=== PATIENT | male | born 1935 | race Two or more races ===

== ENCOUNTER 2017-01-18 18:46 | Inpatient (IN) | payer MEDICARE, OTHER ==
[~2017-01-18] VITALS: Ht 165.1 cm; Wt 61.2 kg
[2017-01-18] MEDS ORDERED: TAMSULOSIN HCL0.4 MG ORAL (19:06)
[2017-01-18] MEDS ORDERED: DEXAMETHASONE4 M1 PO (19:06)
[2017-01-18] MEDS ORDERED: FENTANYL1 EAC1 TOPIC (19:06)
[2017-01-18] MEDS ORDERED: REVLIMID15 MG PO (19:06)
[2017-01-18] MEDS ORDERED: HYDROMORPHO2 MG/1 M5 PO (19:06)
[2017-01-18 19:30] VITALS: BP 122/88
[2017-01-18 19:58] LABS: APPEARANCE,URINE CLEAR; KETONES,URINE 1+ (NEGATIVE); LEUKOCYTE ESTERASE ,URINE NEGATIVE (NEGATIVE); NITRITE,URINE NEGATIVE (NEGATIVE); PH,URINE 6 (4.5-8.0); PROTEIN,URINE 3+ (NEGATIVE); UROBILINOGEN,URINE 1 MG/DL (0.0-1.0)
[2017-01-18 20:08] LABS: ANION GAP 10 mmol/L (5-15); CALCIUM 8.6 MG/DL (8.5-10.1); CARBON DIOXIDE 26 MMOL/L (21-32); CHLORIDE 98 MMOL/L (98-107); CREATININE 1.5 MG/DL (0.55-1.30); MEAN CORPUSCULAR HEMOGLOBIN 28.9 PG (27.0-31.0); MEAN CORPUSCULAR HGB CONC 31.4 G/DL (32.0-36.0); MEAN CORPUSCULAR VOLUME 92 FL (80-99); MEAN PLATELET VOLUME 5.9 FL (6.5-10.1); PLATELET COUNT 169 K/UL (150-450); RED BLOOD COUNT 2.54 M/UL (4.70-6.10); RED CELL DISTRIBUTION WIDTH 16.8 % (11.6-14.8); SODIUM 133 MMOL/L (136-145); WHITE BLOOD COUNT 7.5 K/UL (4.8-10.8)
[2017-01-18 20:22] LABS: ALANINE AMINOTRANSFERASE 21 U/L (12-78); ALBUMIN/GLOBULIN RATIO 0.4 (1.0-2.7); ASPARTATE AMINO TRANSFERASE 46 U/L (15-37); TOTAL PROTEIN 7.5 G/DL (6.4-8.2)
[2017-01-18 20:23] LABS: BACTERIA,URINE FEW /HPF; WBC,URINE 0-2 /HPF (0 - 0)
[2017-01-18 20:30] VITALS: BP 126/84
[2017-01-18 21:05] LABS: BAND NEUTROPHILS % (MANUAL) 1 % (0-8); LYMPHOCYTES % (MANUAL) 10 % (20-45); NEUTROPHILS % (MANUAL) 80 % (45-75); TOTAL CELLS COUNTED 100
[2017-01-18 21:06] LABS: ANISOCYTOSIS 1+; BASOPHILS % (MANUAL) 0 % (0-2); EOSINOPHILS % (MANUAL) 0 % (0-3); PLATELET ESTIMATE DECREASED
[2017-01-18 21:07] LABS: PLATELET MORPHOLOGY NORMAL; POLYCHROMASIA 1+
[2017-01-18 21:45] VITALS: BP 130/82
--- NOTE | 2017-01-18 22:50 | Emergency Room Report ---
History of Present Illness General Chief Complaint: Altered Level of Consciousness Source: Medical Record, EMS Present Illness HPI 81-year-old male presents ED for evaluation. Patient brought in by EMS for evaluation. Per EMS patient has had multiple falls at home today. Patient appears weak and more lethargic than usual. Patient also is of low grade fever. Upon arrival patient showing no signs of distress. Patient is unable to provide any additional history at this time. No other aggravating or relieving factors. No other associated symptoms Allergies: Coded Allergies: No Known Allergies (Unverified , 01/18/17) Patient History Past Medical History: DM, other - multiple myeloma Social History: Denies: smoking, alcohol use, drug use Immunizations: UTD Reviewed Nursing Documentation: PMH: Agreed, PSxH: Agreed Nursing Documentation-PMH Past Medical History: No History, Except For Hx Diabetes: Yes - dm2 Hx Cancer: Yes - multiple myleoma Review of Systems All Other Systems: limited Physical Exam Vital Signs Date Time Temp Pulse Resp B/P (MAP) Pulse Ox O2 Delivery O2 Flow Rate FiO2 01/18/17 18:55 100.8 110 16 126/88 98 Sp02 EP Interpretation: reviewed, normal General Appearance: no apparent distress, alert, GCS 15, non-toxic Head: normocephalic, atraumatic Eyes: bilateral eye normal inspection, bilateral eye PERRL ENT: hearing grossly normal, normal pharynx, no angioedema, normal voice Neck: full range of motion, supple/symm/no masses Respiratory: chest non-tender, lungs clear, normal breath sounds, speaking full sentences Cardiovascular #1: regular rate, rhythm, no edema Cardiovascular #2: 2+ carotid (R), 2+ carotid (L), 2+ radial (R), 2+ radial (L) , 2+ dorsalis pedis (R), 2+ dorsalis pedis (L) Gastrointestinal: normal bowel sounds, non tender, soft, non-distended, no guarding, no rebound Rectal: deferred Genitourinary: normal inspection, no CVA tenderness Musculoskeletal: back normal, gait/station normal, normal range of motion, non- tender Neurologic: other - lethargic Psychiatric: other - lethargic Reflexes: 3+ bicep (R), 3+ bicep (L), 3+ tricep (R), 3+ tricep (L), 3+ knee (R) , 3+ knee (L) Skin: normal color, no rash, warm/dry, well hydrated Lymphatic: no adenopathy Medical Decision Making Diagnostic Impression: Primary Impression: Altered level of consciousness Additional Impressions: Anemia Qualified Codes: D64.9 - Anemia, unspecified CHF (congestive heart failure) Qualified Codes: I50.9 - Heart failure, unspecified Renal insufficiency ER Course Hospital Course 81-year-old male presents with multiple falls, weakness, low-grade fever Differential diagnoses include: [place]/unstable angina, arrythmia, dehydration, CVA/ TIA Clinical course Patient placed on stretcher. on monitoring analyst. After initial history and physical I ordered labs, EKG, chest x-ray, IVFs, CT Brain labs reviewed- no leukocytosis, hemoglobin/hematocrit 7.3/23.4, K 3.0, Cr 1.5, BNP elevated, troponins negative EKG- NSR, no acute ischemic changes interpreted by me Chest x-ray- cardiomegaly. congestion CT brain-unremarkable Abx given. Case discussed with Dr. Gallo and he agreed to accept the patient to his service for further care and support I. I feel this is a highly complex case requiring extensive working including EKG/Rhythm strip, Xray/CT/US, Blood/urine lab work, repeat exams while in ED, and administration of strong opiates/narcotics for pain control, admission to hospital or close patient follow up. Diagnosis - ALOC, anemia, CHF, renal insufficiency admitted to telemetry in serious condition Labs Test 01/18/17 19:30 White Blood Count 7.5 K/UL (4.8-10.8) Red Blood Count 2.54 M/UL (4.70-6.10) Hemoglobin 7.3 G/DL (14.2-18.0) Hematocrit 23.4 % (42.0-52.0) Mean Corpuscular Volume 92 FL (80-99) Mean Corpuscular Hemoglobin 28.9 PG (27.0-31.0) Mean Corpuscular Hemoglobin Concent 31.4 G/DL (32.0-36.0) Red Cell Distribution Width 16.8 % (11.6-14.8) Platelet Count 169 K/UL (150-450) Mean Platelet Volume 5.9 FL (6.5-10.1) Neutrophils (%) (Auto) % (45.0-75.0) Lymphocytes (%) (Auto) % (20.0-45.0) Monocytes (%) (Auto) % (1.0-10.0) Eosinophils (%) (Auto) % (0.0-3.0) Basophils (%) (Auto) % (0.0-2.0) Differential Total Cells Counted 100 Neutrophils % (Manual) 80 % (45-75) Lymphocytes % (Manual) 10 % (20-45) Monocytes % (Manual) 9 % (1-10) Eosinophils % (Manual) 0 % (0-3) Basophils % (Manual) 0 % (0-2) Band Neutrophils 1 % (0-8) Platelet Estimate Decreased Platelet Morphology Normal Polychromasia 1+ Anisocytosis 1+ Urine Color Yellow Urine Appearance Clear Urine pH 6 (4.5-8.0) Urine Specific [place] 1.010 (1.005-1.035) Urine Protein 3+ (NEGATIVE) Urine Glucose (UA) Negative (NEGATIVE) Urine Ketones 1+ (NEGATIVE) Urine Occult Blood 4+ (NEGATIVE) Urine Nitrite Negative (NEGATIVE) Urine Bilirubin Negative (NEGATIVE) Urine Urobilinogen 1 MG/DL (0.0-1.0) Urine Leukocyte Esterase Negative (NEGATIVE) Urine RBC 5-10 /HPF (0 - 0) Urine WBC 0-2 /HPF (0 - 0) Urine Squamous Epithelial Cells None /LPF (NONE/OCC) Urine Bacteria Few /HPF (NONE) Sodium Level 133 MMOL/L (136-145) Potassium Level 3.0 MMOL/L (3.5-5.1) Chloride Level 98 MMOL/L (98-107) Carbon Dioxide Level 26 MMOL/L (21-32) Anion Gap 10 mmol/L (5-15) Blood Urea Nitrogen 24 mg/dL (7-18) Creatinine 1.5 MG/DL (0.55-1.30) Estimat Glomerular Filtration Rate mL/min (>60) Glucose Level 162 MG/DL (74-106) Lactic Acid Level 1.30 mmol/L (0.66-2.22) Calcium Level 8.6 MG/DL (8.5-10.1) Total Bilirubin 1.0 MG/DL (0.2-1.0) Aspartate Amino Transf (AST/SGOT) 46 U/L (15-37) Alanine Aminotransferase (ALT/SGPT) 21 U/L (12-78) Alkaline Phosphatase 132 U/L (46-116) Total Creatine Kinase 17 U/L (26-308) Creatine Kinase MB 1.0 NG/ML (0.0-3.6) Creatine Kinase MB Relative Index 5.8 Troponin I 0.013 ng/mL (0.000-0.056) Pro-B-Type Natriuretic Peptide 1892 pg/mL (0-125) Total Protein 7.5 G/DL (6.4-8.2) Albumin 2.3 G/DL (3.4-5.0) Globulin 5.2 g/dL Albumin/Globulin Ratio 0.4 (1.0-2.7) EKG Diagnostic Results Rate: normal Rhythm: NSR ST Segments: no acute changes ASA given to the pt in ED: No Rhythm Strip Diag. Results EP Interpretation: yes Rhythm: NSR, no PVC's, no ectopy Chest X-Ray Diagnostic Results Chest X-Ray Diagnostic Results : Chest X-Ray Ordered: Yes # of Views/Limited/Complete: 1 View Indication: Shortness of Breath EP Interpretation: Yes Interpretation: no pneumothorax, no acute cardiopulmonary disease, other - cardiomegaly. pulmonary congestion Impression: Other - chf Electronically Signed by: Electronically signed by Pradeep Fraire MD CT/MRI/US Diagnostic Results CT/MRI/US Diagnostic Results : Imaging Test Ordered: CT head Impression no acute process Last Vital Signs Date Time Temp Pulse Resp B/P (MAP) Pulse Ox O2 Delivery O2 Flow Rate FiO2 01/18/17 18:55 100.8 110 16 126/88 98 Status: improved Disposition: ADMITTED INPATIENT Condition: Serious Referrals: [facility],REFERRING (PCP) PRADEEP FRAIRE M.D. Jan 18, 2017 22:50
[2017-01-18 23:00] VITALS: BP 126/77
[2017-01-19] VITALS (7 sets, daily range): BP systolic 128–137; BP diastolic 60–81
[2017-01-19] MEDS ORDERED: Hydromorphone 0.5mg/0.5ml inj IVP STA (00:31)
[2017-01-19 02:11] LABS: MEAN CORPUSCULAR HEMOGLOBIN 29.7 PG (27.0-31.0); MEAN CORPUSCULAR HGB CONC 32.4 G/DL (32.0-36.0); MEAN CORPUSCULAR VOLUME 92 FL (80-99); MEAN PLATELET VOLUME 7.3 FL (6.5-10.1); PLATELET COUNT 150 K/UL (150-450); RED BLOOD COUNT 2.17 M/UL (4.70-6.10); RED CELL DISTRIBUTION WIDTH 17.2 % (11.6-14.8); WHITE BLOOD COUNT 5.4 K/UL (4.8-10.8)
[2017-01-19 02:36] LABS: ALANINE AMINOTRANSFERASE 16 U/L (12-78); ALBUMIN/GLOBULIN RATIO 0.3 (1.0-2.7); ANION GAP 8 mmol/L (5-15); ASPARTATE AMINO TRANSFERASE 35 U/L (15-37); CALCIUM 8.5 MG/DL (8.5-10.1); CARBON DIOXIDE 25 MMOL/L (21-32); CHLORIDE 101 MMOL/L (98-107); CREATININE 1.3 MG/DL (0.55-1.30); POTASSIUM 3.1 MMOL/L (3.5-5.1); SODIUM 134 MMOL/L (136-145); TOTAL PROTEIN 7.2 G/DL (6.4-8.2)
[2017-01-19] MEDS ORDERED: Azithromycin 250mg tab ORAL SCH (09:30)
[2017-01-19] MEDS ORDERED: Azithromycin 250mg tab ORAL ONE (09:30)
--- NOTE | 2017-01-19 10:39 | Diagnostic Imaging Report ---
Indication: Chest pain Technique: One view of the chest Comparison: none Findings: Patient's chin obscures the upper mediastinum. Inspiration is suboptimal, with atelectasis at the lung bases and crowding of the vascular markings. No definite acute infiltrates or effusions. Impression: Somewhat limited exam. No definite acute process
[2017-01-19] MEDS ORDERED: KCl 10% 40mEq/30ml liquid ORAL ONE (11:00)
--- NOTE | 2017-01-19 11:06 | Diagnostic Imaging Report ---
Indication: Mental status Technique: spiral acquisitions obtained through the brain. Angled axial and coronal 5 x 5 mm slices were reconstructed. No IV contrast utilized. Radiation dose was minimized using automated exposure control Total dose length product 1467 mGycm. CTDIvol(s) 70 mGy Comparison: none FINDINGS: No acute hemorrhage or edema. No mass effect or midline shift. There is mild age-related enlargement of the ventricles and extra axial CSF spaces. There is minimal periventricular deep white matter ischemic change. Normal shah-white differentiation. Visualized orbits are unremarkable. Visualized sinuses are unremarkable. Intact calvarium. IMPRESSION: Chronic and age-related changes. Negative for acute intracranial bleed or mass effect This agrees with the preliminary interpretation provided overnight by [facility] teleradiology service. The CT scanner at [facility] is accredited by the [employer] and the scans are performed using protocols designed to limit radiation exposure to as low as reasonably achievable to attain images of sufficient resolution adequate for diagnostic evaluation
--- NOTE | 2017-01-19 11:10 | GI Initial Consult Note ---
Kady Verma N.PRenzo 01/19/17 1110: History of Present Illness General Date patient seen: Jan 19, 2017 Time patient seen: 11:05 Reason for Hospitalization: Altered Level of Consciousness Referring physician: BENJI ZAZUETA Reason for Consultation: ANEMIA Present Illness HPI 81-year-old male presents ED for evaluation. Patient brought in by EMS for evaluation. Per EMS patient has had multiple falls at home today. Patient appears weak and more lethargic than usual. Patient also is of low grade fever. Upon arrival patient showing no signs of distress. Patient is unable to provide any additional history at this time. No other aggravating or relieving factors. No other associated symptoms GI consulted for anemia. HPI as noted above. Pt seen on floor, awake A&Ox4 NAD with no active s/sx of N/V/D. Patient had recent BM this morning, denies any melena or hematochezia. He presents today with history multiple myeloma, severe anemia requiring blood transfusion and hypoalbuminemia. No history of endoscopic / colonoscopies. Home Meds Reported Medications Fentanyl 50MCG Patch (FENTANYL 50MCG PATCH*) 1 Each Patch.td72, 1 PATCH TOPIC, PATCH 01/18/17 Hydromorphone Hcl/Pf (HYDROMORPHONE 2 MG/ML SYRINGE*) 2 Mg/1 Ml Disp.syrin, 2 MG PO, EA 0 Refills 01/18/17 Tamsulosin Hcl (TAMSULOSIN HCL*) 0.4 Mg Cap.er.24h, 0.4 MG ORAL BEDTIME, CAP 01/18/17 Lenalidomide (REVLIMID) 15 Mg Capsule, 15 MG PO, CAP 01/18/17 Dexamethasone (DEXAMETHASONE) 4 Mg Tablet, 4 MG PO DAILY, TAB 01/18/17 Med list reviewed/reconciled: Yes Allergies: Coded Allergies: No Known Allergies (Unverified , 01/18/17) Patient History History Provided By: Patient, Medical Record PMH Narrative Past Medical History: DM, other - multiple myeloma Social History: Denies: smoking, alcohol use, drug use Immunizations: UTD Reviewed Nursing Documentation: PMH: Agreed, PSxH: Agreed Nursing Documentation-PMH Past Medical History: No History, Except For Hx Diabetes: Yes - dm2 Hx Cancer: Yes - multiple myeloma Social History: Denies: smoking, alcohol use, drug use, other Review of Systems All Other Systems: negative except mentioned in HPI Physical Exam Vital Signs Date Time Temp Pulse Resp B/P (MAP) Pulse Ox O2 Delivery O2 Flow Rate FiO2 01/18/17 18:55 100.8 110 16 126/88 98 01/18/17 19:30 Room Air Sp02 EP Interpretation: reviewed, normal Labs Laboratory Tests Test 01/18/17 19:30 01/19/17 01:35 White Blood Count 7.5 K/UL (4.8-10.8) 5.4 K/UL (4.8-10.8) Red Blood Count 2.54 M/UL (4.70-6.10) L 2.17 M/UL (4.70-6.10) L Hemoglobin 7.3 G/DL (14.2-18.0) L 6.5 G/DL (14.2-18.0) *L Hematocrit 23.4 % (42.0-52.0) L 19.9 % (42.0-52.0) L Mean Corpuscular Volume 92 FL (80-99) 92 FL (80-99) Mean Corpuscular Hemoglobin 28.9 PG (27.0-31.0) 29.7 PG (27.0-31.0) Mean Corpuscular Hemoglobin Concent 31.4 G/DL (32.0-36.0) L 32.4 G/DL (32.0-36.0) Red Cell Distribution Width 16.8 % (11.6-14.8) H 17.2 % (11.6-14.8) H Platelet Count 169 K/UL (150-450) 150 K/UL (150-450) Mean Platelet Volume 5.9 FL (6.5-10.1) L 7.3 FL (6.5-10.1) Neutrophils (%) (Auto) % (45.0-75.0) % (45.0-75.0) Lymphocytes (%) (Auto) % (20.0-45.0) % (20.0-45.0) Monocytes (%) (Auto) % (1.0-10.0) % (1.0-10.0) Eosinophils (%) (Auto) % (0.0-3.0) % (0.0-3.0) Basophils (%) (Auto) % (0.0-2.0) % (0.0-2.0) Differential Total Cells Counted 100 Neutrophils % (Manual) 80 % (45-75) H Lymphocytes % (Manual) 10 % (20-45) L Monocytes % (Manual) 9 % (1-10) Eosinophils % (Manual) 0 % (0-3) Basophils % (Manual) 0 % (0-2) Band Neutrophils 1 % (0-8) Platelet Estimate Decreased L Platelet Morphology Normal Polychromasia 1+ Anisocytosis 1+ Urine Color Yellow Urine Appearance Clear Urine pH 6 (4.5-8.0) Urine Specific [place] 1.010 (1.005-1.035) Urine Protein 3+ (NEGATIVE) H Urine Glucose (UA) Negative (NEGATIVE) Urine Ketones 1+ (NEGATIVE) H Urine Occult Blood 4+ (NEGATIVE) H Urine Nitrite Negative (NEGATIVE) Urine Bilirubin Negative (NEGATIVE) Urine Urobilinogen 1 MG/DL (0.0-1.0) H Urine Leukocyte Esterase Negative (NEGATIVE) Urine RBC 5-10 /HPF (0 - 0) H Urine WBC 0-2 /HPF (0 - 0) Urine Squamous Epithelial Cells None /LPF (NONE/OCC) Urine Bacteria Few /HPF (NONE) Sodium Level 133 MMOL/L (136-145) L 134 MMOL/L (136-145) L Potassium Level 3.0 MMOL/L (3.5-5.1) L 3.1 MMOL/L (3.5-5.1) L Chloride Level 98 MMOL/L (98-107) 101 MMOL/L (98-107) Carbon Dioxide Level 26 MMOL/L (21-32) 25 MMOL/L (21-32) Anion Gap 10 mmol/L (5-15) 8 mmol/L (5-15) Blood Urea Nitrogen 24 mg/dL (7-18) H 21 mg/dL (7-18) H Creatinine 1.5 MG/DL (0.55-1.30) H 1.3 MG/DL (0.55-1.30) Estimat Glomerular Filtration Rate mL/min (>60) mL/min (>60) Glucose Level 162 MG/DL (74-106) H 136 MG/DL (74-106) H Lactic Acid Level 1.30 mmol/L (0.66-2.22) Calcium Level 8.6 MG/DL (8.5-10.1) 8.5 MG/DL (8.5-10.1) Total Bilirubin 1.0 MG/DL (0.2-1.0) 0.7 MG/DL (0.2-1.0) Aspartate Amino Transf (AST/SGOT) 46 U/L (15-37) H 35 U/L (15-37) Alanine Aminotransferase (ALT/SGPT) 21 U/L (12-78) 16 U/L (12-78) Alkaline Phosphatase 132 U/L (46-116) H 104 U/L (46-116) Total Creatine Kinase 17 U/L (26-308) L Creatine Kinase MB 1.0 NG/ML (0.0-3.6) Creatine Kinase MB Relative Index 5.8 Troponin I 0.013 ng/mL (0.000-0.056) Pro-B-Type Natriuretic Peptide 1892 pg/mL (0-125) H Total Protein 7.5 G/DL (6.4-8.2) 7.2 G/DL (6.4-8.2) Albumin 2.3 G/DL (3.4-5.0) L 1.8 G/DL (3.4-5.0) L Globulin 5.2 g/dL 5.4 g/dL Albumin/Globulin Ratio 0.4 (1.0-2.7) L 0.3 (1.0-2.7) L General Appearance: well appearing, no apparent distress, alert Head: normocephalic EENT: PERRL/EOMI, normal ENT inspection Neck: supple Respiratory: normal breath sounds, no respiratory distress Cardiovascular: normal rate Gastrointestinal: normal inspection, non tender, soft, normal bowel sounds, non -distended Rectal: deferred Genitourinary: deferred Musculoskeletal: normal inspection, back normal Neurologic: normal inspection, alert, oriented x3, responsive Psychiatric: normal inspection, judgement/insight normal, memory normal Skin: normal inspection, normal color, no rash, warm/dry, palpation normal, well hydrated Lymphatic: normal inspection, no adenopathy Current Medications Current Medications Medications (Trade) Dose Ordered Sig/Ashli Route PRN Reason Start Time Stop Time Status Last Admin Dose Admin Acetaminophen (Tylenol) 650 mg Q4H PRN ORAL Mild Pain/Temp > 100.5 01/19/17 00:00 02/18/17 00:00 01/19/17 02:28 Azithromycin (Zithromax) 250 mg DAILY ORAL 01/20/17 09:00 01/23/17 09:15 Ceftriaxone Sodium 1 gm/ Dextrose 55 ml @ 110 mls/hr Q24H IVPB 01/19/17 11:00 01/26/17 10:59 Potassium Chloride (KCl 10% 40mEq Oral solution) 40 meq ONCE ONCE ORAL 01/19/17 11:00 01/19/17 11:01 GI: Plan Problems: (1) Multiple myeloma (2) Anemia Plan fu onc recs will consider GI procedures pending work up anemia work up OB stool r/o GI bleed monitor H&H, prn transfusions bowel regime ppi fu labs Discussed with Dr. Prasad. Thank you for this patient referral, we will follow. EMILIA PRASAD 01/24/17 0933: History of Present Illness General Reason for Hospitalization: Altered Level of Consciousness Present Illness Home Meds Reported Medications Fentanyl 50MCG Patch (FENTANYL 50MCG PATCH*) 1 Each Patch.td72, 1 PATCH TOPIC, PATCH 01/18/17 Hydromorphone Hcl/Pf (HYDROMORPHONE 2 MG/ML SYRINGE*) 2 Mg/1 Ml Disp.syrin, 2 MG PO, EA 0 Refills 01/18/17 Tamsulosin Hcl (TAMSULOSIN HCL*) 0.4 Mg Cap.er.24h, 0.4 MG ORAL BEDTIME, CAP 01/18/17 Lenalidomide (REVLIMID) 15 Mg Capsule, 15 MG PO, CAP 01/18/17 Dexamethasone (DEXAMETHASONE) 4 Mg Tablet, 4 MG PO DAILY, TAB 01/18/17 Allergies: Coded Allergies: No Known Allergies (Unverified , 01/18/17) GI: Plan Plan The patient was seen and examined at bedside and all new and available data was reviewed in the patients chart. I agree with the above findings, impression and plan. (Patient seen earlier today. Signature stamp does not reflect patient encounter time.). - MD Luci Haque Anh Brandyn N.PRenzo Jan 19, 2017 11:10 EMILIA PRASAD Jan 24, 2017 09:33
[2017-01-19] MEDS: cefTRIAXone 1 GM in D5W 55 ML IVPB SCH (11:28)
--- NOTE | 2017-01-19 12:04 | Consultation ---
Consult Note Consult Note 81-year-old male presents ED for evaluation. Patient brought in by EMS for evaluation. Per EMS patient has had multiple falls at home today. Patient appears weak and more lethargic than usual. Patient also is of low grade fever. Upon arrival patient showing no signs of distress. Patient is unable to provide any additional history at this time. No other aggravating or relieving factors. No other associated symptoms Allergies: No Known Allergies (Unverified , 01/18/17) Past Medical History: DM, other - multiple myeloma Past Medical History: No History, Except For Hx Diabetes: Yes - dm2 Hx Cancer: Yes - multiple myleoma Assessment/Plan Severe Anemia Proteinuria HypoAlbuminemia Low K Low Na MM DMII NS- K supplement- 24 H urine Protein monitor renal parameters- per consultants SHWETHA GAMBOA Jan 19, 2017 12:04
[2017-01-19 12:37] LABS: OTHERS PATHOLOGIST COMMENT
--- NOTE | 2017-01-19 13:01 | Consultation ---
Consult Note Assessment/Plan dict atelectasis fever, doubt pneumonia myeloma anemia, severe repeat CXR hematology eval ID consult CHLOE BROWN Jan 19, 2017 13:00
[2017-01-19] MEDS ORDERED: Potassium Chloride 40 MEQ in Sodium Chloride 500ML 550 ML IVPB ONE (14:00)
--- NOTE | 2017-01-19 15:56 | Cardiology Report ---
APPROVED REPORT EKG Measurement Heart [id number] [id number] Normal sinus rhythm Right bundle branch block Voltage criteria for left ventricular hypertrophy Abnormal ECG
--- NOTE | 2017-01-19 19:59 | Cardiology Progress Note ---
Assessment/Plan Assessment/Plan The patient is seen and examined, full consult note will be dictated soon. Objective Last 24 Hour Vital Signs Date Time Temp Pulse Resp B/P (MAP) Pulse Ox O2 Delivery O2 Flow Rate FiO2 01/19/17 16:00 97.8 83 18 131/80 98 Room Air 01/19/17 16:00 88 01/19/17 12:00 98.0 90 19 137/72 99 Room Air 01/19/17 12:00 93 01/19/17 08:00 97.8 83 18 131/80 98 Room Air 01/19/17 08:00 79 01/19/17 04:00 75 01/19/17 03:27 98.8 01/19/17 02:30 97.5 80 18 133/60 98 01/19/17 01:50 98.8 105 16 133/81 98 Room Air 01/19/17 00:54 98.8 105 16 133/81 98 Room Air 01/18/17 23:00 98.6 109 17 126/77 98 Room Air 01/18/17 21:45 99.6 112 18 130/82 98 Room Air 01/18/17 20:30 99.4 105 16 126/84 98 Room Air Intake and Output 01/19/17 01/20/17 19:00 07:00 Intake Total 1282.5 ml 142.5 ml Output Total 1000 ml Balance 282.5 ml 142.5 ml Intake Oral 500 ml IV Total 532.5 ml 142.5 ml Blood Product 250 ml Output Urine Total 1000 ml # Bowel Movements 1 Laboratory Tests Test 01/19/17 01:35 01/19/17 12:30 White Blood Count 5.4 K/UL (4.8-10.8) Red Blood Count 2.17 M/UL (4.70-6.10) L Hemoglobin 6.5 G/DL (14.2-18.0) *L Hematocrit 19.9 % (42.0-52.0) L Mean Corpuscular Volume 92 FL (80-99) Mean Corpuscular Hemoglobin 29.7 PG (27.0-31.0) Mean Corpuscular Hemoglobin Concent 32.4 G/DL (32.0-36.0) Red Cell Distribution Width 17.2 % (11.6-14.8) H Platelet Count 150 K/UL (150-450) Mean Platelet Volume 7.3 FL (6.5-10.1) Neutrophils (%) (Auto) % (45.0-75.0) Lymphocytes (%) (Auto) % (20.0-45.0) Monocytes (%) (Auto) % (1.0-10.0) Eosinophils (%) (Auto) % (0.0-3.0) Basophils (%) (Auto) % (0.0-2.0) Sodium Level 134 MMOL/L (136-145) L Potassium Level 3.1 MMOL/L (3.5-5.1) L Chloride Level 101 MMOL/L (98-107) Carbon Dioxide Level 25 MMOL/L (21-32) Anion Gap 8 mmol/L (5-15) Blood Urea Nitrogen 21 mg/dL (7-18) H Creatinine 1.3 MG/DL (0.55-1.30) Estimat Glomerular Filtration Rate mL/min (>60) Glucose Level 136 MG/DL (74-106) H Calcium Level 8.5 MG/DL (8.5-10.1) Total Bilirubin 0.7 MG/DL (0.2-1.0) Aspartate Amino Transf (AST/SGOT) 35 U/L (15-37) Alanine Aminotransferase (ALT/SGPT) 16 U/L (12-78) Alkaline Phosphatase 104 U/L (46-116) Total Protein 7.2 G/DL (6.4-8.2) Albumin 1.8 G/DL (3.4-5.0) L Globulin 5.4 g/dL Albumin/Globulin Ratio 0.3 (1.0-2.7) L Stool Occult Blood Pending SILVA VALENZUELA Jan 19, 2017 19:59
--- NOTE | 2017-01-19 20:46 | Consultation ---
DATE OF CONSULTATION: 01/19/2017 INFECTIOUS DISEASE CONSULTATION CONSULTING PHYSICIAN: Toby Vu M.D. This consult is for coverage of Dr. Cee. PRIMARY ATTENDING PHYSICIAN: Parth Gallo M.D. REASON FOR CONSULTATION: Pneumonia. HISTORY OF PRESENT ILLNESS: This is an 81-year-old male admitted yesterday with altered mental status, lethargy, and frequent fall. The patient feels weak. He has multiple myeloma. At the time of admission, he had a temperature of 100.8 degrees. He also was tachycardic with pulse rate of 110. PAST MEDICAL HISTORY: Diabetes and multiple myeloma. The patient has significant weight loss recently. MEDICATIONS: Getting Zofran and Tylenol. Got a dose of Levaquin in ER. ALLERGIES: No known drug allergies. SOCIAL HISTORY: . Lives at home with daughter. No history of alcohol, drug abuse, or smoking. REVIEW OF SYSTEMS: No sore throat. No runny nose. No significant coughing. No nausea. No vomiting. No dysuria. Mostly complaining of generalized weakness. PHYSICAL EXAMINATION: VITAL SIGNS: Temperature 98.8 degrees and pulse 75. He has a pulse of 110 and a temperature of 100.8 degrees at the time of admission. HEAD AND NECK: Pale conjunctivae. No oral lesion. HEART: Regular. LUNGS: Clear. ABDOMEN: Soft and nontender. EXTREMITIES: No edema. He has severe muscle atrophy. LABORATORY AND DIAGNOSTIC DATA: WBC 5.4, hemoglobin 6.5, hematocrit 19.9, and platelets 150. Sodium 134, potassium 3.1, chloride 101, bicarbonate 25, BUN 21, and creatinine 1.3. Creatinine at the time of admission was 1.5. Glucose is 136. Albumin is 1.8. CT scan of the head without contrast was negative. Chest x-ray infiltrates and congestion. The official report is not back yet. IMPRESSION: Sepsis and systemic inflammatory response syndrome with fever and tachycardia. The patient has severe anemia. He has multiple myeloma, diabetes mellitus, hypokalemia, cachexia, and decrease in albumin. He may have also acute renal failure. We will start the patient on ceftriaxone and Zithromax. We will follow up the cultures. At the end of my exam, I thank Dr. Gallo for involving me in the care of this patient. Toby Vu M.D. DR: Josias JOB#: [id number] CC: BRAD
[2017-01-19 21:06] LABS: LYMPHOCYTES % (MANUAL) 8 % (20-45); NEUTROPHILS % (MANUAL) 87 % (45-75); TOTAL CELLS COUNTED 100
[2017-01-19 21:07] LABS: ANISOCYTOSIS 1+; BAND NEUTROPHILS % (MANUAL) 0 % (0-8); BASOPHILS % (MANUAL) 0 % (0-2); EOSINOPHILS % (MANUAL) 0 % (0-3); PLATELET ESTIMATE DECREASED; PLATELET MORPHOLOGY NORMAL; POLYCHROMASIA 1+
--- NOTE | 2017-01-19 21:16 | Consultation ---
DATE OF CONSULTATION: 01/19/2017 PULMONARY CONSULTATION CONSULTING PHYSICIAN: Jeremias Huynh M.D. HISTORY OF PRESENT ILLNESS: This 81-year-old man came to the emergency department because of lethargy. He is a poor historian. He states he has occasional cough and sputum, but no shortness of breath or chest pain. I was asked to see him in consultation regarding an abnormal chest x-ray. PAST MEDICAL HISTORY: The patient cannot provide much information, but does report that he has bone cancer suggesting multiple myeloma. He has history of diabetes. SOCIAL HISTORY: He smoked for a short time in high school, but he does not drink. ALLERGIES: None. MEDICATIONS: Reviewed. He is on multiple pain medications and steroids. CODE STATUS: Full code. REVIEW OF SYSTEMS: He has difficulty ambulating. He is very weak. He has no chest pain or palpitations. He has no nausea, vomiting, or diarrhea. He is noted to have anemia. PHYSICAL EXAMINATION: GENERAL: The patient is alert and responds appropriately, but had a low-grade fever. He is weak. He is somewhat overweight. HEENT: Head is normocephalic. NECK: No jugular venous distention. CHEST: Clear. CARDIAC: Rhythm is regular. ABDOMEN: Soft and nontender. Liver and spleen not enlarged. EXTREMITIES: No clubbing, cyanosis, or edema. DIAGNOSTIC DATA: Chest x-ray shows basilar atelectasis. IMPRESSION: 1. Low-grade fever, unclear etiology, possible sepsis. 2. Multiple myeloma. 3. Bibasilar atelectasis, unlikely pneumonia. 4. Diabetes. PLAN: The patient is severely anemic and will require blood transfusion. We will observe his respiratory status as his saturation is satisfactory on room air at 99% and he has no active pulmonary symptoms. Thank you for asking me to see him in consultation. I will follow as needed. Jeremias Huynh M.D. DR: BEL JOB#: [id number] CC: Parth Gallo M.D.; Fax#: [phone] JEREMIAS HUYNH M.D. ; FAX#: [phone]
[2017-01-20] VITALS: BP 123/58
[2017-01-20 04:00] VITALS: BP 136/66
[2017-01-20 04:33] LABS: MEAN CORPUSCULAR HEMOGLOBIN 31.3 PG (27.0-31.0); MEAN CORPUSCULAR VOLUME 92 FL (80-99); MEAN PLATELET VOLUME 6.1 FL (6.5-10.1); PLATELET COUNT 163 K/UL (150-450); RED BLOOD COUNT 2.29 M/UL (4.70-6.10); RED CELL DISTRIBUTION WIDTH 16.6 % (11.6-14.8); WHITE BLOOD COUNT 5.7 K/UL (4.8-10.8)
[2017-01-20 04:35] LABS: INR 1.1 (0.9-1.1); PROTHROMBIN TIME 11.1 SEC (9.30-11.50)
[2017-01-20 05:12] LABS: CRP QUANT 36.2 mg/dL (0.00-0.90); MAGNESIUM 1.6 MG/DL (1.8-2.4); PHOSPHORUS 2.1 MG/DL (2.5-4.9); URIC ACID 2.7 MG/DL (2.6-7.2)
[2017-01-20 05:37] LABS: ALANINE AMINOTRANSFERASE 19 U/L (12-78); ALBUMIN/GLOBULIN RATIO 0.3 (1.0-2.7); ANION GAP 7 mmol/L (5-15); ASPARTATE AMINO TRANSFERASE 28 U/L (15-37); CALCIUM 8.6 MG/DL (8.5-10.1); CARBON DIOXIDE 22 MMOL/L (21-32); CHLORIDE 106 MMOL/L (98-107); CREATININE 1.3 MG/DL (0.55-1.30); FERRITIN 1264 NG/ML (8-388); POTASSIUM 3.8 MMOL/L (3.5-5.1); SODIUM 135 MMOL/L (136-145); THYROID STIMULATING HORMONE 1.795 uiU/mL (0.358-3.740); TOTAL PROTEIN 7.3 G/DL (6.4-8.2)
--- NOTE | 2017-01-20 05:44 | General Progress Note ---
Assessment/Plan Problem List: (1) DM (diabetes mellitus) ICD Codes: E11.9 - Type 2 diabetes mellitus without complications SNOMED: 77109954 (2) Anemia ICD Codes: D64.9 - Anemia, unspecified SNOMED: 860876211 Qualifiers: Qualified Codes: D64.9 - Anemia, unspecified (3) Altered level of consciousness ICD Codes: R40.4 - Transient alteration of awareness SNOMED: 0166876 (4) Multiple myeloma ICD Codes: C90.00 - Multiple myeloma not having achieved remission SNOMED: 267159450 Assessment/Plan fu stool ob fu CEA monitoe H&H GI procedures on hold abd CT ordered Subjective ROS Limited/Unobtainable: No Allergies: Coded Allergies: No Known Allergies (Unverified , 01/18/17) Objective Last 24 Hour Vital Signs Date Time Temp Pulse Resp B/P (MAP) Pulse Ox O2 Delivery O2 Flow Rate FiO2 01/20/17 04:00 97.5 81 16 136/66 100 Room Air 81 01/20/17 00:00 97.3 90 20 123/58 100 Room Air 90 01/20/17 00:00 94 01/19/17 20:00 98.0 105 19 130/71 100 Room Air 105 01/19/17 20:00 109 01/19/17 16:00 97.8 83 18 131/80 98 Room Air 01/19/17 16:00 88 01/19/17 12:00 98.0 90 19 137/72 99 Room Air 01/19/17 12:00 93 01/19/17 08:00 97.8 83 18 131/80 98 Room Air 01/19/17 08:00 79 Laboratory Tests 01/19/17 12:30: Stool Occult Blood [Pending] 01/19/17 19:45: Reticulocyte Count 0.7, Fibrinogen 903H, Total Bilirubin 0.7, Lactate Dehydrogenase 159 01/20/17 03:30: Total Bilirubin 0.5, White Blood Count 5.7, Red Blood Count 2.29L, Hemoglobin 7.2L, Hematocrit 21.1L, Mean Corpuscular Volume 92, Mean Corpuscular Hemoglobin 31.3H, Mean Corpuscular Hemoglobin Concent 34.0, Red Cell Distribution Width 16.6H, Platelet Count 163, Mean Platelet Volume 6.1L, Neutrophils (%) (Auto) , Lymphocytes (%) (Auto) , Monocytes (%) (Auto) , Eosinophils (%) (Auto) , Basophils (%) (Auto) , Prothrombin Time 11.1, Prothromb Time International Ratio 1.1, Sodium Level 135L, Potassium Level 3.8, Chloride Level 106, Carbon Dioxide Level 22, Anion Gap 7, Blood Urea Nitrogen 21H, Creatinine 1.3, Estimat Glomerular Filtration Rate , Glucose Level 136H, Hemoglobin A1c 6.5H, Uric Acid 2.7, Calcium Level 8.6, Phosphorus Level 2.1L, Magnesium Level 1.6L, Iron Level [Pending], Unsaturated Iron Binding [Pending], Ferritin 1264H, Aspartate Amino Transf (AST/SGOT) 28, Alanine Aminotransferase (ALT/SGPT) 19, Alkaline Phosphatase 106, C-Reactive Protein, Quantitative 36.2H, Pro-B-Type Natriuretic Peptide 3265H, Total Protein 7.3, Albumin 1.8L, Globulin 5.5, Albumin/Globulin Ratio 0.3L, Vitamin B12 Level [Pending], Folate [Pending], Thyroid Stimulating Hormone (TSH) 1.795 01/20/17 05:00: Stool Occult Blood [Pending] Height (Feet): 5 Height (Inches): 6.00 Weight (Pounds): 135 General Appearance: no apparent distress EENT: normal ENT inspection Neck: supple Cardiovascular: normal rate Respiratory/Chest: decreased breath sounds Abdomen: normal bowel sounds, non tender, soft Extremities: non-tender EMILIA PRASAD Jan 20, 2017 05:44
[2017-01-20 05:49] LABS: FOLIC ACID 14.6 NG/ML (3.1-17.5); IRON 27 ug/dL (50-175); TOTAL IRON BINDING CAPACITY 143 ug/dL (250-450)
[2017-01-20 08:00] VITALS: BP 143/82
--- NOTE | 2017-01-20 08:19 | Infectious Diseases Prog Note ---
Assessment/Plan Assessment/Plan A. Sepsis, SIRS Severe anemia Multiple myeloma DM P: Continue Ceftriaxone & Zithromax Discontinue Bauer after collection of 24hrs urine Subjective ROS Limited/Unobtainable: No Constitutional: Reports: no symptoms Respiratory: Reports: no symptoms Cardiovascular: Reports: no symptoms Gastrointestinal/Abdominal: Reports: no symptoms Genitourinary: Reports: other - discomfort with Bauer catheter Allergies: Coded Allergies: No Known Allergies (Unverified , 01/18/17) Objective Vital Signs Last 24 Hour Vital Signs Date Time Temp Pulse Resp B/P (MAP) Pulse Ox O2 Delivery O2 Flow Rate FiO2 01/20/17 08:00 97.5 91 18 143/82 97 Room Air 01/20/17 04:00 97.5 81 16 136/66 100 Room Air 81 01/20/17 04:00 81 01/20/17 00:00 97.3 90 20 123/58 100 Room Air 90 01/20/17 00:00 94 01/19/17 20:00 98.0 105 19 130/71 100 Room Air 105 01/19/17 20:00 109 01/19/17 16:00 97.8 83 18 131/80 98 Room Air 01/19/17 16:00 88 01/19/17 12:00 98.0 90 19 137/72 99 Room Air 01/19/17 12:00 93 Height (Feet): 5 Height (Inches): 6.00 Weight (Pounds): 135 General Appearance: no acute distress HEENT: mucous membranes moist Respiratory/Chest: lungs clear Cardiovascular: normal rate Abdomen: soft, non tender Genitourinary: other - Bauer catheter Neurologic/Psychiatric: alert, oriented x 3, responsive Microbiology Date/Time Source Procedure Growth Status 01/18/17 19:45 Blood Blood Culture - Preliminary NO GROWTH AFTER 24 HOURS Resulted 01/18/17 19:30 Blood Blood Culture - Preliminary NO GROWTH AFTER 24 HOURS Resulted Laboratory Tests Test 01/19/17 12:30 01/19/17 19:45 01/20/17 03:30 01/20/17 05:00 Stool Occult Blood Pending Pending Reticulocyte Count 0.7 % (0.0-2.0) Fibrinogen 903 mg/dL (200-400) H Total Bilirubin 0.7 MG/DL (0.2-1.0) 0.5 MG/DL (0.2-1.0) Lactate Dehydrogenase 159 U/L (81-234) White Blood Count 5.7 K/UL (4.8-10.8) Red Blood Count 2.29 M/UL (4.70-6.10) L Hemoglobin 7.2 G/DL (14.2-18.0) L Hematocrit 21.1 % (42.0-52.0) L Mean Corpuscular Volume 92 FL (80-99) Mean Corpuscular Hemoglobin 31.3 PG (27.0-31.0) H Mean Corpuscular Hemoglobin Concent 34.0 G/DL (32.0-36.0) Red Cell Distribution Width 16.6 % (11.6-14.8) H Platelet Count 163 K/UL (150-450) Mean Platelet Volume 6.1 FL (6.5-10.1) L Neutrophils (%) (Auto) % (45.0-75.0) Lymphocytes (%) (Auto) % (20.0-45.0) Monocytes (%) (Auto) % (1.0-10.0) Eosinophils (%) (Auto) % (0.0-3.0) Basophils (%) (Auto) % (0.0-2.0) Prothrombin Time 11.1 SEC (9.30-11.50) Prothromb Time International Ratio 1.1 (0.9-1.1) Sodium Level 135 MMOL/L (136-145) L Potassium Level 3.8 MMOL/L (3.5-5.1) Chloride Level 106 MMOL/L (98-107) Carbon Dioxide Level 22 MMOL/L (21-32) Anion Gap 7 mmol/L (5-15) Blood Urea Nitrogen 21 mg/dL (7-18) H Creatinine 1.3 MG/DL (0.55-1.30) Estimat Glomerular Filtration Rate mL/min (>60) Glucose Level 136 MG/DL (74-106) H Hemoglobin A1c 6.5 % (4.3-6.0) H Uric Acid 2.7 MG/DL (2.6-7.2) Calcium Level 8.6 MG/DL (8.5-10.1) Phosphorus Level 2.1 MG/DL (2.5-4.9) L Magnesium Level 1.6 MG/DL (1.8-2.4) L Iron Level 27 ug/dL (50-175) L Total Iron Binding Capacity 143 ug/dL (250-450) L Percent Iron Saturation 19 % (15-50) Unsaturated Iron Binding 116 ug/dL (112-346) Ferritin 1264 NG/ML (8-388) H Aspartate Amino Transf (AST/SGOT) 28 U/L (15-37) Alanine Aminotransferase (ALT/SGPT) 19 U/L (12-78) Alkaline Phosphatase 106 U/L (46-116) C-Reactive Protein, Quantitative 36.2 mg/dL (0.00-0.90) H Pro-B-Type Natriuretic Peptide 3265 pg/mL (0-125) H Total Protein 7.3 G/DL (6.4-8.2) Albumin 1.8 G/DL (3.4-5.0) L Globulin 5.5 g/dL Albumin/Globulin Ratio 0.3 (1.0-2.7) L Vitamin B12 Level 758 PG/ML (193-986) Folate 14.6 NG/ML (3.1-17.5) Thyroid Stimulating Hormone (TSH) 1.795 uiU/mL (0.358-3.740) Current Medications Medications (Trade) Dose Ordered Sig/Ashli Route PRN Reason Start Time Stop Time Status Last Admin Dose Admin Acetaminophen (Tylenol) 650 mg Q4H PRN ORAL Mild Pain/Temp > 100.5 01/19/17 00:00 02/18/17 00:00 01/19/17 23:47 Azithromycin (Zithromax) 250 mg DAILY ORAL 01/20/17 09:00 01/23/17 09:15 Ceftriaxone Sodium 1 gm/ Dextrose 55 ml @ 110 mls/hr Q24H IVPB 01/19/17 11:00 01/26/17 10:59 01/19/17 11:28 Pantoprazole (Protonix) 40 mg DAILY ORAL 01/20/17 09:00 02/19/17 08:59 Sodium Chloride 1,000 ml @ 50 mls/hr Q20H IV 01/19/17 13:00 02/18/17 12:59 01/19/17 13:50 CHINEDU OSORIO Jan 20, 2017 08:19
[2017-01-20] MEDS: Azithromycin 250mg tab ORAL SCH (08:33)
--- NOTE | 2017-01-20 09:25 | Nephrology Progress Note ---
Assessment/Plan Problem List: (1) Renal insufficiency (2) Anemia (3) Multiple myeloma (4) DM (diabetes mellitus) (5) Altered level of consciousness Assessment Severe Anemia Proteinuria HypoAlbuminemia Low K Low Na MM DMII Plan NS- K supplement- 24 H urine Protein monitor renal parameters- per consultants Subjective ROS Limited/Unobtainable: No Constitutional: Reports: malaise Objective Objective Last 24 Hour Vital Signs Date Time Temp Pulse Resp B/P (MAP) Pulse Ox O2 Delivery O2 Flow Rate FiO2 01/20/17 08:00 97.5 91 18 143/82 97 Room Air 01/20/17 04:00 97.5 81 16 136/66 100 Room Air 81 01/20/17 04:00 81 01/20/17 00:00 97.3 90 20 123/58 100 Room Air 90 01/20/17 00:00 94 01/19/17 20:00 98.0 105 19 130/71 100 Room Air 105 01/19/17 20:00 109 01/19/17 16:00 97.8 83 18 131/80 98 Room Air 01/19/17 16:00 88 01/19/17 12:00 98.0 90 19 137/72 99 Room Air 01/19/17 12:00 93 Intake and Output 01/20/17 01/21/17 19:00 07:00 Intake Total 100 ml Balance 100 ml IV Total 100 ml # Bowel Movements 1 Laboratory Tests 01/19/17 12:30: Stool Occult Blood [Pending] 01/19/17 19:45: Reticulocyte Count 0.7, Fibrinogen 903H, Total Bilirubin 0.7, Lactate Dehydrogenase 159 01/20/17 03:30: Total Bilirubin 0.5, White Blood Count 5.7, Red Blood Count 2.29L, Hemoglobin 7.2L, Hematocrit 21.1L, Mean Corpuscular Volume 92, Mean Corpuscular Hemoglobin 31.3H, Mean Corpuscular Hemoglobin Concent 34.0, Red Cell Distribution Width 16.6H, Platelet Count 163, Mean Platelet Volume 6.1L, Neutrophils (%) (Auto) , Lymphocytes (%) (Auto) , Monocytes (%) (Auto) , Eosinophils (%) (Auto) , Basophils (%) (Auto) , Prothrombin Time 11.1, Prothromb Time International Ratio 1.1, Sodium Level 135L, Potassium Level 3.8, Chloride Level 106, Carbon Dioxide Level 22, Anion Gap 7, Blood Urea Nitrogen 21H, Creatinine 1.3, Estimat Glomerular Filtration Rate , Glucose Level 136H, Hemoglobin A1c 6.5H, Uric Acid 2.7, Calcium Level 8.6, Phosphorus Level 2.1L, Magnesium Level 1.6L, Iron Level 27L, Total Iron Binding Capacity 143L, Percent Iron Saturation 19, Unsaturated Iron Binding 116, Ferritin 1264H, Aspartate Amino Transf (AST/SGOT) 28, Alanine Aminotransferase (ALT/SGPT) 19, Alkaline Phosphatase 106, C-Reactive Protein, Quantitative 36.2H, Pro-B-Type Natriuretic Peptide 3265H, Total Protein 7.3, Albumin 1.8L, Globulin 5.5, Albumin/Globulin Ratio 0.3L, Vitamin B12 Level 758, Folate 14.6, Thyroid Stimulating Hormone (TSH) 1.795 01/20/17 05:00: Stool Occult Blood [Pending] Height (Feet): 5 Height (Inches): 6.00 Weight (Pounds): 135 General Appearance: no apparent distress Cardiovascular: normal rate Respiratory/Chest: decreased breath sounds Abdomen: soft SHWETHA GAMBOA Jan 20, 2017 09:25
[2017-01-20] MEDS ORDERED: Potassium Phosphate 20 MM in NS 275 ML IV ONE (09:30)
--- NOTE | 2017-01-20 10:06 | Diagnostic Imaging Report ---
Indication: SOB Technique: XRAY CHEST 1 V. Comparison: 01/18/17 Findings: The cardiomediastinal silhouette is unchanged. No new infiltrates are identified. Impression: No significant change from prior examination.
--- NOTE | 2017-01-20 10:53 | Pulmonology Progress Note ---
Assessment/Plan Assessment/Plan 1. Low-grade fever, resolved 2. Multiple myeloma. 3. Bibasilar atelectasis, no pneumonia. 4. Diabetes. no active pulmonary problems will see prn thanks Subjective Respiratory: Denies: dry cough, shortness of breath Allergies: Coded Allergies: No Known Allergies (Unverified , 01/18/17) Objective Last 24 Hour Vital Signs Date Time Temp Pulse Resp B/P (MAP) Pulse Ox O2 Delivery O2 Flow Rate FiO2 01/20/17 08:00 97.5 91 18 143/82 97 Room Air 01/20/17 08:00 103 01/20/17 04:00 97.5 81 16 136/66 100 Room Air 81 01/20/17 04:00 81 01/20/17 00:00 97.3 90 20 123/58 100 Room Air 90 01/20/17 00:00 94 01/19/17 20:00 98.0 105 19 130/71 100 Room Air 105 01/19/17 20:00 109 01/19/17 16:00 97.8 83 18 131/80 98 Room Air 01/19/17 16:00 88 01/19/17 12:00 98.0 90 19 137/72 99 Room Air 01/19/17 12:00 93 Intake and Output 01/20/17 01/21/17 19:00 07:00 Intake Total 100 ml Balance 100 ml IV Total 100 ml # Bowel Movements 1 General Appearance: no acute distress Respiratory/Chest: lungs clear Cardiovascular: normal rate Microbiology Date/Time Source Procedure Growth Status 01/18/17 19:45 Blood Blood Culture - Preliminary NO GROWTH AFTER 24 HOURS Resulted 01/18/17 19:30 Blood Blood Culture - Preliminary NO GROWTH AFTER 24 HOURS Resulted Laboratory Tests 01/19/17 12:30: Stool Occult Blood Positive 01/19/17 19:45: Reticulocyte Count 0.7, Fibrinogen 903H, Total Bilirubin 0.7, Lactate Dehydrogenase 159 01/20/17 03:30: Total Bilirubin 0.5, White Blood Count 5.7, Red Blood Count 2.29L, Hemoglobin 7.2L, Hematocrit 21.1L, Mean Corpuscular Volume 92, Mean Corpuscular Hemoglobin 31.3H, Mean Corpuscular Hemoglobin Concent 34.0, Red Cell Distribution Width 16.6H, Platelet Count 163, Mean Platelet Volume 6.1L, Neutrophils (%) (Auto) , Lymphocytes (%) (Auto) , Monocytes (%) (Auto) , Eosinophils (%) (Auto) , Basophils (%) (Auto) , Prothrombin Time 11.1, Prothromb Time International Ratio 1.1, Sodium Level 135L, Potassium Level 3.8, Chloride Level 106, Carbon Dioxide Level 22, Anion Gap 7, Blood Urea Nitrogen 21H, Creatinine 1.3, Estimat Glomerular Filtration Rate , Glucose Level 136H, Hemoglobin A1c 6.5H, Uric Acid 2.7, Calcium Level 8.6, Phosphorus Level 2.1L, Magnesium Level 1.6L, Iron Level 27L, Total Iron Binding Capacity 143L, Percent Iron Saturation 19, Unsaturated Iron Binding 116, Ferritin 1264H, Aspartate Amino Transf (AST/SGOT) 28, Alanine Aminotransferase (ALT/SGPT) 19, Alkaline Phosphatase 106, C-Reactive Protein, Quantitative 36.2H, Pro-B-Type Natriuretic Peptide 3265H, Total Protein 7.3, Albumin 1.8L, Globulin 5.5, Albumin/Globulin Ratio 0.3L, Vitamin B12 Level 758, Folate 14.6, Thyroid Stimulating Hormone (TSH) 1.795 01/20/17 05:00: Stool Occult Blood Positive Current Medications Medications (Trade) Dose Ordered Sig/Ashli Route PRN Reason Start Time Stop Time Status Last Admin Dose Admin Acetaminophen (Tylenol) 650 mg Q4H PRN ORAL Mild Pain/Temp > 100.5 01/19/17 00:00 02/18/17 00:00 01/19/17 23:47 Azithromycin (Zithromax) 250 mg DAILY ORAL 01/20/17 09:00 01/23/17 09:15 01/20/17 08:33 Ceftriaxone Sodium 1 gm/ Dextrose 55 ml @ 110 mls/hr Q24H IVPB 01/19/17 11:00 01/26/17 10:59 01/19/17 11:28 Pantoprazole (Protonix) 40 mg DAILY ORAL 01/20/17 09:00 02/19/17 08:59 01/20/17 08:33 Potassium Phosphate 20 mm/ Sodium Chloride 281.6667 ml @ 46.944 m... ONCE ONCE IV 01/20/17 09:30 01/20/17 15:29 Sodium Chloride 1,000 ml @ 50 mls/hr Q20H IV 01/19/17 13:00 02/18/17 12:59 01/20/17 08:33 CHLOE BROWN Jan 20, 2017 10:53
[2017-01-20] MEDS: cefTRIAXone 1 GM in D5W 55 ML IVPB SCH (11:00)
[2017-01-20 12:00] VITALS: BP 134/77
--- NOTE | 2017-01-20 13:08 | General Progress Note ---
Assessment/Plan Problem List: (1) CHF (congestive heart failure) ICD Codes: I50.9 - Heart failure, unspecified SNOMED: 86431510 Qualifiers: Qualified Codes: I50.9 - Heart failure, unspecified (2) Anemia ICD Codes: D64.9 - Anemia, unspecified SNOMED: 772273260 Qualifiers: Qualified Codes: D64.9 - Anemia, unspecified (3) Multiple myeloma ICD Codes: C90.00 - Multiple myeloma not having achieved remission SNOMED: 605136394 (4) DM (diabetes mellitus) ICD Codes: E11.9 - Type 2 diabetes mellitus without complications SNOMED: 87359244 (5) Altered level of consciousness ICD Codes: R40.4 - Transient alteration of awareness SNOMED: 0901846 (6) Renal insufficiency ICD Codes: N28.9 - Disorder of kidney and ureter, unspecified SNOMED: 647821132, 687736806 Status: progressing Assessment/Plan afebrile dm severe anemia due to mm transfusion per heme/onc chf no sob reviewed chart and labs Subjective ROS Limited/Unobtainable: Yes Allergies: Coded Allergies: No Known Allergies (Unverified , 01/18/17) Objective Last 24 Hour Vital Signs Date Time Temp Pulse Resp B/P (MAP) Pulse Ox O2 Delivery O2 Flow Rate FiO2 01/20/17 12:00 97.8 89 18 134/77 97 Room Air 01/20/17 08:00 97.5 91 18 143/82 97 Room Air 01/20/17 08:00 103 01/20/17 04:00 97.5 81 16 136/66 100 Room Air 81 01/20/17 04:00 81 01/20/17 00:00 97.3 90 20 123/58 100 Room Air 90 01/20/17 00:00 94 01/19/17 20:00 98.0 105 19 130/71 100 Room Air 105 01/19/17 20:00 109 01/19/17 16:00 97.8 83 18 131/80 98 Room Air 01/19/17 16:00 88 Intake and Output 01/20/17 01/21/17 19:00 07:00 Intake Total 155 ml Balance 155 ml IV Total 155 ml # Bowel Movements 1 Laboratory Tests 01/19/17 19:45: Reticulocyte Count 0.7, Fibrinogen 903H, Total Bilirubin 0.7, Lactate Dehydrogenase 159 01/20/17 03:30: Total Bilirubin 0.5, White Blood Count 5.7, Red Blood Count 2.29L, Hemoglobin 7.2L, Hematocrit 21.1L, Mean Corpuscular Volume 92, Mean Corpuscular Hemoglobin 31.3H, Mean Corpuscular Hemoglobin Concent 34.0, Red Cell Distribution Width 16.6H, Platelet Count 163, Mean Platelet Volume 6.1L, Neutrophils (%) (Auto) , Lymphocytes (%) (Auto) , Monocytes (%) (Auto) , Eosinophils (%) (Auto) , Basophils (%) (Auto) , Prothrombin Time 11.1, Prothromb Time International Ratio 1.1, Sodium Level 135L, Potassium Level 3.8, Chloride Level 106, Carbon Dioxide Level 22, Anion Gap 7, Blood Urea Nitrogen 21H, Creatinine 1.3, Estimat Glomerular Filtration Rate , Glucose Level 136H, Hemoglobin A1c 6.5H, Uric Acid 2.7, Calcium Level 8.6, Phosphorus Level 2.1L, Magnesium Level 1.6L, Iron Level 27L, Total Iron Binding Capacity 143L, Percent Iron Saturation 19, Unsaturated Iron Binding 116, Ferritin 1264H, Aspartate Amino Transf (AST/SGOT) 28, Alanine Aminotransferase (ALT/SGPT) 19, Alkaline Phosphatase 106, C-Reactive Protein, Quantitative 36.2H, Pro-B-Type Natriuretic Peptide 3265H, Total Protein 7.3, Albumin 1.8L, Globulin 5.5, Albumin/Globulin Ratio 0.3L, Vitamin B12 Level 758, Folate 14.6, Thyroid Stimulating Hormone (TSH) 1.795 01/20/17 05:00: Stool Occult Blood Positive 01/20/17 12:00: Urine Collection Time [Pending], Urine Total Volume [Pending], Urine Total Protein mg/dL [Pending], Urine Total Protein 24 Hour [Pending] Height (Feet): 5 Height (Inches): 6.00 Weight (Pounds): 135 Respiratory/Chest: lungs clear Abdomen: soft Parth Gallo MD Jan 20, 2017 13:08
[2017-01-20 16:00] VITALS: BP 127/70
[2017-01-20 20:00] VITALS: BP 118/69
--- NOTE | 2017-01-20 23:59 | Cardiology Progress Note ---
Assessment/Plan Assessment/Plan 1. Altered level of consciousness likely due to sepsis/febrile syndrome, appears to be doing better, echo reveals normal LV systolic function. 2. Sinus tachycardia, resolved. 3. DM 4. Moderate MR. Subjective Subjective Sinus rhythm at 87. Denies chest pain or SOB. Objective Last 24 Hour Vital Signs Date Time Temp Pulse Resp B/P (MAP) Pulse Ox O2 Delivery O2 Flow Rate FiO2 01/20/17 20:00 98.4 85 18 118/69 97 Room Air 01/20/17 20:00 87 01/20/17 16:00 97.7 88 18 127/70 97 Room Air 01/20/17 16:00 88 01/20/17 12:00 97.8 89 18 134/77 97 Room Air 01/20/17 12:00 87 01/20/17 08:00 97.5 91 18 143/82 97 Room Air 01/20/17 08:00 103 01/20/17 04:00 97.5 81 16 136/66 100 Room Air 81 01/20/17 04:00 81 01/20/17 00:00 97.3 90 20 123/58 100 Room Air 90 01/20/17 00:00 94 Intake and Output 01/20/17 01/21/17 19:00 07:00 Intake Total 1536.6667 ml 200 ml Output Total 1300 ml Balance 236.6667 ml 200 ml Intake Oral 800 ml IV Total 486.6667 ml 200 ml Blood Product 250 ml Output Urine Total 1300 ml # Bowel Movements 2 2D Echo: LVEF 55%, Mild LVH, LAE, Mod AR/MR, Grade I LVDD Laboratory Tests Test 01/20/17 03:30 01/20/17 05:00 01/20/17 12:00 White Blood Count 5.7 K/UL (4.8-10.8) Red Blood Count 2.29 M/UL (4.70-6.10) L Hemoglobin 7.2 G/DL (14.2-18.0) L Hematocrit 21.1 % (42.0-52.0) L Mean Corpuscular Volume 92 FL (80-99) Mean Corpuscular Hemoglobin 31.3 PG (27.0-31.0) H Mean Corpuscular Hemoglobin Concent 34.0 G/DL (32.0-36.0) Red Cell Distribution Width 16.6 % (11.6-14.8) H Platelet Count 163 K/UL (150-450) Mean Platelet Volume 6.1 FL (6.5-10.1) L Neutrophils (%) (Auto) % (45.0-75.0) Lymphocytes (%) (Auto) % (20.0-45.0) Monocytes (%) (Auto) % (1.0-10.0) Eosinophils (%) (Auto) % (0.0-3.0) Basophils (%) (Auto) % (0.0-2.0) Prothrombin Time 11.1 SEC (9.30-11.50) Prothromb Time International Ratio 1.1 (0.9-1.1) Sodium Level 135 MMOL/L (136-145) L Potassium Level 3.8 MMOL/L (3.5-5.1) Chloride Level 106 MMOL/L (98-107) Carbon Dioxide Level 22 MMOL/L (21-32) Anion Gap 7 mmol/L (5-15) Blood Urea Nitrogen 21 mg/dL (7-18) H Creatinine 1.3 MG/DL (0.55-1.30) Estimat Glomerular Filtration Rate mL/min (>60) Glucose Level 136 MG/DL (74-106) H Hemoglobin A1c 6.5 % (4.3-6.0) H Uric Acid 2.7 MG/DL (2.6-7.2) Calcium Level 8.6 MG/DL (8.5-10.1) Phosphorus Level 2.1 MG/DL (2.5-4.9) L Magnesium Level 1.6 MG/DL (1.8-2.4) L Iron Level 27 ug/dL (50-175) L Total Iron Binding Capacity 143 ug/dL (250-450) L Percent Iron Saturation 19 % (15-50) Unsaturated Iron Binding 116 ug/dL (112-346) Ferritin 1264 NG/ML (8-388) H Total Bilirubin 0.5 MG/DL (0.2-1.0) Aspartate Amino Transf (AST/SGOT) 28 U/L (15-37) Alanine Aminotransferase (ALT/SGPT) 19 U/L (12-78) Alkaline Phosphatase 106 U/L (46-116) C-Reactive Protein, Quantitative 36.2 mg/dL (0.00-0.90) H Pro-B-Type Natriuretic Peptide 3265 pg/mL (0-125) H Total Protein 7.3 G/DL (6.4-8.2) Albumin 1.8 G/DL (3.4-5.0) L Globulin 5.5 g/dL Albumin/Globulin Ratio 0.3 (1.0-2.7) L Vitamin B12 Level 758 PG/ML (193-986) Folate 14.6 NG/ML (3.1-17.5) Thyroid Stimulating Hormone (TSH) 1.795 uiU/mL (0.358-3.740) Stool Occult Blood Positive (NEGATIVE) Urine Collection Time 24 HRS Urine Total Volume 1300 ML Urine Total Protein mg/dL 125 mg/dL Urine Total Protein 24 Hour 1625.0 mg/24hr (< 150) H Microbiology Date/Time Source Procedure Growth Status 01/18/17 19:45 Blood Blood Culture - Preliminary NO GROWTH AFTER 24 HOURS Resulted 01/18/17 19:30 Blood Blood Culture - Preliminary NO GROWTH AFTER 24 HOURS Resulted Objective General Appearance: no apparent distress, alert, GCS 15, non-toxic HEENT: normocephalic, atraumatic, bilateral eye PERRL, EOMI Neck: Negative JVD, carotid upstroke 2+ with no bruit. Respiratory: normal breath sounds, speaking full sentences Cardiovascular: regular rate, rhythm, normal S1S2, no murmurs, gallops or rubs. Gastrointestinal: normal bowel sounds, non tender, soft, non-distended, no guarding, no rebound Genitourinary: normal inspection, no CVA tenderness Musculoskeletal: No edema, clubbing or cyanosis. SILVA VALENZUELA Jan 20, 2017 23:59
[2017-01-21] VITALS: BP 127/66
[2017-01-21 03:57] VITALS: BP 118/67
[2017-01-21 05:25] LABS: BASOPHILS % (AUTO) 0.4 % (0.0-2.0); EOSINOPHILS % (AUTO) 1.9 % (0.0-3.0); LYMPHOCYTES % (AUTO) 13.4 % (20.0-45.0); MEAN CORPUSCULAR HEMOGLOBIN 31.8 PG (27.0-31.0); MEAN CORPUSCULAR HGB CONC 34.9 G/DL (32.0-36.0); MEAN CORPUSCULAR VOLUME 91 FL (80-99); MEAN PLATELET VOLUME 6.1 FL (6.5-10.1); MONOCYTES % (AUTO) 9.9 % (1.0-10.0); NEUTROPHILS % (AUTO) 74.4 % (45.0-75.0); PLATELET COUNT 178 K/UL (150-450); RED BLOOD COUNT 2.74 M/UL (4.70-6.10); RED CELL DISTRIBUTION WIDTH 15.6 % (11.6-14.8); WHITE BLOOD COUNT 5.1 K/UL (4.8-10.8)
[2017-01-21 05:49] LABS: ANION GAP 9 mmol/L (5-15); CALCIUM 8.5 MG/DL (8.5-10.1); CARBON DIOXIDE 21 MMOL/L (21-32); CHLORIDE 106 MMOL/L (98-107); CREATININE 1.2 MG/DL (0.55-1.30); POTASSIUM 3.5 MMOL/L (3.5-5.1); SODIUM 136 MMOL/L (136-145)
--- NOTE | 2017-01-21 07:10 | General Progress Note ---
Assessment/Plan Problem List: (1) DM (diabetes mellitus) ICD Codes: E11.9 - Type 2 diabetes mellitus without complications SNOMED: 03503901 (2) Anemia ICD Codes: D64.9 - Anemia, unspecified SNOMED: 065617143 Qualifiers: Qualified Codes: D64.9 - Anemia, unspecified (3) Altered level of consciousness ICD Codes: R40.4 - Transient alteration of awareness SNOMED: 2913357 (4) Multiple myeloma ICD Codes: C90.00 - Multiple myeloma not having achieved remission SNOMED: 248567055 Assessment/Plan fu stool ob>>> + x2>> plan EGd and colonoscopy on Tuesday fu CEA monitoe H&H GI procedures on hold abd CT ordered>>> pending Subjective ROS Limited/Unobtainable: Yes Allergies: Coded Allergies: No Known Allergies (Unverified , 01/18/17) Subjective no event over night Objective Last 24 Hour Vital Signs Date Time Temp Pulse Resp B/P (MAP) Pulse Ox O2 Delivery O2 Flow Rate FiO2 01/21/17 04:34 84 01/21/17 03:57 97.5 82 20 118/67 100 Room Air 82 01/21/17 00:00 98.2 82 17 127/66 97 Room Air 01/21/17 00:00 84 01/20/17 20:00 98.4 85 18 118/69 97 Room Air 01/20/17 20:00 87 01/20/17 16:00 97.7 88 18 127/70 97 Room Air 01/20/17 16:00 88 01/20/17 12:00 97.8 89 18 134/77 97 Room Air 01/20/17 12:00 87 01/20/17 08:00 97.5 91 18 143/82 97 Room Air 01/20/17 08:00 103 Laboratory Tests 01/20/17 12:00: Urine Collection Time 24, Urine Total Volume 1300, Urine Total Protein mg/dL 125 , Urine Total Protein 24 Hour 1625.0H 01/21/17 05:05: White Blood Count 5.1, Red Blood Count 2.74L, Hemoglobin 8.7L, Hematocrit 25.0L , Mean Corpuscular Volume 91, Mean Corpuscular Hemoglobin 31.8H, Mean Corpuscular Hemoglobin Concent 34.9, Red Cell Distribution Width 15.6H, Platelet Count 178, Mean Platelet Volume 6.1L, Neutrophils (%) (Auto) 74.4, Lymphocytes (%) (Auto) 13.4L, Monocytes (%) (Auto) 9.9, Eosinophils (%) (Auto) 1.9, Basophils (%) (Auto) 0.4, Sodium Level 136, Potassium Level 3.5, Chloride Level 106, Carbon Dioxide Level 21, Anion Gap 9, Blood Urea Nitrogen 16, Creatinine 1.2, Estimat Glomerular Filtration Rate , Glucose Level 97, Calcium Level 8.5 Height (Feet): 5 Height (Inches): 6.00 Weight (Pounds): 135 General Appearance: alert EENT: normal ENT inspection Neck: supple Cardiovascular: normal rate Respiratory/Chest: lungs clear Abdomen: normal bowel sounds, non tender, soft Extremities: non-tender EMILIA PRASAD Jan 21, 2017 07:10
[2017-01-21 08:00] VITALS: BP 126/72
--- NOTE | 2017-01-21 09:21 | Nephrology Progress Note ---
Assessment/Plan Problem List: (1) Renal insufficiency (2) Anemia (3) Multiple myeloma (4) DM (diabetes mellitus) (5) Altered level of consciousness Assessment Severe Anemia, improved Proteinuria HypoAlbuminemia Low K Low Na MM DMII Plan NS- medium CHO diet K supplement- 24 H urine Protein monitor renal parameters- per consultants Subjective ROS Limited/Unobtainable: No Constitutional: Reports: malaise Objective Objective Last 24 Hour Vital Signs Date Time Temp Pulse Resp B/P (MAP) Pulse Ox O2 Delivery O2 Flow Rate FiO2 01/21/17 04:34 84 01/21/17 03:57 97.5 82 20 118/67 100 Room Air 82 01/21/17 00:00 98.2 82 17 127/66 97 Room Air 01/21/17 00:00 84 01/20/17 20:00 98.4 85 18 118/69 97 Room Air 01/20/17 20:00 87 01/20/17 16:00 97.7 88 18 127/70 97 Room Air 01/20/17 16:00 88 01/20/17 12:00 97.8 89 18 134/77 97 Room Air 01/20/17 12:00 87 Laboratory Tests 01/20/17 12:00: Urine Collection Time 24, Urine Total Volume 1300, Urine Total Protein mg/dL 125 , Urine Total Protein 24 Hour 1625.0H 01/21/17 05:05: White Blood Count 5.1, Red Blood Count 2.74L, Hemoglobin 8.7L, Hematocrit 25.0L , Mean Corpuscular Volume 91, Mean Corpuscular Hemoglobin 31.8H, Mean Corpuscular Hemoglobin Concent 34.9, Red Cell Distribution Width 15.6H, Platelet Count 178, Mean Platelet Volume 6.1L, Neutrophils (%) (Auto) 74.4, Lymphocytes (%) (Auto) 13.4L, Monocytes (%) (Auto) 9.9, Eosinophils (%) (Auto) 1.9, Basophils (%) (Auto) 0.4, Sodium Level 136, Potassium Level 3.5, Chloride Level 106, Carbon Dioxide Level 21, Anion Gap 9, Blood Urea Nitrogen 16, Creatinine 1.2, Estimat Glomerular Filtration Rate , Glucose Level 97, Calcium Level 8.5 Height (Feet): 5 Height (Inches): 6.00 Weight (Pounds): 135 General Appearance: no apparent distress Objective PE not changed SHWETHA GAMBOA Jan 21, 2017 09:21
[2017-01-21] MEDS ORDERED: NS 500ML ONE (10:10)
[2017-01-21] MEDS ORDERED: Tubing IV Secondary IV ONE (10:10)
[2017-01-21] MEDS ORDERED: Tubing IV Blood Pump IV ONE (10:10)
[2017-01-21] MEDS: cefTRIAXone 1 GM in D5W 55 ML IVPB SCH (10:30)
[2017-01-21] MEDS: Azithromycin 250mg tab ORAL SCH (10:30)
[2017-01-21 12:00] VITALS: BP 131/69
--- NOTE | 2017-01-21 12:10 | Diagnostic Imaging Report ---
Clinical Indication: Abdominal distention and anemia, history of multiple myeloma Technique: Patient given oral contrast. IV administration nonionic contrast. Venous phase spiral acquisition obtained through the abdomen and pelvis. Multiplanar reconstructions were generated. Total dose length product 602 mGycm. CTDIvol(s) 13 mGy. Dose reduction achieved using automated exposure control Comparison: None Findings: There is an indirect left inguinal hernia which contains a loop of the sigmoid colon. This does not appear to be obstructive or strangulated. There is a direct right inguinal hernia which contains a small portion of the bladder. There is colonic diverticulosis. No evidence of acute diverticulitis. There is a large polypoid filling defect within the distal transverse colon which measures 4.5 x 3 cm. Appearance is not characteristic of stool. The appendix is normal. There is no small bowel distention. Contrast is seen throughout the entirety of the small bowel and colon indicating lack of obstructive pathology. No small bowel wall thickening. No free or loculated intraperitoneal air or fluid is evident. The liver is minimally hypoattenuating. There is a 1.5 cm cyst in segment 2B. The gallbladder demonstrates gallstones. Bile ducts are slightly ectatic. The pancreas is atrophic. The spleen, adrenals are unremarkable. There are bilateral renal cysts, largest in the right kidney measuring 5.1 cm diameter. No renal or ureteral calculi, hydronephrosis, or hydroureter. There is abnormal axis deviation of the right kidney. No retroperitoneal or mesenteric mass or adenopathy. The prostate is not particularly enlarged, measuring 3.6 x 3.6 cm, although there is slight stranding of the periprostatic fat. The lung bases demonstrate some posterior cystic change on the right, mild honeycombing and dependent atelectasis. The bones demonstrate degenerative spondylosis changes. There are compression fracture deformities of T9, T10, T12, L1, and L3. The lumbar spine demonstrates multiple osteolytic lesions as well as osteoblastic areas. A large osteolytic lesion is seen within the right iliac bone medially. This measures approximately 4.6 cm in diameter. This destroys the medial wall adjacent to the sacroiliac joint. Other osteolytic lesions are seen within the pelvis as well. There are multiple healed right rib fractures which may be pathologic fractures. There may be some healed left rib fractures as well. There is an osteosclerotic/osteolytic lesion of the visualized portion of the left scapula. Impression: Large filling defect within the distal transverse colon. While possibly representing stool, this is unusually homogeneous in appearance for stool and is therefore concerning for neoplasm. Consider endoscopy for further evaluation Indirect left inguinal hernia containing a loop of the sigmoid colon. This does not appear to be obstructive or strangulated Direct right inguinal hernia containing a small portion of the bladder Colonic diverticulosis Cholelithiasis Mild fatty liver Diffuse osseous abnormalities, as described, with mixed osteolytic and osteosclerotic, mostly lytic, areas. This is consistent with stated clinical history of multiple myeloma Multiple presumed pathologic compression fracture deformities of the lower thoracic and lumbar spine, age indeterminate Multiple healed right and possibly left rib fractures Pulmonary basilar cystic change, honeycombing, and dependent atelectasis Findings discussed by phone with Dr. Heller at the time of interpretation The CT scanner at [facility] is accredited by the [employer] and the scans are performed using protocols designed to limit radiation exposure to as low as reasonably achievable to attain images of sufficient resolution adequate for diagnostic evaluation.
--- NOTE | 2017-01-21 12:29 | Infectious Diseases Prog Note ---
Assessment/Plan Assessment/Plan A. Sepsis, SIRS Severe anemia Multiple myeloma DM Cholelithiasis Diverticulosis Fatty liver ? Transverse colon filling defect P: Continue Ceftriaxone & Zithromax Subjective ROS Limited/Unobtainable: No HEENT: Reports: no symptoms Respiratory: Reports: no symptoms Cardiovascular: Reports: no symptoms Gastrointestinal/Abdominal: Reports: diarrhea, other - after taking contrast for CT scan Genitourinary: Reports: no symptoms Neurologic: Reports: no symptoms Allergies: Coded Allergies: No Known Allergies (Unverified , 01/18/17) Objective Vital Signs Last 24 Hour Vital Signs Date Time Temp Pulse Resp B/P (MAP) Pulse Ox O2 Delivery O2 Flow Rate FiO2 01/21/17 08:00 97.7 82 18 126/72 97 Room Air 01/21/17 07:35 82 01/21/17 04:34 84 01/21/17 03:57 97.5 82 20 118/67 100 Room Air 82 01/21/17 00:00 98.2 82 17 127/66 97 Room Air 01/21/17 00:00 84 01/20/17 20:00 98.4 85 18 118/69 97 Room Air 01/20/17 20:00 87 01/20/17 16:00 97.7 88 18 127/70 97 Room Air 01/20/17 16:00 88 Height (Feet): 5 Height (Inches): 6.00 Weight (Pounds): 135 General Appearance: no acute distress HEENT: mucous membranes moist Respiratory/Chest: lungs clear, other - Kyphosis Cardiovascular: normal rate Abdomen: soft, non tender Extremities: no edema Neurologic/Psychiatric: alert, oriented x 3, responsive Microbiology Date/Time Source Procedure Growth Status 01/18/17 19:45 Blood Blood Culture - Preliminary NO GROWTH AFTER 48 HOURS Resulted 01/18/17 19:30 Blood Blood Culture - Preliminary NO GROWTH AFTER 48 HOURS Resulted Laboratory Tests Test 01/21/17 05:05 White Blood Count 5.1 K/UL (4.8-10.8) Red Blood Count 2.74 M/UL (4.70-6.10) L Hemoglobin 8.7 G/DL (14.2-18.0) L Hematocrit 25.0 % (42.0-52.0) L Mean Corpuscular Volume 91 FL (80-99) Mean Corpuscular Hemoglobin 31.8 PG (27.0-31.0) H Mean Corpuscular Hemoglobin Concent 34.9 G/DL (32.0-36.0) Red Cell Distribution Width 15.6 % (11.6-14.8) H Platelet Count 178 K/UL (150-450) Mean Platelet Volume 6.1 FL (6.5-10.1) L Neutrophils (%) (Auto) 74.4 % (45.0-75.0) Lymphocytes (%) (Auto) 13.4 % (20.0-45.0) L Monocytes (%) (Auto) 9.9 % (1.0-10.0) Eosinophils (%) (Auto) 1.9 % (0.0-3.0) Basophils (%) (Auto) 0.4 % (0.0-2.0) Sodium Level 136 MMOL/L (136-145) Potassium Level 3.5 MMOL/L (3.5-5.1) Chloride Level 106 MMOL/L (98-107) Carbon Dioxide Level 21 MMOL/L (21-32) Anion Gap 9 mmol/L (5-15) Blood Urea Nitrogen 16 mg/dL (7-18) Creatinine 1.2 MG/DL (0.55-1.30) Estimat Glomerular Filtration Rate mL/min (>60) Glucose Level 97 MG/DL (74-106) Calcium Level 8.5 MG/DL (8.5-10.1) Current Medications Medications (Trade) Dose Ordered Sig/Ashli Route PRN Reason Start Time Stop Time Status Last Admin Dose Admin Acetaminophen (Tylenol) 650 mg Q4H PRN ORAL Mild Pain/Temp > 100.5 01/19/17 00:00 02/18/17 00:00 01/20/17 18:43 Azithromycin (Zithromax) 250 mg DAILY ORAL 01/20/17 09:00 01/23/17 09:15 01/21/17 10:30 Ceftriaxone Sodium 1 gm/ Dextrose 55 ml @ 110 mls/hr Q24H IVPB 01/19/17 11:00 01/26/17 10:59 01/21/17 10:30 Pantoprazole (Protonix) 40 mg DAILY ORAL 01/20/17 09:00 02/19/17 08:59 01/21/17 10:30 Sodium Chloride 1,000 ml @ 50 mls/hr Q20H IV 01/19/17 13:00 02/18/17 12:59 01/21/17 04:48 CHINEDU OSORIO Jan 21, 2017 12:29
--- NOTE | 2017-01-21 15:00 | Consultation ---
DATE OF CONSULTATION: 01/19/2017 HEMATOLOGY/ONCOLOGY CONSULTATION CONSULTING PHYSICIAN: Jose Luis Deluna M.D. REQUESTING PHYSICIAN: Parth Gallo M.D. REASON FOR CONSULTATION: Evaluation of acute anemia with hypochromic normocytic anemia. IDENTIFICATION DATA: Dear Dr. Gallo: The patient is a pleasant 81-year-old male with past medical history which is significant for CHF, renal insufficiency, multiple myeloma, anemia, altered mental status, at this time he presents to [facility] with potentially a GI bleed. Per EMS, he has had multiple falls, appears more lethargic than usual, noted to have a hemoglobin of 7.2, and now 6.5, transfused with blood. Hematology Service was consulted for further evaluation and treatment. PAST MEDICAL HISTORY: Multiple myeloma, hypertension, and hyperlipidemia. PAST SURGICAL HISTORY: None known. ALLERGIES: No known drug allergies. SOCIAL HISTORY: No alcohol, tobacco, or illicit drug use. REVIEW OF SYSTEMS: CONSTITUTIONAL: No fever, chills, or night sweats. SKIN: No rashes, bumps, or itching. HEENT: No headache, hearing or vision changes. BREASTS: No lumps, pain, or discharge. PULMONARY: No cough, sputum, or shortness of breath. GASTROINTESTINAL: No nausea, vomiting, or diarrhea. GENITOURINARY: No dysuria, frequency, or urgency. MUSCULOSKELETAL: No joint swelling, muscle pain, or trauma. PHYSICAL EXAMINATION: GENERAL: No acute distress. VITAL SIGNS: Reviewed. PULMONARY: Decreased breath sounds. CARDIOVASCULAR: Regular rate. No S3 or S4. ABDOMEN: Soft, nontender, and nondistended. EXTREMITIES: A 1+ edema. LABORATORY DATA: WBC 5.4, hemoglobin 6.5, hematocrit 20, and platelet count 150,000. BUN of 24 and creatinine 1.3. AST is and ALT . Troponin is 0.013. Occult blood is pending. ASSESSMENT AND RECOMMENDATIONS: 1. Multiple myeloma. The patient will need to see Outpatient Hematology for treatment. Currently on Revlimid, which can potentially cause myelosuppression, currently on 15 mg p.o. daily. 2. 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 Continue to closely monitor. 3. Gastrointestinal bleed. Anemia workup is pending. 4. Weakness, likely from multiple myeloma. Continue transfusion if hemoglobin level is below 7. 5. , continue to closely monitor. 6. Pain management, is on fentanyl. 7. Acute kidney injury, currently improved, likely related to myeloma. Continue to closely monitor. Jose Luis Deluna M.D. DR: MOOK JOB#: [id number] CC:
--- NOTE | 2017-01-21 15:15 | History and Physical Report ---
DATE OF ADMISSION: 01/18/2017 HISTORY OF PRESENT ILLNESS: . The patient has a history of multiple myeloma. Apparently has been falling a lot recently and . He has multiple ecchymosis, has organic brain syndrome. Oriented x2. However, not complaining of any significant pain. Denies shortness of breath. Denies chest pain. Denies nausea, vomiting, or diarrhea. No fever or chills. Denies rectal bleeding. PAST MEDICAL HISTORY: Multiple myeloma, CHF, chronic renal insufficiency, anemia, organic brain syndrome, BPH. PAST SURGICAL HISTORY: TURP. MEDICATIONS: Fentanyl, dexamethasone, hydromorphone, Revlimid, and Flomax. ALLERGIES: No known allergies. SOCIAL HISTORY: Denies smoking, alcohol, or illicit drugs. REVIEW OF SYSTEMS: HEENT: Denies headaches. Respiratory: Denies shortness of breath. Denies cough. Cardiovascular: Denies chest pain. Gastrointestinal: Denies nausea, vomiting, or diarrhea. Extremities: Denies pain. Central Nervous System: No change in vision or speech pattern. PHYSICAL EXAMINATION: VITAL SIGNS: Temperature is 97.8 degrees, pulse is 79, and blood pressure 131/81. HEENT: PERRLA. NECK: Supple. No lymphadenopathy. CHEST: Clear to auscultation. GI: Soft, nontender, and nondistended. No organomegaly. EXTREMITIES: No edema. Moves all four extremities. NEUROLOGIC: Sensory intact to light touch. Reflexes are equal on both sides. Oriented x2. LABORATORY AND DIAGNOSTIC DATA: WBC of 7.5, hemoglobin 7.3, and platelets of 169. Sodium 130, potassium 3, BUN of 34, and creatinine 1.5. Glucose of 162. ASSESSMENT AND PLAN: 1. Severe anemia most likely due to multiple myeloma. 2. Hypokalemia. 3. Hyponatremia. 4. Status post multiple falls. 5. I have asked Dr. Quigley, Dr. Cee, Dr. Alphonse Gibbs, and Dr. Kristopher Tompkins to see the patient for the above-mentioned diagnoses and treatment. Also, as well as treatment of renal failure as well as congestive heart failure. 6. The patient also has pneumonia on the chest x-ray and I have asked management of those respiratory problems. Ali Casie Gallo DR: VALENTINA JOB#: [id number] CC:
[2017-01-21 16:00] VITALS: BP 133/73
[2017-01-21 20:00] VITALS: BP 113/56
--- NOTE | 2017-01-21 20:33 | General Progress Note ---
Assessment/Plan Problem List: (1) CHF (congestive heart failure) ICD Codes: I50.9 - Heart failure, unspecified SNOMED: 12815984 Qualifiers: Qualified Codes: I50.9 - Heart failure, unspecified (2) Anemia ICD Codes: D64.9 - Anemia, unspecified SNOMED: 915886199 Qualifiers: Qualified Codes: D64.9 - Anemia, unspecified (3) Multiple myeloma ICD Codes: C90.00 - Multiple myeloma not having achieved remission SNOMED: 541583634 (4) DM (diabetes mellitus) ICD Codes: E11.9 - Type 2 diabetes mellitus without complications SNOMED: 66646551 (5) Altered level of consciousness ICD Codes: R40.4 - Transient alteration of awareness SNOMED: 3923222 (6) Renal insufficiency ICD Codes: N28.9 - Disorder of kidney and ureter, unspecified SNOMED: 700267990, 045688493 Status: progressing Assessment/Plan no gi bleeding s/p fall weak dm severe anemia due to mm transfusion per heme/onc chf no sob reviewed chart and labs no change Subjective ROS Limited/Unobtainable: Yes Allergies: Coded Allergies: No Known Allergies (Unverified , 01/18/17) Objective Last 24 Hour Vital Signs Date Time Temp Pulse Resp B/P (MAP) Pulse Ox O2 Delivery O2 Flow Rate FiO2 01/21/17 16:00 98.8 96 20 133/73 100 Room Air 01/21/17 16:00 102 01/21/17 12:00 97 01/21/17 12:00 97.5 87 18 131/69 99 Room Air 01/21/17 08:00 97.7 82 18 126/72 97 Room Air 01/21/17 07:35 82 01/21/17 04:34 84 01/21/17 03:57 97.5 82 20 118/67 100 Room Air 82 01/21/17 00:00 98.2 82 17 127/66 97 Room Air 01/21/17 00:00 84 Intake and Output 01/21/17 01/22/17 19:00 07:00 Intake Total 2180 ml Output Total 711 ml Balance 1469 ml Intake Oral 1200 ml IV Total 500 ml Other 480 ml Output Urine Total 710 ml Stool Total 1 ml # Voids 2 # Bowel Movements 6 1 Laboratory Tests 01/21/17 05:05: White Blood Count 5.1, Red Blood Count 2.74L, Hemoglobin 8.7L, Hematocrit 25.0L , Mean Corpuscular Volume 91, Mean Corpuscular Hemoglobin 31.8H, Mean Corpuscular Hemoglobin Concent 34.9, Red Cell Distribution Width 15.6H, Platelet Count 178, Mean Platelet Volume 6.1L, Neutrophils (%) (Auto) 74.4, Lymphocytes (%) (Auto) 13.4L, Monocytes (%) (Auto) 9.9, Eosinophils (%) (Auto) 1.9, Basophils (%) (Auto) 0.4, Sodium Level 136, Potassium Level 3.5, Chloride Level 106, Carbon Dioxide Level 21, Anion Gap 9, Blood Urea Nitrogen 16, Creatinine 1.2, Estimat Glomerular Filtration Rate , Glucose Level 97, Calcium Level 8.5 Height (Feet): 5 Height (Inches): 6.00 Weight (Pounds): 135 Parth Gallo MD Jan 21, 2017 20:33
[2017-01-22] VITALS: BP 99/56
[2017-01-22 04:00] VITALS: BP 124/68
[2017-01-22 04:56] LABS: BASOPHILS % (AUTO) 0.8 % (0.0-2.0); EOSINOPHILS % (AUTO) 1.5 % (0.0-3.0); LYMPHOCYTES % (AUTO) 14.6 % (20.0-45.0); MEAN CORPUSCULAR HEMOGLOBIN 30.2 PG (27.0-31.0); MEAN CORPUSCULAR HGB CONC 32.9 G/DL (32.0-36.0); MEAN CORPUSCULAR VOLUME 92 FL (80-99); MEAN PLATELET VOLUME 5.5 FL (6.5-10.1); MONOCYTES % (AUTO) 9.7 % (1.0-10.0); NEUTROPHILS % (AUTO) 73.4 % (45.0-75.0); PLATELET COUNT 164 K/UL (150-450); RED BLOOD COUNT 2.87 M/UL (4.70-6.10); RED CELL DISTRIBUTION WIDTH 15.8 % (11.6-14.8); WHITE BLOOD COUNT 4.6 K/UL (4.8-10.8)
[2017-01-22 08:00] VITALS: BP 120/64
--- NOTE | 2017-01-22 08:03 | General Progress Note ---
Assessment/Plan Problem List: (1) DM (diabetes mellitus) ICD Codes: E11.9 - Type 2 diabetes mellitus without complications SNOMED: 83934874 (2) Anemia ICD Codes: D64.9 - Anemia, unspecified SNOMED: 329864811 Qualifiers: Qualified Codes: D64.9 - Anemia, unspecified (3) Altered level of consciousness ICD Codes: R40.4 - Transient alteration of awareness SNOMED: 8767922 (4) Multiple myeloma ICD Codes: C90.00 - Multiple myeloma not having achieved remission SNOMED: 271841021 (5) OB + stool ICD Codes: R19.5 - Other fecal abnormalities SNOMED: 85707150, 040242202 (6) ? colon mass (7) Gallstone ICD Codes: K80.20 - Calculus of gallbladder without cholecystitis without obstruction SNOMED: 208118815 Assessment/Plan fu stool ob>>> + x2>> plan EGD and colonoscopy on Tuesday fu CEA monitoe H&H GI procedures on hold CT reviewed Subjective ROS Limited/Unobtainable: No Allergies: Coded Allergies: No Known Allergies (Unverified , 01/18/17) Subjective no event over night Objective Last 24 Hour Vital Signs Date Time Temp Pulse Resp B/P (MAP) Pulse Ox O2 Delivery O2 Flow Rate FiO2 01/22/17 04:00 97.5 66 16 124/68 99 Room Air 01/22/17 04:00 78 01/22/17 00:00 97.9 76 18 99/56 100 Room Air 01/22/17 00:00 89 01/21/17 20:00 98.2 98 21 113/56 96 Room Air 01/21/17 20:00 94 01/21/17 16:00 98.8 96 20 133/73 100 Room Air 01/21/17 16:00 102 01/21/17 12:00 97 01/21/17 12:00 97.5 87 18 131/69 99 Room Air Laboratory Tests 01/22/17 04:30: White Blood Count 4.6L, Red Blood Count 2.87L, Hemoglobin 8.7L, Hematocrit 26.3L , Mean Corpuscular Volume 92, Mean Corpuscular Hemoglobin 30.2, Mean Corpuscular Hemoglobin Concent 32.9, Red Cell Distribution Width 15.8H, Platelet Count 164, Mean Platelet Volume 5.5L, Neutrophils (%) (Auto) 73.4, Lymphocytes (%) (Auto) 14.6L, Monocytes (%) (Auto) 9.7, Eosinophils (%) (Auto) 1.5, Basophils (%) (Auto) 0.8 Procedure: CT Abdomen Pelvis w/Contrast Clinical Indication: Abdominal distention and anemia, history of multiple myeloma Technique: Patient given oral contrast. IV administration nonionic contrast. Venous phase spiral acquisition obtained through the abdomen and pelvis. Multiplanar reconstructions were generated. Total dose length product 602 mGycm. CTDIvol(s) 13 mGy. Dose reduction achieved using automated exposure control Comparison: None Findings: There is an indirect left inguinal hernia which contains a loop of the sigmoid colon. This does not appear to be obstructive or strangulated. There is a direct right inguinal hernia which contains a small portion of the bladder. There is colonic diverticulosis. No evidence of acute diverticulitis. There is a large polypoid filling defect within the distal transverse colon which measures 4.5 x 3 cm. Appearance is not characteristic of stool. The appendix is normal. There is no small bowel distention. Contrast is seen throughout the entirety of the small bowel and colon indicating lack of obstructive pathology. No small bowel wall thickening. No free or loculated intraperitoneal air or fluid is evident. The liver is minimally hypoattenuating. There is a 1.5 cm cyst in segment 2B. The gallbladder demonstrates gallstones. Bile ducts are slightly ectatic. The pancreas is atrophic. The spleen, adrenals are unremarkable. There are bilateral renal cysts, largest in the right kidney measuring 5.1 cm diameter. No renal or ureteral calculi, hydronephrosis, or hydroureter. There is abnormal axis deviation of the right kidney. No retroperitoneal or mesenteric mass or adenopathy. The prostate is not particularly enlarged, measuring 3.6 x 3.6 cm, although there is slight stranding of the periprostatic fat. The lung bases demonstrate some posterior cystic change on the right, mild honeycombing and dependent atelectasis. The bones demonstrate degenerative spondylosis changes. There are compression fracture deformities of T9, T10, T12 , L1, and L3. The lumbar spine demonstrates multiple osteolytic lesions as well as osteoblastic areas. A large osteolytic lesion is seen within the right iliac bone medially. This measures approximately 4.6 cm in diameter. This destroys the medial wall adjacent to the sacroiliac joint. Other osteolytic lesions are seen within the pelvis as well. There are multiple healed right rib fractures which may be pathologic fractures. There may be some healed left rib fractures as well. There is an osteosclerotic/osteolytic lesion of the visualized portion of the left scapula. Impression: Large filling defect within the distal transverse colon. While possibly representing stool, this is unusually homogeneous in appearance for stool and is therefore concerning for neoplasm. Consider endoscopy for further evaluation Indirect left inguinal hernia containing a loop of the sigmoid colon. This does not appear to be obstructive or strangulated Direct right inguinal hernia containing a small portion of the bladder Colonic diverticulosis Cholelithiasis Mild fatty liver Diffuse osseous abnormalities, as described, with mixed osteolytic and osteosclerotic, mostly lytic, areas. This is consistent with stated clinical history of multiple myeloma Multiple presumed pathologic compression fracture deformities of the lower thoracic and lumbar spine, age indeterminate Multiple healed right and possibly left rib fractures Pulmonary basilar cystic change, honeycombing, and dependent atelectasis Findings discussed by phone with Dr. Heller at the time of interpretation The CT scanner at [facility] is accredited by the [place] [employer] and the scans are performed using protocols designed to limit radiation exposure to as low as reasonably achievable to attain images of sufficient resolution adequate for diagnostic evaluation. Dictated By: JUSTA LLAMAS M.D. Electronically Signed By: JUSTA LLAMAS M.D. Signed Date/Time 01/21/17 1210 CC: NON PHYSICIAN; JOESPH HELLER Height (Feet): 5 Height (Inches): 6.00 Weight (Pounds): 135 General Appearance: no apparent distress EENT: normal ENT inspection Neck: supple Cardiovascular: normal rate Respiratory/Chest: decreased breath sounds Abdomen: normal bowel sounds, non tender, soft Extremities: non-tender EMILIA HELLER Jan 22, 2017 08:03
[2017-01-22] MEDS: Azithromycin 250mg tab ORAL SCH (08:45)
--- NOTE | 2017-01-22 10:04 | Nephrology Progress Note ---
Assessment/Plan Problem List: (1) Renal insufficiency (2) Anemia (3) Multiple myeloma (4) DM (diabetes mellitus) (5) Altered level of consciousness Assessment Severe Anemia, improved Proteinuria- HypoAlbuminemia- Low K- Low Na- MM- DMII- Plan NS- medium CHO diet K supplement- 24 H urine Protein monitor renal parameters- per consultants Subjective ROS Limited/Unobtainable: No Constitutional: Reports: malaise Objective Objective Last 24 Hour Vital Signs Date Time Temp Pulse Resp B/P (MAP) Pulse Ox O2 Delivery O2 Flow Rate FiO2 01/22/17 04:00 97.5 66 16 124/68 99 Room Air 01/22/17 04:00 78 01/22/17 00:00 97.9 76 18 99/56 100 Room Air 01/22/17 00:00 89 01/21/17 20:00 98.2 98 21 113/56 96 Room Air 01/21/17 20:00 94 01/21/17 16:00 98.8 96 20 133/73 100 Room Air 01/21/17 16:00 102 01/21/17 12:00 97 01/21/17 12:00 97.5 87 18 131/69 99 Room Air Laboratory Tests 01/22/17 04:30: White Blood Count 4.6L, Red Blood Count 2.87L, Hemoglobin 8.7L, Hematocrit 26.3L , Mean Corpuscular Volume 92, Mean Corpuscular Hemoglobin 30.2, Mean Corpuscular Hemoglobin Concent 32.9, Red Cell Distribution Width 15.8H, Platelet Count 164, Mean Platelet Volume 5.5L, Neutrophils (%) (Auto) 73.4, Lymphocytes (%) (Auto) 14.6L, Monocytes (%) (Auto) 9.7, Eosinophils (%) (Auto) 1.5, Basophils (%) (Auto) 0.8 Height (Feet): 5 Height (Inches): 6.00 Weight (Pounds): 135 General Appearance: no apparent distress Objective PE not changed SHWETHA GAMBOA Jan 22, 2017 10:04
[2017-01-22 12:00] VITALS: BP 120/55
[2017-01-22] MEDS: cefTRIAXone 1 GM in D5W 55 ML IVPB SCH (13:32)
--- NOTE | 2017-01-22 14:21 | General Progress Note ---
Assessment/Plan Assessment/Plan ASSESSMENT AND RECOMMENDATIONS: 1. Multiple myeloma. --> Was on Revlimid, which can potentially cause myelosuppression --> outpatient followup 2. 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 Continue to closely monitor. 3. Gastrointestinal bleed. egd/ colo scheduled. 4. Weakness, likely from multiple myeloma. Continue transfusion if hemoglobin level is below 7. 5. Possible colonic mass seen on A/P CT. GI service following. continue to closely monitor. 6. Pain management, is on fentanyl. 7. Acute kidney injury, currently improved, Subjective Allergies: Coded Allergies: No Known Allergies (Unverified , 01/18/17) All Systems: reviewed and negative except above Subjective NAD Objective Last 24 Hour Vital Signs Date Time Temp Pulse Resp B/P (MAP) Pulse Ox O2 Delivery O2 Flow Rate FiO2 01/22/17 12:00 98.1 81 18 120/55 98 Room Air 01/22/17 11:49 82 01/22/17 08:00 77 01/22/17 08:00 97.7 80 18 120/64 98 Room Air 01/22/17 04:00 97.5 66 16 124/68 99 Room Air 01/22/17 04:00 78 01/22/17 00:00 97.9 76 18 99/56 100 Room Air 01/22/17 00:00 89 01/21/17 20:00 98.2 98 21 113/56 96 Room Air 01/21/17 20:00 94 01/21/17 16:00 98.8 96 20 133/73 100 Room Air 01/21/17 16:00 102 Intake and Output 01/22/17 01/23/17 19:00 07:00 # Bowel Movements 1 Laboratory Tests 01/22/17 04:30: White Blood Count 4.6L, Red Blood Count 2.87L, Hemoglobin 8.7L, Hematocrit 26.3L , Mean Corpuscular Volume 92, Mean Corpuscular Hemoglobin 30.2, Mean Corpuscular Hemoglobin Concent 32.9, Red Cell Distribution Width 15.8H, Platelet Count 164, Mean Platelet Volume 5.5L, Neutrophils (%) (Auto) 73.4, Lymphocytes (%) (Auto) 14.6L, Monocytes (%) (Auto) 9.7, Eosinophils (%) (Auto) 1.5, Basophils (%) (Auto) 0.8 Height (Feet): 5 Height (Inches): 6.00 Weight (Pounds): 135 General Appearance: no apparent distress EENT: normal ENT inspection Neck: normal alignment Abdomen: normal bowel sounds 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
[2017-01-22 16:00] VITALS: BP 122/96
[2017-01-22 20:00] VITALS: BP 113/66
--- NOTE | 2017-01-22 22:54 | General Progress Note ---
Assessment/Plan Problem List: (1) CHF (congestive heart failure) ICD Codes: I50.9 - Heart failure, unspecified SNOMED: 94736576 Qualifiers: Qualified Codes: I50.9 - Heart failure, unspecified (2) Anemia ICD Codes: D64.9 - Anemia, unspecified SNOMED: 806591239 Qualifiers: Qualified Codes: D64.9 - Anemia, unspecified (3) Multiple myeloma ICD Codes: C90.00 - Multiple myeloma not having achieved remission SNOMED: 798347291 (4) DM (diabetes mellitus) ICD Codes: E11.9 - Type 2 diabetes mellitus without complications SNOMED: 88848105 (5) Altered level of consciousness ICD Codes: R40.4 - Transient alteration of awareness SNOMED: 9670638 (6) Renal insufficiency ICD Codes: N28.9 - Disorder of kidney and ureter, unspecified SNOMED: 287119561, 096687957 Status: progressing Assessment/Plan bg improving no bleeding reviwed meds no acute events dm severe anemia due to mm transfusion per heme/onc chf no sob reviewed chart and labs no change Subjective ROS Limited/Unobtainable: Yes Allergies: Coded Allergies: No Known Allergies (Unverified , 01/18/17) Objective Last 24 Hour Vital Signs Date Time Temp Pulse Resp B/P (MAP) Pulse Ox O2 Delivery O2 Flow Rate FiO2 01/22/17 20:00 98.1 91 18 113/66 98 Room Air 01/22/17 19:43 93 01/22/17 16:00 86 01/22/17 16:00 98.3 88 16 122/96 98 Room Air 01/22/17 12:00 98.1 81 18 120/55 98 Room Air 01/22/17 11:49 82 01/22/17 08:00 77 01/22/17 08:00 97.7 80 18 120/64 98 Room Air 01/22/17 04:00 97.5 66 16 124/68 99 Room Air 01/22/17 04:00 78 01/22/17 00:00 97.9 76 18 99/56 100 Room Air 01/22/17 00:00 89 Intake and Output 01/22/17 01/23/17 19:00 07:00 Intake Total 1330 ml Output Total 225 ml Balance 1105 ml Intake Oral 1080 ml IV Total 250 ml Output Urine Total 225 ml # Voids 1 # Bowel Movements 3 Laboratory Tests 01/22/17 04:30: White Blood Count 4.6L, Red Blood Count 2.87L, Hemoglobin 8.7L, Hematocrit 26.3L , Mean Corpuscular Volume 92, Mean Corpuscular Hemoglobin 30.2, Mean Corpuscular Hemoglobin Concent 32.9, Red Cell Distribution Width 15.8H, Platelet Count 164, Mean Platelet Volume 5.5L, Neutrophils (%) (Auto) 73.4, Lymphocytes (%) (Auto) 14.6L, Monocytes (%) (Auto) 9.7, Eosinophils (%) (Auto) 1.5, Basophils (%) (Auto) 0.8 Height (Feet): 5 Height (Inches): 6.00 Weight (Pounds): 135 Parth Gallo MD Jan 22, 2017 22:54
[2017-01-23] VITALS: BP 130/72
[2017-01-23 04:00] VITALS: BP 128/66
[2017-01-23 05:16] LABS: BASOPHILS % (AUTO) 0.5 % (0.0-2.0); EOSINOPHILS % (AUTO) 1.7 % (0.0-3.0); LYMPHOCYTES % (AUTO) 16.6 % (20.0-45.0); MEAN CORPUSCULAR HEMOGLOBIN 30.3 PG (27.0-31.0); MEAN CORPUSCULAR HGB CONC 33.1 G/DL (32.0-36.0); MEAN CORPUSCULAR VOLUME 92 FL (80-99); MEAN PLATELET VOLUME 5.9 FL (6.5-10.1); MONOCYTES % (AUTO) 9.8 % (1.0-10.0); NEUTROPHILS % (AUTO) 71.3 % (45.0-75.0); PLATELET COUNT 178 K/UL (150-450); RED CELL DISTRIBUTION WIDTH 16.5 % (11.6-14.8); WHITE BLOOD COUNT 4.2 K/UL (4.8-10.8)
--- NOTE | 2017-01-23 07:36 | General Progress Note ---
Assessment/Plan Problem List: (1) DM (diabetes mellitus) ICD Codes: E11.9 - Type 2 diabetes mellitus without complications SNOMED: 17940996 (2) Anemia ICD Codes: D64.9 - Anemia, unspecified SNOMED: 662834486 Qualifiers: Qualified Codes: D64.9 - Anemia, unspecified (3) Altered level of consciousness ICD Codes: R40.4 - Transient alteration of awareness SNOMED: 9723199 (4) Multiple myeloma ICD Codes: C90.00 - Multiple myeloma not having achieved remission SNOMED: 107954938 (5) OB + stool ICD Codes: R19.5 - Other fecal abnormalities SNOMED: 21375460, 529472497 (6) ? colon mass (7) Gallstone ICD Codes: K80.20 - Calculus of gallbladder without cholecystitis without obstruction SNOMED: 231606179 Assessment/Plan fu stool ob>>> + x2>> plan EGD and colonoscopy on Tuesday d/w patient daughter fu CEA monitor H&H CT reviewed Subjective ROS Limited/Unobtainable: Yes Allergies: Coded Allergies: No Known Allergies (Unverified , 01/18/17) Subjective no event over night Objective Last 24 Hour Vital Signs Date Time Temp Pulse Resp B/P (MAP) Pulse Ox O2 Delivery O2 Flow Rate FiO2 01/23/17 04:00 97.2 81 17 128/66 96 Room Air 01/23/17 03:50 72 01/23/17 00:00 97.7 85 16 130/72 96 Room Air 01/22/17 23:53 83 01/22/17 20:00 98.1 91 18 113/66 98 Room Air 01/22/17 19:43 93 01/22/17 16:00 86 01/22/17 16:00 98.3 88 16 122/96 98 Room Air 01/22/17 12:00 98.1 81 18 120/55 98 Room Air 01/22/17 11:49 82 01/22/17 08:00 77 01/22/17 08:00 97.7 80 18 120/64 98 Room Air Laboratory Tests 01/23/17 04:15: White Blood Count 4.2L, Red Blood Count 2.70L, Hemoglobin 8.2L, Hematocrit 24.7L , Mean Corpuscular Volume 92, Mean Corpuscular Hemoglobin 30.3, Mean Corpuscular Hemoglobin Concent 33.1, Red Cell Distribution Width 16.5H, Platelet Count 178, Mean Platelet Volume 5.9L, Neutrophils (%) (Auto) 71.3, Lymphocytes (%) (Auto) 16.6L, Monocytes (%) (Auto) 9.8, Eosinophils (%) (Auto) 1.7, Basophils (%) (Auto) 0.5 Height (Feet): 5 Height (Inches): 6.00 Weight (Pounds): 135 General Appearance: alert EENT: normal ENT inspection Neck: supple Cardiovascular: normal rate Respiratory/Chest: decreased breath sounds Abdomen: normal bowel sounds, non tender, soft Extremities: non-tender EMILIA PRASAD Jan 23, 2017 07:36
[2017-01-23] MEDS ORDERED: Bisacodyl EC 5mg tab ORAL ONE (07:45)
[2017-01-23 08:00] VITALS: BP 118/53
--- NOTE | 2017-01-23 08:24 | Infectious Diseases Prog Note ---
Assessment/Plan Assessment/Plan A. Sepsis, SIRS Severe anemia Multiple myeloma DM Cholelithiasis Diverticulosis Fatty liver ? Transverse colon filling defect P: Continue Ceftriaxone X1 day , discontinue Zithromax will have EGD & colonoscopy tomorrow Subjective ROS Limited/Unobtainable: No Constitutional: Reports: no symptoms Respiratory: Reports: no symptoms Cardiovascular: Reports: no symptoms Gastrointestinal/Abdominal: Reports: no symptoms Genitourinary: Reports: no symptoms Allergies: Coded Allergies: No Known Allergies (Unverified , 01/18/17) Objective Vital Signs Last 24 Hour Vital Signs Date Time Temp Pulse Resp B/P (MAP) Pulse Ox O2 Delivery O2 Flow Rate FiO2 01/23/17 04:00 97.2 81 17 128/66 96 Room Air 01/23/17 03:50 72 01/23/17 00:00 97.7 85 16 130/72 96 Room Air 01/22/17 23:53 83 01/22/17 20:00 98.1 91 18 113/66 98 Room Air 01/22/17 19:43 93 01/22/17 16:00 86 01/22/17 16:00 98.3 88 16 122/96 98 Room Air 01/22/17 12:00 98.1 81 18 120/55 98 Room Air 01/22/17 11:49 82 Height (Feet): 5 Height (Inches): 6.00 Weight (Pounds): 135 General Appearance: no acute distress HEENT: mucous membranes moist Respiratory/Chest: lungs clear Cardiovascular: normal rate Abdomen: soft, non tender Extremities: no edema Neurologic/Psychiatric: alert, oriented x 3, responsive Laboratory Tests Test 01/23/17 04:15 White Blood Count 4.2 K/UL (4.8-10.8) L Red Blood Count 2.70 M/UL (4.70-6.10) L Hemoglobin 8.2 G/DL (14.2-18.0) L Hematocrit 24.7 % (42.0-52.0) L Mean Corpuscular Volume 92 FL (80-99) Mean Corpuscular Hemoglobin 30.3 PG (27.0-31.0) Mean Corpuscular Hemoglobin Concent 33.1 G/DL (32.0-36.0) Red Cell Distribution Width 16.5 % (11.6-14.8) H Platelet Count 178 K/UL (150-450) Mean Platelet Volume 5.9 FL (6.5-10.1) L Neutrophils (%) (Auto) 71.3 % (45.0-75.0) Lymphocytes (%) (Auto) 16.6 % (20.0-45.0) L Monocytes (%) (Auto) 9.8 % (1.0-10.0) Eosinophils (%) (Auto) 1.7 % (0.0-3.0) Basophils (%) (Auto) 0.5 % (0.0-2.0) Current Medications Medications (Trade) Dose Ordered Sig/Ashli Route PRN Reason Start Time Stop Time Status Last Admin Dose Admin Acetaminophen (Tylenol) 650 mg Q4H PRN ORAL Mild Pain/Temp > 100.5 01/19/17 00:00 02/18/17 00:00 01/20/17 18:43 Azithromycin (Zithromax) 250 mg DAILY ORAL 01/20/17 09:00 01/23/17 09:15 01/22/17 08:45 Ceftriaxone Sodium 1 gm/ Dextrose 55 ml @ 110 mls/hr Q24H IVPB 01/19/17 11:00 01/26/17 10:59 01/22/17 13:32 Pantoprazole (Protonix) 40 mg DAILY ORAL 01/20/17 09:00 02/19/17 08:59 01/22/17 08:45 Polyethylene Glycol/ Electrolytes (Nulytely) 4,000 ml ONCE ONCE ORAL 01/23/17 14:00 01/23/17 14:01 Sodium Chloride 1,000 ml @ 50 mls/hr Q20H IV 01/19/17 13:00 02/18/17 12:59 01/22/17 21:56 CHINEDU OSORIO Jan 23, 2017 08:24
--- NOTE | 2017-01-23 10:37 | Nephrology Progress Note ---
Assessment/Plan Problem List: (1) Renal insufficiency (2) Anemia (3) Multiple myeloma (4) DM (diabetes mellitus) (5) Altered level of consciousness Assessment Severe Anemia, improved Proteinuria- HypoAlbuminemia- Low K- Low Na- MM- DMII- Plan stable- to Med surg- NS- medium CHO diet K supplement- 24 H urine Protein monitor renal parameters- per consultants Subjective ROS Limited/Unobtainable: No Objective Objective Last 24 Hour Vital Signs Date Time Temp Pulse Resp B/P (MAP) Pulse Ox O2 Delivery O2 Flow Rate FiO2 01/23/17 08:00 97.9 63 20 118/53 100 Room Air 01/23/17 08:00 81 01/23/17 04:00 97.2 81 17 128/66 96 Room Air 01/23/17 03:50 72 01/23/17 00:00 97.7 85 16 130/72 96 Room Air 01/22/17 23:53 83 01/22/17 20:00 98.1 91 18 113/66 98 Room Air 01/22/17 19:43 93 01/22/17 16:00 86 01/22/17 16:00 98.3 88 16 122/96 98 Room Air 01/22/17 12:00 98.1 81 18 120/55 98 Room Air 01/22/17 11:49 82 Intake and Output 01/23/17 01/24/17 19:00 07:00 Intake Total 340 ml Balance 340 ml Intake Oral 240 ml IV Total 100 ml # Voids 1 Laboratory Tests 01/23/17 04:15: White Blood Count 4.2L, Red Blood Count 2.70L, Hemoglobin 8.2L, Hematocrit 24.7L , Mean Corpuscular Volume 92, Mean Corpuscular Hemoglobin 30.3, Mean Corpuscular Hemoglobin Concent 33.1, Red Cell Distribution Width 16.5H, Platelet Count 178, Mean Platelet Volume 5.9L, Neutrophils (%) (Auto) 71.3, Lymphocytes (%) (Auto) 16.6L, Monocytes (%) (Auto) 9.8, Eosinophils (%) (Auto) 1.7, Basophils (%) (Auto) 0.5 Height (Feet): 5 Height (Inches): 6.00 Weight (Pounds): 135 General Appearance: no apparent distress Cardiovascular: normal rate Abdomen: soft Objective PE not changed FOULADIAN,SHWETHA Jan 23, 2017 10:37
[2017-01-23] MEDS: cefTRIAXone 1 GM in D5W 55 ML IVPB SCH (11:48)
[2017-01-23 12:00] VITALS: BP 128/74
[2017-01-23] MEDS ORDERED: Nulytely 4L ORAL ONE ×2 (14:00)
[2017-01-23 16:00] VITALS: BP 141/74
--- NOTE | 2017-01-23 20:42 | General Progress Note ---
Assessment/Plan Assessment/Plan ASSESSMENT AND RECOMMENDATIONS: 1. Multiple myeloma. --> Was on Revlimid, which can potentially cause myelosuppression --> outpatient followup 2. 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 Continue to closely monitor. --> work up has been reviewed 3. Gastrointestinal bleed. egd/ colo scheduled. 4. Weakness, likely from multiple myeloma. Continue transfusion if hemoglobin level is below 7. 5. Possible colonic mass seen on A/P CT. GI service following. continue to closely monitor. 6. Acute kidney injury, currently improved, Subjective Allergies: Coded Allergies: No Known Allergies (Unverified , 01/18/17) All Systems: reviewed and negative except above Subjective egd/colo scheduled for tomorrow, resting comfortably Objective Last 24 Hour Vital Signs Date Time Temp Pulse Resp B/P (MAP) Pulse Ox O2 Delivery O2 Flow Rate FiO2 01/23/17 16:00 98.6 83 19 141/74 98 Room Air 01/23/17 12:00 79 01/23/17 12:00 98.2 80 20 128/74 98 Room Air 01/23/17 08:00 97.9 63 20 118/53 100 Room Air 01/23/17 08:00 81 01/23/17 04:00 97.2 81 17 128/66 96 Room Air 01/23/17 03:50 72 01/23/17 00:00 97.7 85 16 130/72 96 Room Air 01/22/17 23:53 83 Intake and Output 01/23/17 01/24/17 19:00 07:00 Intake Total 3040 ml Output Total 850 ml Balance 2190 ml Intake Oral 2540 ml IV Total 500 ml Output Urine Total 850 ml # Voids 4 # Bowel Movements 5 Laboratory Tests 01/23/17 04:15: White Blood Count 4.2L, Red Blood Count 2.70L, Hemoglobin 8.2L, Hematocrit 24.7L , Mean Corpuscular Volume 92, Mean Corpuscular Hemoglobin 30.3, Mean Corpuscular Hemoglobin Concent 33.1, Red Cell Distribution Width 16.5H, Platelet Count 178, Mean Platelet Volume 5.9L, Neutrophils (%) (Auto) 71.3, Lymphocytes (%) (Auto) 16.6L, Monocytes (%) (Auto) 9.8, Eosinophils (%) (Auto) 1.7, Basophils (%) (Auto) 0.5 Height (Feet): 5 Height (Inches): 6.00 Weight (Pounds): 135 General Appearance: no apparent distress EENT: normal ENT inspection Neck: non-tender Respiratory/Chest: chest wall non-tender Edema: trace edema 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
--- NOTE | 2017-01-23 21:19 | General Progress Note ---
Assessment/Plan Problem List: (1) CHF (congestive heart failure) ICD Codes: I50.9 - Heart failure, unspecified SNOMED: 79588726 Qualifiers: Qualified Codes: I50.9 - Heart failure, unspecified (2) Anemia ICD Codes: D64.9 - Anemia, unspecified SNOMED: 512460615 Qualifiers: Qualified Codes: D64.9 - Anemia, unspecified (3) Multiple myeloma ICD Codes: C90.00 - Multiple myeloma not having achieved remission SNOMED: 515372874 (4) DM (diabetes mellitus) ICD Codes: E11.9 - Type 2 diabetes mellitus without complications SNOMED: 24305332 (5) Altered level of consciousness ICD Codes: R40.4 - Transient alteration of awareness SNOMED: 7521588 (6) Renal insufficiency ICD Codes: N28.9 - Disorder of kidney and ureter, unspecified SNOMED: 005349949, 069812500 Status: progressing Assessment/Plan MM poor prognosis dm severe anemia due to mm transfusion per heme/onc chf asymptomatic no sob reviewed chart and labs Subjective ROS Limited/Unobtainable: Yes Allergies: Coded Allergies: No Known Allergies (Unverified , 01/18/17) Objective Last 24 Hour Vital Signs Date Time Temp Pulse Resp B/P (MAP) Pulse Ox O2 Delivery O2 Flow Rate FiO2 01/23/17 16:00 98.6 83 19 141/74 98 Room Air 01/23/17 12:00 79 01/23/17 12:00 98.2 80 20 128/74 98 Room Air 01/23/17 08:00 97.9 63 20 118/53 100 Room Air 01/23/17 08:00 81 01/23/17 04:00 97.2 81 17 128/66 96 Room Air 01/23/17 03:50 72 01/23/17 00:00 97.7 85 16 130/72 96 Room Air 01/22/17 23:53 83 Intake and Output 01/23/17 01/24/17 19:00 07:00 Intake Total 3040 ml Output Total 850 ml Balance 2190 ml Intake Oral 2540 ml IV Total 500 ml Output Urine Total 850 ml # Voids 4 # Bowel Movements 5 Laboratory Tests 01/23/17 04:15: White Blood Count 4.2L, Red Blood Count 2.70L, Hemoglobin 8.2L, Hematocrit 24.7L , Mean Corpuscular Volume 92, Mean Corpuscular Hemoglobin 30.3, Mean Corpuscular Hemoglobin Concent 33.1, Red Cell Distribution Width 16.5H, Platelet Count 178, Mean Platelet Volume 5.9L, Neutrophils (%) (Auto) 71.3, Lymphocytes (%) (Auto) 16.6L, Monocytes (%) (Auto) 9.8, Eosinophils (%) (Auto) 1.7, Basophils (%) (Auto) 0.5 Height (Feet): 5 Height (Inches): 6.00 Weight (Pounds): 135 Parth Gallo MD Jan 23, 2017 21:19
--- NOTE | 2017-01-23 22:13 | Cardiology Progress Note ---
Assessment/Plan Assessment/Plan 1. Altered level of consciousness, resolved, continue the current management, echo reveals normal LV systolic function. 2. Sinus tachycardia, resolved. 3. DM 4. Moderate MR. Subjective Subjective Transferred to the medical-surgical unit. Denies chest pain or SOB. Objective Last 24 Hour Vital Signs Date Time Temp Pulse Resp B/P (MAP) Pulse Ox O2 Delivery O2 Flow Rate FiO2 01/23/17 16:00 98.6 83 19 141/74 98 Room Air 01/23/17 12:00 79 01/23/17 12:00 98.2 80 20 128/74 98 Room Air 01/23/17 08:00 97.9 63 20 118/53 100 Room Air 01/23/17 08:00 81 01/23/17 04:00 97.2 81 17 128/66 96 Room Air 01/23/17 03:50 72 01/23/17 00:00 97.7 85 16 130/72 96 Room Air 01/22/17 23:53 83 Intake and Output 01/23/17 01/24/17 19:00 07:00 Intake Total 3040 ml Output Total 850 ml Balance 2190 ml Intake Oral 2540 ml IV Total 500 ml Output Urine Total 850 ml # Voids 4 # Bowel Movements 5 2D Echo: LVEF 55%, Mild LVH, LAE, Mod AR/MR, Grade I LVDD Laboratory Tests Test 01/23/17 04:15 White Blood Count 4.2 K/UL (4.8-10.8) L Red Blood Count 2.70 M/UL (4.70-6.10) L Hemoglobin 8.2 G/DL (14.2-18.0) L Hematocrit 24.7 % (42.0-52.0) L Mean Corpuscular Volume 92 FL (80-99) Mean Corpuscular Hemoglobin 30.3 PG (27.0-31.0) Mean Corpuscular Hemoglobin Concent 33.1 G/DL (32.0-36.0) Red Cell Distribution Width 16.5 % (11.6-14.8) H Platelet Count 178 K/UL (150-450) Mean Platelet Volume 5.9 FL (6.5-10.1) L Neutrophils (%) (Auto) 71.3 % (45.0-75.0) Lymphocytes (%) (Auto) 16.6 % (20.0-45.0) L Monocytes (%) (Auto) 9.8 % (1.0-10.0) Eosinophils (%) (Auto) 1.7 % (0.0-3.0) Basophils (%) (Auto) 0.5 % (0.0-2.0) Objective General Appearance: no apparent distress, alert, GCS 15, non-toxic HEENT: normocephalic, atraumatic, bilateral eye PERRL, EOMI Neck: Negative JVD, carotid upstroke 2+ with no bruit. Respiratory: normal breath sounds, speaking full sentences Cardiovascular: regular rate, rhythm, normal S1S2, no murmurs, gallops or rubs. Gastrointestinal: normal bowel sounds, non tender, soft, non-distended, no guarding, no rebound Genitourinary: normal inspection, no CVA tenderness Musculoskeletal: No edema, clubbing or cyanosis. SILVA VALENZUELA Jan 23, 2017 22:13
[2017-01-24 04:07] VITALS: BP 146/70
[2017-01-24 07:04] LABS: MEAN CORPUSCULAR HEMOGLOBIN 30.2 PG (27.0-31.0); MEAN CORPUSCULAR HGB CONC 32.8 G/DL (32.0-36.0); MEAN CORPUSCULAR VOLUME 92 FL (80-99); MEAN PLATELET VOLUME 5.3 FL (6.5-10.1); PLATELET COUNT 154 K/UL (150-450); RED CELL DISTRIBUTION WIDTH 15.7 % (11.6-14.8)
[2017-01-24 07:20] LABS: ANION GAP 10 mmol/L (5-15); CALCIUM 8.5 MG/DL (8.5-10.1); CARBON DIOXIDE 23 MMOL/L (21-32); CHLORIDE 106 MMOL/L (98-107); CREATININE 1.3 MG/DL (0.55-1.30); SODIUM 139 MMOL/L (136-145)
[2017-01-24 07:29] LABS: POTASSIUM 2.6 MMOL/L (3.5-5.1)
[2017-01-24 08:00] VITALS: BP 131/70
[2017-01-24 08:21] LABS: ANISOCYTOSIS 1+; BAND NEUTROPHILS % (MANUAL) 0 % (0-8); BASOPHILS % (MANUAL) 1 % (0-2); EOSINOPHILS % (MANUAL) 1 % (0-3); LYMPHOCYTES % (MANUAL) 18 % (20-45); NEUTROPHILS % (MANUAL) 72 % (45-75); PLATELET ESTIMATE ADEQUATE; PLATELET MORPHOLOGY NORMAL; TOTAL CELLS COUNTED 100
--- NOTE | 2017-01-24 09:37 | Anethesia Preoperative Eval ---
Anesthesia Pre-op PMH/ROS General Date of Evaluation: Jan 24, 2017 Time of Evaluation: 09:28 Anesthesiologist: chico ASA Score: ASA 4 Mallampati Score Class I : Soft palate, uvula, fauces, pillars visible Class II: Soft palate, uvula, fauces visible Class III: Soft palate, base of uvula visible Class IV: Only hard plate visible Surgeon: vicky Diagnosis: colon mass Surgical Procedure: egd/colonoscopy Social History: smoking - nonsmoker Family History: no anesthesia problems Allergies: Coded Allergies: No Known Allergies (Unverified , 01/18/17) Medications: see eMAR Past Medical History Cardiovascular: Reports: other - cardiomegaly, chf Gastrointestinal/Genitourinary: Reports: CRI, other - gallstones, colon mass Neurologic/Psychiatric: Reports: other - ams Endocrine: Reports: DM Hematology/Immune: Reports: anemia, other - multiple myeloma Anesthesia Pre-op Phys. Exam Physician Exam Last Vital Signs Date Time Temp Pulse Resp B/P (MAP) Pulse Ox O2 Delivery O2 Flow Rate FiO2 01/24/17 08:00 98.5 80 19 131/70 98 Room Air Constitutional: NAD Neurologic: other Cardiovascular: RRR Respiratory: CTA Gastrointestinal: S/NT/ND Airway Exam Mallampati Score: Class II MO: limited Neck: decreased rom ROM: limited Anesthesia Pre-op A/P Labs Hematology Test 01/24/17 06:15 White Blood Count 3.0 K/UL (4.8-10.8) L Red Blood Count 2.70 M/UL (4.70-6.10) L Hemoglobin 8.1 G/DL (14.2-18.0) L Hematocrit 24.8 % (42.0-52.0) L Mean Corpuscular Volume 92 FL (80-99) Mean Corpuscular Hemoglobin 30.2 PG (27.0-31.0) Mean Corpuscular Hemoglobin Concent 32.8 G/DL (32.0-36.0) Red Cell Distribution Width 15.7 % (11.6-14.8) H Platelet Count 154 K/UL (150-450) Mean Platelet Volume 5.3 FL (6.5-10.1) L Neutrophils (%) (Auto) % (45.0-75.0) Lymphocytes (%) (Auto) % (20.0-45.0) Monocytes (%) (Auto) % (1.0-10.0) Eosinophils (%) (Auto) % (0.0-3.0) Basophils (%) (Auto) % (0.0-2.0) Differential Total Cells Counted 100 Neutrophils % (Manual) 72 % (45-75) Lymphocytes % (Manual) 18 % (20-45) L Monocytes % (Manual) 8 % (1-10) Eosinophils % (Manual) 1 % (0-3) Basophils % (Manual) 1 % (0-2) Band Neutrophils 0 % (0-8) Platelet Estimate Adequate Platelet Morphology Normal Anisocytosis 1+ Chemistry Test 01/24/17 06:15 Sodium Level 139 MMOL/L (136-145) Potassium Level 2.6 MMOL/L (3.5-5.1) *L Chloride Level 106 MMOL/L (98-107) Carbon Dioxide Level 23 MMOL/L (21-32) Anion Gap 10 mmol/L (5-15) Blood Urea Nitrogen 10 mg/dL (7-18) Creatinine 1.3 MG/DL (0.55-1.30) Estimat Glomerular Filtration Rate mL/min (>60) Glucose Level 82 MG/DL (74-106) Calcium Level 8.5 MG/DL (8.5-10.1) Risk Assessment & Plan Assessment: asa4. k+ 2.6 Plan: potassium replacement ordered per iv by dr perry. service delayed per floor. repeat labs after infusion Status Change Before Surgery: No Pre-Antibiotics Drug: MARY Hargrove Jan 24, 2017 09:37
--- NOTE | 2017-01-24 10:15 | Diagnostic Imaging Report ---
APPROVED REPORT CPT Code: 79446 Present Symptoms Comments: R/O DVT BILATERAL: Imaging reveals a patent deep venous system bilaterally. There is no evidence of thrombus within the femoral, popliteal or tibial segments. The greater saphenous veins are also within normal limits. Doppler indicates normal spontaneous flow within these segments.
--- NOTE | 2017-01-24 10:27 | Pre-Procedure Note/Attestation ---
Pre-Procedure Note/Attestation Complete Prior to Procedure Planned Procedure: not applicable Procedure Narrative: esophagogastroduodenoscopy and colonoscopy Indications for Procedure Pre-Operative Diagnosis: anemia, GIB Attestation I attest that I discussed the nature of the procedure; its benefits; risks and complications; and alternatives (and the risks and benefits of such alternatives ), prior to the procedure, with the patient (or the patient's legal fulfillment representative). I attest that, if there was a reasonable possibility of needing a blood transfusion, the patient (or the patient's legal fulfillment representative) was given the [facility] standardized written summary, pursuant to the [place] Blood Safety Act ([place] Health and Safety Code # 1645, as amended). I attest that I re-evaluated the patient just prior to the surgery and that there has been no change in the patient's H&P, except as documented below: EMILIA PRASAD Jan 24, 2017 10:27
--- NOTE | 2017-01-24 10:54 | Infectious Diseases Prog Note ---
Assessment/Plan Assessment/Plan A. Sepsis, SIRS Severe anemia Multiple myeloma DM Cholelithiasis Diverticulosis Fatty liver ? Transverse colon filling defect P: discontinue Ceftriaxone will f/u EGD & colonoscopy Subjective ROS Limited/Unobtainable: No Constitutional: Reports: no symptoms Respiratory: Reports: no symptoms Cardiovascular: Reports: no symptoms Gastrointestinal/Abdominal: Reports: no symptoms Genitourinary: Reports: no symptoms Allergies: Coded Allergies: No Known Allergies (Unverified , 01/18/17) Objective Vital Signs Last 24 Hour Vital Signs Date Time Temp Pulse Resp B/P (MAP) Pulse Ox O2 Delivery O2 Flow Rate FiO2 01/24/17 08:00 98.5 80 19 131/70 98 Room Air 01/24/17 04:07 98.3 87 20 146/70 98 Room Air 01/23/17 16:00 98.6 83 19 141/74 98 Room Air 01/23/17 12:00 79 01/23/17 12:00 98.2 80 20 128/74 98 Room Air Height (Feet): 5 Height (Inches): 6.00 Weight (Pounds): 135 General Appearance: no acute distress HEENT: mucous membranes moist Respiratory/Chest: lungs clear Cardiovascular: normal rate Abdomen: soft, non tender Extremities: no edema Neurologic/Psychiatric: alert, oriented x 3, responsive Laboratory Tests Test 01/24/17 06:15 White Blood Count 3.0 K/UL (4.8-10.8) L Red Blood Count 2.70 M/UL (4.70-6.10) L Hemoglobin 8.1 G/DL (14.2-18.0) L Hematocrit 24.8 % (42.0-52.0) L Mean Corpuscular Volume 92 FL (80-99) Mean Corpuscular Hemoglobin 30.2 PG (27.0-31.0) Mean Corpuscular Hemoglobin Concent 32.8 G/DL (32.0-36.0) Red Cell Distribution Width 15.7 % (11.6-14.8) H Platelet Count 154 K/UL (150-450) Mean Platelet Volume 5.3 FL (6.5-10.1) L Neutrophils (%) (Auto) % (45.0-75.0) Lymphocytes (%) (Auto) % (20.0-45.0) Monocytes (%) (Auto) % (1.0-10.0) Eosinophils (%) (Auto) % (0.0-3.0) Basophils (%) (Auto) % (0.0-2.0) Differential Total Cells Counted 100 Neutrophils % (Manual) 72 % (45-75) Lymphocytes % (Manual) 18 % (20-45) L Monocytes % (Manual) 8 % (1-10) Eosinophils % (Manual) 1 % (0-3) Basophils % (Manual) 1 % (0-2) Band Neutrophils 0 % (0-8) Platelet Estimate Adequate Platelet Morphology Normal Anisocytosis 1+ Sodium Level 139 MMOL/L (136-145) Potassium Level 2.6 MMOL/L (3.5-5.1) *L Chloride Level 106 MMOL/L (98-107) Carbon Dioxide Level 23 MMOL/L (21-32) Anion Gap 10 mmol/L (5-15) Blood Urea Nitrogen 10 mg/dL (7-18) Creatinine 1.3 MG/DL (0.55-1.30) Estimat Glomerular Filtration Rate mL/min (>60) Glucose Level 82 MG/DL (74-106) Calcium Level 8.5 MG/DL (8.5-10.1) Current Medications Medications (Trade) Dose Ordered Sig/Ashli Route PRN Reason Start Time Stop Time Status Last Admin Dose Admin Acetaminophen (Tylenol) 650 mg Q4H PRN ORAL Mild Pain/Temp > 100.5 01/23/17 16:00 02/18/17 00:00 Ceftriaxone Sodium 1 gm/ Dextrose 55 ml @ 110 mls/hr Q24H IVPB 01/24/17 11:00 01/26/17 10:59 Pantoprazole (Protonix) 40 mg DAILY ORAL 01/24/17 09:00 02/19/17 08:59 01/24/17 10:12 Potassium Chloride 20 meq/ Sodium Chloride 285 ml @ 142.5 mls/ hr Q1H IVPB 01/24/17 11:30 01/24/17 12:29 Potassium Chloride (K-Dur) 40 meq THREE TIMES A DAY ORAL 01/24/17 10:30 02/23/17 10:29 Sodium Chloride 1,000 ml @ 50 mls/hr Q20H IV 01/23/17 13:15 02/18/17 12:59 01/24/17 10:13 CHINEDU OSORIO Jan 24, 2017 10:54
--- NOTE | 2017-01-24 10:58 | Nephrology Progress Note ---
Assessment/Plan Problem List: (1) Renal insufficiency (2) Anemia (3) Multiple myeloma (4) DM (diabetes mellitus) (5) Altered level of consciousness Assessment Severe Anemia, improved Proteinuria- HypoAlbuminemia- Low K- Low Na- MM- DMII- Plan stable- to Med surg- NS- medium CHO diet K supplement- 24 H urine Protein 1.6 grams monitor renal parameters- per consultants DC plaqnning Subjective ROS Limited/Unobtainable: No Constitutional: Reports: malaise Objective Objective Last 24 Hour Vital Signs Date Time Temp Pulse Resp B/P (MAP) Pulse Ox O2 Delivery O2 Flow Rate FiO2 01/24/17 08:00 98.5 80 19 131/70 98 Room Air 01/24/17 04:07 98.3 87 20 146/70 98 Room Air 01/23/17 16:00 98.6 83 19 141/74 98 Room Air 01/23/17 12:00 79 01/23/17 12:00 98.2 80 20 128/74 98 Room Air Intake and Output 01/24/17 01/25/17 19:00 07:00 # Voids 2 # Bowel Movements 1 Laboratory Tests 01/24/17 06:15: White Blood Count 3.0L, Red Blood Count 2.70L, Hemoglobin 8.1L, Hematocrit 24.8L , Mean Corpuscular Volume 92, Mean Corpuscular Hemoglobin 30.2, Mean Corpuscular Hemoglobin Concent 32.8, Red Cell Distribution Width 15.7H, Platelet Count 154, Mean Platelet Volume 5.3L, Neutrophils (%) (Auto) , Lymphocytes (%) (Auto) , Monocytes (%) (Auto) , Eosinophils (%) (Auto) , Basophils (%) (Auto) , Differential Total Cells Counted 100, Neutrophils % ( Manual) 72, Lymphocytes % (Manual) 18L, Monocytes % (Manual) 8, Eosinophils % ( Manual) 1, Basophils % (Manual) 1, Band Neutrophils 0, Platelet Estimate Adequate, Platelet Morphology Normal, Anisocytosis 1+, Sodium Level 139, Potassium Level 2.6*L, Chloride Level 106, Carbon Dioxide Level 23, Anion Gap 10 , Blood Urea Nitrogen 10, Creatinine 1.3, Estimat Glomerular Filtration Rate , Glucose Level 82, Calcium Level 8.5 Height (Feet): 5 Height (Inches): 6.00 Weight (Pounds): 135 Cardiovascular: normal rate Respiratory/Chest: decreased breath sounds Abdomen: soft Objective PE not changed SHWETHA GAMBOA Jan 24, 2017 10:57
[2017-01-24] MEDS ORDERED: cefTRIAXone 1 GM in D5W 55 ML IVPB SCH (11:00)
[2017-01-24] MEDS ORDERED: Potassium Chloride 20 MEQ in NS 275 ML IVPB SCH (11:30)
[2017-01-24 12:00] VITALS: BP 128/75
--- NOTE | 2017-01-24 12:05 | GI Progress Note ---
Assessment/Plan Problems: (1) OB + stool ICD Codes: R19.5 - Other fecal abnormalities SNOMED: 02291744, 372256649 (2) ? colon mass (3) Altered level of consciousness ICD Codes: R40.4 - Transient alteration of awareness SNOMED: 2556786 (4) DM (diabetes mellitus) ICD Codes: E11.9 - Type 2 diabetes mellitus without complications SNOMED: 98504102 (5) Multiple myeloma ICD Codes: C90.00 - Multiple myeloma not having achieved remission SNOMED: 992140014 (6) Anemia ICD Codes: D64.9 - Anemia, unspecified SNOMED: 711790078 Qualifiers: Qualified Codes: D64.9 - Anemia, unspecified (7) Encephalopathy ICD Codes: G93.40 - Encephalopathy, unspecified SNOMED: 54127726 Status: unchanged Status Narrative Discussed with Dr. Heller. Assessment/Plan stool ob>>> + x2>> CT reviewed EGD/colonoscopy cancelled today due to hypokalemia, will reschedule for tomorrow. d/w patient daughter monitor H&H, prn transfusions ppi fu CEA, labs Subjective Subjective limited Objective Last 24 Hour Vital Signs Date Time Temp Pulse Resp B/P (MAP) Pulse Ox O2 Delivery O2 Flow Rate FiO2 01/24/17 08:00 98.5 80 19 131/70 98 Room Air 01/24/17 04:07 98.3 87 20 146/70 98 Room Air 01/23/17 16:00 98.6 83 19 141/74 98 Room Air Intake and Output 01/24/17 01/25/17 19:00 07:00 # Voids 2 # Bowel Movements 1 Laboratory Tests Test 01/24/17 06:15 White Blood Count 3.0 K/UL (4.8-10.8) L Red Blood Count 2.70 M/UL (4.70-6.10) L Hemoglobin 8.1 G/DL (14.2-18.0) L Hematocrit 24.8 % (42.0-52.0) L Mean Corpuscular Volume 92 FL (80-99) Mean Corpuscular Hemoglobin 30.2 PG (27.0-31.0) Mean Corpuscular Hemoglobin Concent 32.8 G/DL (32.0-36.0) Red Cell Distribution Width 15.7 % (11.6-14.8) H Platelet Count 154 K/UL (150-450) Mean Platelet Volume 5.3 FL (6.5-10.1) L Neutrophils (%) (Auto) % (45.0-75.0) Lymphocytes (%) (Auto) % (20.0-45.0) Monocytes (%) (Auto) % (1.0-10.0) Eosinophils (%) (Auto) % (0.0-3.0) Basophils (%) (Auto) % (0.0-2.0) Differential Total Cells Counted 100 Neutrophils % (Manual) 72 % (45-75) Lymphocytes % (Manual) 18 % (20-45) L Monocytes % (Manual) 8 % (1-10) Eosinophils % (Manual) 1 % (0-3) Basophils % (Manual) 1 % (0-2) Band Neutrophils 0 % (0-8) Platelet Estimate Adequate Platelet Morphology Normal Anisocytosis 1+ Sodium Level 139 MMOL/L (136-145) Potassium Level 2.6 MMOL/L (3.5-5.1) *L Chloride Level 106 MMOL/L (98-107) Carbon Dioxide Level 23 MMOL/L (21-32) Anion Gap 10 mmol/L (5-15) Blood Urea Nitrogen 10 mg/dL (7-18) Creatinine 1.3 MG/DL (0.55-1.30) Estimat Glomerular Filtration Rate mL/min (>60) Glucose Level 82 MG/DL (74-106) Calcium Level 8.5 MG/DL (8.5-10.1) Height (Feet): 5 Height (Inches): 6.00 Weight (Pounds): 135 General Appearance: no apparent distress, alert, thin Cardiovascular: normal rate Respiratory/Chest: normal breath sounds, no respiratory distress Abdominal Exam: normal bowel sounds, non tender, soft Extremities: non-tender Kady Verma N.PRenzo Jan 24, 2017 12:05
[2017-01-24 16:00] VITALS: BP 132/72
--- NOTE | 2017-01-24 18:30 | General Progress Note ---
Assessment/Plan Assessment/Plan ASSESSMENT AND RECOMMENDATIONS: 1. Multiple myeloma. --> Was previously on Revlimid, which can potentially cause myelosuppression --> outpatient followup 2. 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 Continue to closely monitor. --> work up has been reviewed 3. Gastrointestinal bleed. egd/ colo scheduled for tmrw 4. Weakness, likely from multiple myeloma. Continue transfusion if hemoglobin level is below 7. 5. Possible colonic mass seen on A/P CT. GI service following. continue to closely monitor. 6. Hypokalemia Subjective Allergies: Coded Allergies: No Known Allergies (Unverified , 01/18/17) All Systems: reviewed and negative except above Subjective egd/colo scheduled for tomorrow, resting comfortably Objective Last 24 Hour Vital Signs Date Time Temp Pulse Resp B/P (MAP) Pulse Ox O2 Delivery O2 Flow Rate FiO2 01/24/17 16:00 99.0 88 19 132/72 99 Room Air 01/24/17 12:00 97.4 84 18 128/75 100 Room Air 01/24/17 08:00 98.5 80 19 131/70 98 Room Air 01/24/17 04:07 98.3 87 20 146/70 98 Room Air Intake and Output 01/24/17 01/25/17 19:00 07:00 # Voids 2 # Bowel Movements 1 Laboratory Tests 01/24/17 06:15: White Blood Count 3.0L, Red Blood Count 2.70L, Hemoglobin 8.1L, Hematocrit 24.8L , Mean Corpuscular Volume 92, Mean Corpuscular Hemoglobin 30.2, Mean Corpuscular Hemoglobin Concent 32.8, Red Cell Distribution Width 15.7H, Platelet Count 154, Mean Platelet Volume 5.3L, Neutrophils (%) (Auto) , Lymphocytes (%) (Auto) , Monocytes (%) (Auto) , Eosinophils (%) (Auto) , Basophils (%) (Auto) , Differential Total Cells Counted 100, Neutrophils % ( Manual) 72, Lymphocytes % (Manual) 18L, Monocytes % (Manual) 8, Eosinophils % ( Manual) 1, Basophils % (Manual) 1, Band Neutrophils 0, Platelet Estimate Adequate, Platelet Morphology Normal, Anisocytosis 1+, Sodium Level 139, Potassium Level 2.6*L, Chloride Level 106, Carbon Dioxide Level 23, Anion Gap 10 , Blood Urea Nitrogen 10, Creatinine 1.3, Estimat Glomerular Filtration Rate , Glucose Level 82, Calcium Level 8.5 Height (Feet): 5 Height (Inches): 6.00 Weight (Pounds): 135 General Appearance: no apparent distress EENT: normal ENT inspection Neck: normal alignment Cardiovascular: regular rhythm Respiratory/Chest: chest wall non-tender Extremities: non-tender Jose Luis Deluna Jan 24, 2017 18:30
[2017-01-24 20:00] VITALS: BP 133/63
--- NOTE | 2017-01-24 21:51 | General Progress Note ---
Assessment/Plan Problem List: (1) CHF (congestive heart failure) ICD Codes: I50.9 - Heart failure, unspecified SNOMED: 30326940 Qualifiers: Qualified Codes: I50.9 - Heart failure, unspecified (2) Anemia ICD Codes: D64.9 - Anemia, unspecified SNOMED: 768254726 Qualifiers: Qualified Codes: D64.9 - Anemia, unspecified (3) Multiple myeloma ICD Codes: C90.00 - Multiple myeloma not having achieved remission SNOMED: 313902098 (4) DM (diabetes mellitus) ICD Codes: E11.9 - Type 2 diabetes mellitus without complications SNOMED: 63748542 (5) Altered level of consciousness ICD Codes: R40.4 - Transient alteration of awareness SNOMED: 8513294 (6) Renal insufficiency ICD Codes: N28.9 - Disorder of kidney and ureter, unspecified SNOMED: 074835371, 291692785 Status: progressing Assessment/Plan MM poor prognosis needs to go to snf colonscopy cancelled due to low k k is replaced needs pt/ot deconditioned severe anemia due to mm transfusion per heme/onc chf asymptomatic Subjective ROS Limited/Unobtainable: Yes Allergies: Coded Allergies: No Known Allergies (Unverified , 01/18/17) Objective Last 24 Hour Vital Signs Date Time Temp Pulse Resp B/P (MAP) Pulse Ox O2 Delivery O2 Flow Rate FiO2 01/24/17 20:00 99.3 84 20 133/63 Room Air 01/24/17 16:00 99.0 88 19 132/72 99 Room Air 01/24/17 12:00 97.4 84 18 128/75 100 Room Air 01/24/17 08:00 98.5 80 19 131/70 98 Room Air 01/24/17 04:07 98.3 87 20 146/70 98 Room Air Intake and Output 01/24/17 01/25/17 19:00 07:00 Intake Total 770 ml 100 ml Balance 770 ml 100 ml Intake Oral 120 ml IV Total 650 ml 100 ml # Voids 3 # Bowel Movements 1 Laboratory Tests 01/24/17 06:15: White Blood Count 3.0L, Red Blood Count 2.70L, Hemoglobin 8.1L, Hematocrit 24.8L , Mean Corpuscular Volume 92, Mean Corpuscular Hemoglobin 30.2, Mean Corpuscular Hemoglobin Concent 32.8, Red Cell Distribution Width 15.7H, Platelet Count 154, Mean Platelet Volume 5.3L, Neutrophils (%) (Auto) , Lymphocytes (%) (Auto) , Monocytes (%) (Auto) , Eosinophils (%) (Auto) , Basophils (%) (Auto) , Differential Total Cells Counted 100, Neutrophils % ( Manual) 72, Lymphocytes % (Manual) 18L, Monocytes % (Manual) 8, Eosinophils % ( Manual) 1, Basophils % (Manual) 1, Band Neutrophils 0, Platelet Estimate Adequate, Platelet Morphology Normal, Anisocytosis 1+, Sodium Level 139, Potassium Level 2.6*L, Chloride Level 106, Carbon Dioxide Level 23, Anion Gap 10 , Blood Urea Nitrogen 10, Creatinine 1.3, Estimat Glomerular Filtration Rate , Glucose Level 82, Calcium Level 8.5 Height (Feet): 5 Height (Inches): 6.00 Weight (Pounds): 135 Cardiovascular: normal rate Respiratory/Chest: lungs clear Abdomen: soft Parth Gallo MD Jan 24, 2017 21:51
[2017-01-25] VITALS (12 sets, daily range): BP systolic 95–130; BP diastolic 41–73
[2017-01-25 06:40] LABS: MEAN CORPUSCULAR HGB CONC 32.7 G/DL (32.0-36.0); MEAN CORPUSCULAR VOLUME 92 FL (80-99); MEAN PLATELET VOLUME 5.6 FL (6.5-10.1); PLATELET COUNT 178 K/UL (150-450); RED CELL DISTRIBUTION WIDTH 15.7 % (11.6-14.8); WHITE BLOOD COUNT 2.8 K/UL (4.8-10.8)
[2017-01-25 07:01] LABS: ALANINE AMINOTRANSFERASE 14 U/L (12-78); ALBUMIN/GLOBULIN RATIO 0.3 (1.0-2.7); ANION GAP 8 mmol/L (5-15); ASPARTATE AMINO TRANSFERASE 41 U/L (15-37); CALCIUM 8.6 MG/DL (8.5-10.1); CARBON DIOXIDE 23 MMOL/L (21-32); CHLORIDE 108 MMOL/L (98-107); CREATININE 1.3 MG/DL (0.55-1.30); MAGNESIUM 1.8 MG/DL (1.8-2.4); PHOSPHORUS 2.2 MG/DL (2.5-4.9); POTASSIUM 3.9 MMOL/L (3.5-5.1); SODIUM 139 MMOL/L (136-145); TOTAL PROTEIN 7.9 G/DL (6.4-8.2)
[2017-01-25] MEDS ORDERED: fentaNYL 100 mcg/2 mL IV ONE (07:30)
[2017-01-25] MEDS ORDERED: Midazolam 2mg/2ml Inj ONE (07:30)
[2017-01-25] MEDS ORDERED: LR 1000ml ONE (07:30)
[2017-01-25] MEDS ORDERED: Propofol 200mg/20ml IV ONE (07:30)
[2017-01-25] MEDS ORDERED: NS 500ML IV ONE (08:00)
[2017-01-25] MEDS ORDERED: LR 1000ml 1,000 ML IVLG SCH (08:08)
--- NOTE | 2017-01-25 08:11 | Anethesia Preoperative Eval ---
Anesthesia Pre-op PMH/ROS General Date of Evaluation: Jan 25, 2017 Time of Evaluation: 07:55 ASA Score: ASA 2 Mallampati Score Class I : Soft palate, uvula, fauces, pillars visible Class II: Soft palate, uvula, fauces visible Class III: Soft palate, base of uvula visible Class IV: Only hard plate visible Mallampati Classification: Class II Surgeon: Arron Diagnosis: GI Bleed Surgical Procedure: EGD Anesthesia History: none Allergies: Coded Allergies: No Known Allergies (Unverified , 01/18/17) Medications: see eMAR Anesthesia Pre-op Phys. Exam Physician Exam Last Vital Signs Date Time Temp Pulse Resp B/P (MAP) Pulse Ox O2 Delivery O2 Flow Rate FiO2 01/25/17 08:05 98.0 80 19 95/55 99 01/25/17 04:00 Room Air Constitutional: NAD Neurologic: CN 2-12 intact Cardiovascular: RRR Respiratory: CTA Gastrointestinal: S/NT/ND Airway Exam Mallampati Score: Class II MO: full ROM: full Anesthesia Pre-op A/P Labs Hematology Test 01/25/17 06:00 White Blood Count 2.8 K/UL (4.8-10.8) L Red Blood Count 2.80 M/UL (4.70-6.10) L Hemoglobin 8.4 G/DL (14.2-18.0) L Hematocrit 25.6 % (42.0-52.0) L Mean Corpuscular Volume 92 FL (80-99) Mean Corpuscular Hemoglobin 30.0 PG (27.0-31.0) Mean Corpuscular Hemoglobin Concent 32.7 G/DL (32.0-36.0) Red Cell Distribution Width 15.7 % (11.6-14.8) H Platelet Count 178 K/UL (150-450) Mean Platelet Volume 5.6 FL (6.5-10.1) L Neutrophils (%) (Auto) % (45.0-75.0) Lymphocytes (%) (Auto) % (20.0-45.0) Monocytes (%) (Auto) % (1.0-10.0) Eosinophils (%) (Auto) % (0.0-3.0) Basophils (%) (Auto) % (0.0-2.0) Neutrophils % (Manual) Pending Lymphocytes % (Manual) Pending Platelet Estimate Pending Platelet Morphology Pending Chemistry Test 01/25/17 06:00 Sodium Level 139 MMOL/L (136-145) Potassium Level 3.9 MMOL/L (3.5-5.1) Chloride Level 108 MMOL/L (98-107) H Carbon Dioxide Level 23 MMOL/L (21-32) Anion Gap 8 mmol/L (5-15) Blood Urea Nitrogen 9 mg/dL (7-18) Creatinine 1.3 MG/DL (0.55-1.30) Estimat Glomerular Filtration Rate mL/min (>60) Glucose Level 79 MG/DL (74-106) Calcium Level 8.6 MG/DL (8.5-10.1) Phosphorus Level 2.2 MG/DL (2.5-4.9) L Magnesium Level 1.8 MG/DL (1.8-2.4) Total Bilirubin 0.4 MG/DL (0.2-1.0) Aspartate Amino Transf (AST/SGOT) 41 U/L (15-37) H Alanine Aminotransferase (ALT/SGPT) 14 U/L (12-78) Alkaline Phosphatase 82 U/L (46-116) Total Protein 7.9 G/DL (6.4-8.2) Albumin 1.9 G/DL (3.4-5.0) L Globulin 6.0 g/dL Albumin/Globulin Ratio 0.3 (1.0-2.7) L Risk Assessment & Plan Plan: MAC Status Change Before Surgery: No Pre-Antibiotics Given Within 1 Hr of Incision: Levi Dobson M.D. Jan 25, 2017 08:11
--- NOTE | 2017-01-25 08:13 | Immediate Post-Op Evaluation ---
Immediate Post-Op Evalulation Immediate Post-Op Evalulation Procedure: EGD Date of Evaluation: Jan 25, 2017 Time of Evaluation: 09:30 IV Fluids: 200 Blood Products: 0 Estimated Blood Loss: 0 Urinary Output: 0 Blood Pressure Systolic: 154 Blood Pressure Diastolic: 64 Pulse Rate: 73 Respiratory Rate: 16 O2 Sat by Pulse Oximetry: 99 Temperature (Fahrenheit): 98 Pain Score (1-10): 0 Nausea: No Vomiting: No Patient Status: awake, patent Hydration Status: adequate Given Within 1 Hr of Incision: Levi Dobson M.D. Jan 25, 2017 08:13
--- NOTE | 2017-01-25 08:14 | 48 Hour Post Anesthesia Eval ---
Post Anesthesia Evaluation Procedure: EGD Date of Evaluation: Jan 27, 2017 Time of Evaluation: 10:00 Blood Pressure Systolic: 156 0: 87 Pulse Rate: 85 Respiratory Rate: 18 Temperature (Fahrenheit): 97 O2 Sat by Pulse Oximetry: 99 Airway: patent Nausea: No Vomiting: No Hydration Status: adequate Mental Status/LOC: patient returned to baseline Follow-up care needed: patient intructions given Levi Arthur M.D. Jan 25, 2017 08:14
[2017-01-25] MEDS ORDERED: fentaNYL 100 mcg/2 mL IV PRN (08:15)
[2017-01-25] MEDS ORDERED: Metoclopramide 10mg/2ml Inj IVP PRN (08:15)
[2017-01-25] MEDS ORDERED: Midazolam 2mg/2ml Inj IVP PRN (08:15)
[2017-01-25] MEDS ORDERED: Ketorolac 30mg Inj IV PRN (08:15)
--- NOTE | 2017-01-25 08:26 | Pre-Procedure Note/Attestation ---
Pre-Procedure Note/Attestation Complete Prior to Procedure Planned Procedure: not applicable Procedure Narrative: esophagogastroduodenoscopy colonoscopy Indications for Procedure Pre-Operative Diagnosis: anemia, GIB Attestation I attest that I discussed the nature of the procedure; its benefits; risks and complications; and alternatives (and the risks and benefits of such alternatives ), prior to the procedure, with the patient (or the patient's legal reimbursement representative). I attest that, if there was a reasonable possibility of needing a blood transfusion, the patient (or the patient's legal reimbursement representative) was given the [facility] standardized written summary, pursuant to the [place] Blood Safety Act ([place] Health and Safety Code # 1645, as amended). I attest that I re-evaluated the patient just prior to the surgery and that there has been no change in the patient's H&P, except as documented below: EMILIA PRASAD Jan 25, 2017 08:26
[2017-01-25 08:27] LABS: BAND NEUTROPHILS % (MANUAL) 0 % (0-8); BASOPHILS % (MANUAL) 1 % (0-2); EOSINOPHILS % (MANUAL) 2 % (0-3); HYPOCHROMASIA 2+; LYMPHOCYTES % (MANUAL) 15 % (20-45); NEUTROPHILS % (MANUAL) 69 % (45-75); PLATELET ESTIMATE ADEQUATE; TOTAL CELLS COUNTED 100
[2017-01-25 08:28] LABS: ANISOCYTOSIS 1+; PLATELET MORPHOLOGY NORMAL
--- NOTE | 2017-01-25 09:18 | Endoscopy Procedure Note ---
Endoscopy Procedure Note Indication for Procedure: anemia Procedures Performed: EGD, colonoscopy Operative Findings/Diagnosis: large colon polyp Specimen: yes Pt Tolerated Procedure Well: Yes Estimated Blood Loss: none Anesthesiologist: see chart Anesthesia: MAC Implant(s) used?: No 50 yrs or older w/o bx or poly: Not Applicable 10yrs. F/U not recommended: Not Applicable EMILIA PRASAD Jan 25, 2017 09:18
[2017-01-25] MEDS ORDERED: Potassium Phosphate 30 MM in NS 275 ML IV ONE (11:30)
--- NOTE | 2017-01-25 12:06 | Infectious Diseases Prog Note ---
Assessment/Plan Assessment/Plan A. Sepsis, SIRS resolved Severe anemia Multiple myeloma DM Cholelithiasis Diverticulosis Fatty liver colon mass, polyp P: Observe off antibiotic Plan per GI specialist Subjective ROS Limited/Unobtainable: Yes Constitutional: Reports: no symptoms Respiratory: Reports: no symptoms Cardiovascular: Reports: no symptoms Gastrointestinal/Abdominal: Reports: diarrhea Genitourinary: Reports: no symptoms Allergies: Coded Allergies: No Known Allergies (Unverified , 01/18/17) Objective Vital Signs Last 24 Hour Vital Signs Date Time Temp Pulse Resp B/P (MAP) Pulse Ox O2 Delivery O2 Flow Rate FiO2 01/25/17 11: 97.9 80 20 130/68 99 01/25/17 09:40 98.0 65 17 103/41 97 Room Air 01/25/17 09:30 66 18 104/46 97 Room Air 01/25/17 09:20 64 16 98/45 97 Room Air 01/25/17 09:15 66 19 100/42 98 Room Air 01/25/17 09:10 63 17 108/49 100 Nasal Cannula 3.0 01/25/17 09:05 98.4 64 18 109/49 100 Nasal Cannula 3.0 01/25/17 08:14 85 18 99 01/25/17 08:13 73 16 99 01/25/17 08:05 98.0 80 19 95/55 99 01/25/17 04:00 98.8 78 20 121/58 100 Room Air 01/25/17 04:00 100 Room Air 01/25/17 00:00 98.2 84 20 128/73 98 Room Air 01/25/17 00:00 98 Room Air 01/24/17 20:00 99 Room Air 01/24/17 20:00 99.3 84 20 133/63 Room Air 01/24/17 16:00 99.0 88 19 132/72 99 Room Air Height (Feet): 5 Height (Inches): 5.00 Weight (Pounds): 135 General Appearance: no acute distress HEENT: mucous membranes moist Respiratory/Chest: lungs clear Cardiovascular: normal rate Abdomen: soft, non tender Extremities: no edema Neurologic/Psychiatric: alert, oriented x 3, responsive Laboratory Tests Test 01/25/17 06:00 White Blood Count 2.8 K/UL (4.8-10.8) L Red Blood Count 2.80 M/UL (4.70-6.10) L Hemoglobin 8.4 G/DL (14.2-18.0) L Hematocrit 25.6 % (42.0-52.0) L Mean Corpuscular Volume 92 FL (80-99) Mean Corpuscular Hemoglobin 30.0 PG (27.0-31.0) Mean Corpuscular Hemoglobin Concent 32.7 G/DL (32.0-36.0) Red Cell Distribution Width 15.7 % (11.6-14.8) H Platelet Count 178 K/UL (150-450) Mean Platelet Volume 5.6 FL (6.5-10.1) L Neutrophils (%) (Auto) % (45.0-75.0) Lymphocytes (%) (Auto) % (20.0-45.0) Monocytes (%) (Auto) % (1.0-10.0) Eosinophils (%) (Auto) % (0.0-3.0) Basophils (%) (Auto) % (0.0-2.0) Differential Total Cells Counted 100 Neutrophils % (Manual) 69 % (45-75) Lymphocytes % (Manual) 15 % (20-45) L Monocytes % (Manual) 13 % (1-10) H Eosinophils % (Manual) 2 % (0-3) Basophils % (Manual) 1 % (0-2) Band Neutrophils 0 % (0-8) Platelet Estimate Adequate Platelet Morphology Normal Hypochromasia 2+ Anisocytosis 1+ Sodium Level 139 MMOL/L (136-145) Potassium Level 3.9 MMOL/L (3.5-5.1) Chloride Level 108 MMOL/L (98-107) H Carbon Dioxide Level 23 MMOL/L (21-32) Anion Gap 8 mmol/L (5-15) Blood Urea Nitrogen 9 mg/dL (7-18) Creatinine 1.3 MG/DL (0.55-1.30) Estimat Glomerular Filtration Rate mL/min (>60) Glucose Level 79 MG/DL (74-106) Calcium Level 8.6 MG/DL (8.5-10.1) Phosphorus Level 2.2 MG/DL (2.5-4.9) L Magnesium Level 1.8 MG/DL (1.8-2.4) Total Bilirubin 0.4 MG/DL (0.2-1.0) Aspartate Amino Transf (AST/SGOT) 41 U/L (15-37) H Alanine Aminotransferase (ALT/SGPT) 14 U/L (12-78) Alkaline Phosphatase 82 U/L (46-116) Total Protein 7.9 G/DL (6.4-8.2) Albumin 1.9 G/DL (3.4-5.0) L Globulin 6.0 g/dL Albumin/Globulin Ratio 0.3 (1.0-2.7) L Current Medications Medications (Trade) Dose Ordered Sig/Ashli Route PRN Reason Start Time Stop Time Status Last Admin Dose Admin Acetaminophen (Tylenol) 650 mg Q4H PRN ORAL Mild Pain/Temp > 100.5 01/23/17 16:00 02/18/17 00:00 Fentanyl Citrate (Sublimaze 100 mcg/2 mL) 25 mcg Q10M PRN IV Moderate Pain (Pain Scale 4-6) 01/25/17 08:15 01/25/17 13:00 Ketorolac Tromethamine (Toradol 30mg) 30 mg Q1H PRN IV Severe Breakthru Pain (>7) 01/25/17 08:15 01/25/17 13:00 Metoclopramide HCl (Reglan) 10 mg Q1H PRN IVP Nausea & Vomiting 01/25/17 08:15 01/25/17 13:00 Midazolam HCl (Versed 2mg/2ml vial) 1 mg Q15M PRN IVP For Anxiety 01/25/17 08:15 01/25/17 13:00 Ondansetron HCl (Zofran) 4 mg Q1H PRN IVP Nausea & Vomiting 01/25/17 08:15 01/25/17 13:00 Pantoprazole (Protonix) 40 mg DAILY ORAL 01/24/17 09:00 02/19/17 08:59 01/24/17 10:12 Potassium Phosphate 30 mm/ Sodium Chloride 285 ml @ 47.5 mls/hr ONCE ONCE IV 01/25/17 11:30 01/25/17 17:29 01/25/17 11:17 Potassium Chloride (K-Dur) 40 meq THREE TIMES A DAY ORAL 01/24/17 10:30 02/23/17 10:29 01/24/17 18:47 CHINEDU OSORIO Jan 25, 2017 12:06
--- NOTE | 2017-01-25 12:27 | Consultation ---
History of Present Illness General Chief Complaint: Altered Level of Consciousness Referring physician: BENJI ZAZUETA Reason for Consultation: ANEMIA Present Illness HPI 81 year old male with multiple medical comorbidities as noted below presented with multiple falls / lethargy. During admission had CT scan which demonstrated large distal transverse colon mass. Recently had colonoscopy which demonstrated large polyp in distal transverse colon which could not be resected endoscopically. Surgery called to evaluate. When seen at bedside patient states he is well. no complaints at this time. does not have known history of this mass. does feel constipated at times. unsure about blood in stool. Allergies: Coded Allergies: No Known Allergies (Unverified , 01/18/17) Medication History Scheduled Dexamethasone (Dexamethasone), 4 MG PO DAILY, (Reported) Tamsulosin Hcl (Tamsulosin Hcl*), 0.4 MG ORAL BEDTIME, (Reported) Miscellaneous Medications Fentanyl 50MCG Patch (Fentanyl 50MCG Patch*), 1 PATCH TOPIC, (Reported) Hydromorphone Hcl/Pf (Hydromorphone 2 Mg/Ml Syringe*), 2 MG PO, (Reported) Lenalidomide (Revlimid), 15 MG PO, (Reported) Patient History History Provided By: Patient, Medical Record Healthcare decision maker N Resuscitation status Full Code Advanced Directive on File Past Medical/Surgical History Past Medical/Surgical History: (1) Anemia (2) Multiple myeloma (3) DM (diabetes mellitus) (4) Altered level of consciousness (5) Renal insufficiency (6) CHF (congestive heart failure) (7) Gallstone (8) OB + stool (9) ? colon mass (10) Encephalopathy Review of Systems Constitutional: Denies: no symptoms, see HPI, chills, sweats, fever, malaise, weakness, other Eye: Denies: no symptoms, see HPI, eye pain, blurred vision, tearing, double vision, nose pain, nose congestion, acuity changes, discharge, other ENT: Denies: no symptoms, see HPI, ear pain, ear discharge, nose pain, nose congestion, throat pain, throat swelling, mouth pain, hearing loss, nasal discharge, other Respiratory: Denies: no symptoms, see HPI, cough, orthopnea, shortness of breath, stridor, wheezing, ASHLEY, sputum, other Cardiovascular: Denies: no symptoms, see HPI, chest pain, edema, palpitations, syncope, PND, other Gastrointestinal: Denies: no symptoms, see HPI, abdominal pain, constipation, diarrhea, nausea, vomiting, melena, hematemesis, other Genitourinary: Denies: no symptoms, see HPI, discharge, dysuria, frequency, hematuria, pain, retention, incontinence, urgency, vag bleed/dc, other Musculoskeletal: Denies: no symptoms, see HPI, back pain, gout, joint pain, joint swelling, muscle pain, muscle stiffness, other Skin: Denies: no symptoms, see HPI, rash, change in color, change in hair/nails , dryness, lesions, other Psychiatric: Denies: no symptoms, see HPI, prior hx, anxiety, depressed feelings, emotional problems, SI, HI, hallucinations, other Neurological: Denies: no symptoms, see HPI, headache, numbness, paresthesia, seizure, tingling, tremors, focal weakness, syncope, dizziness, other Endocrine: Denies: no symptoms, see HPI, excessive sweating, flushing, intolerance to temperature, increased thirst, increased urine, unexplained weight loss, other Hematologic/Lymphatic: Denies: no symptoms, see HPI, anemia, blood clots, easy bleeding, easy bruising, swollen glands, diathesis, other All Other Systems: negative except mentioned in HPI Physical Exam General Appearance: no apparent distress, alert Lines, tubes and drains: peripheral HEENT: mucous membranes moist, PERRL Neck: normal inspection Respiratory/Chest: normal breath sounds, no respiratory distress, no accessory muscle use Cardiovascular/Chest: normal peripheral pulses, normal rate Abdomen: normal bowel sounds, non tender, soft, no organomegaly, no mass Extremities: normal inspection Skin Exam: normal pigmentation, warm/dry Neurologic: alert, oriented x 3, responsive Last 24 Hour Vital Signs Date Time Temp Pulse Resp B/P (MAP) Pulse Ox O2 Delivery O2 Flow Rate FiO2 01/25/17 11:17 97.9 80 20 130/68 99 01/25/17 09:40 98.0 65 17 103/41 97 Room Air 01/25/17 09:30 66 18 104/46 97 Room Air 01/25/17 09:20 64 16 98/45 97 Room Air 01/25/17 09:15 66 19 100/42 98 Room Air 01/25/17 09:10 63 17 108/49 100 Nasal Cannula 3.0 01/25/17 09:05 98.4 64 18 109/49 100 Nasal Cannula 3.0 01/25/17 08:14 85 18 99 01/25/17 08:13 73 16 99 01/25/17 08:05 98.0 80 19 95/55 99 01/25/17 04:00 98.8 78 20 121/58 100 Room Air 01/25/17 04:00 100 Room Air 01/25/17 00:00 98.2 84 20 128/73 98 Room Air 01/25/17 00:00 98 Room Air 01/24/17 20:00 99 Room Air 01/24/17 20:00 99.3 84 20 133/63 Room Air 01/24/17 16:00 99.0 88 19 132/72 99 Room Air Intake and Output 01/25/17 01/26/17 19:00 07:00 Intake Total 150 ml Output Total 0 ml Balance 150 ml IV Total 150 ml Estimated Blood Loss 0 ml Laboratory Tests Test 01/25/17 06:00 White Blood Count 2.8 K/UL (4.8-10.8) L Red Blood Count 2.80 M/UL (4.70-6.10) L Hemoglobin 8.4 G/DL (14.2-18.0) L Hematocrit 25.6 % (42.0-52.0) L Mean Corpuscular Volume 92 FL (80-99) Mean Corpuscular Hemoglobin 30.0 PG (27.0-31.0) Mean Corpuscular Hemoglobin Concent 32.7 G/DL (32.0-36.0) Red Cell Distribution Width 15.7 % (11.6-14.8) H Platelet Count 178 K/UL (150-450) Mean Platelet Volume 5.6 FL (6.5-10.1) L Neutrophils (%) (Auto) % (45.0-75.0) Lymphocytes (%) (Auto) % (20.0-45.0) Monocytes (%) (Auto) % (1.0-10.0) Eosinophils (%) (Auto) % (0.0-3.0) Basophils (%) (Auto) % (0.0-2.0) Differential Total Cells Counted 100 Neutrophils % (Manual) 69 % (45-75) Lymphocytes % (Manual) 15 % (20-45) L Monocytes % (Manual) 13 % (1-10) H Eosinophils % (Manual) 2 % (0-3) Basophils % (Manual) 1 % (0-2) Band Neutrophils 0 % (0-8) Platelet Estimate Adequate Platelet Morphology Normal Hypochromasia 2+ Anisocytosis 1+ Sodium Level 139 MMOL/L (136-145) Potassium Level 3.9 MMOL/L (3.5-5.1) Chloride Level 108 MMOL/L (98-107) H Carbon Dioxide Level 23 MMOL/L (21-32) Anion Gap 8 mmol/L (5-15) Blood Urea Nitrogen 9 mg/dL (7-18) Creatinine 1.3 MG/DL (0.55-1.30) Estimat Glomerular Filtration Rate mL/min (>60) Glucose Level 79 MG/DL (74-106) Calcium Level 8.6 MG/DL (8.5-10.1) Phosphorus Level 2.2 MG/DL (2.5-4.9) L Magnesium Level 1.8 MG/DL (1.8-2.4) Total Bilirubin 0.4 MG/DL (0.2-1.0) Aspartate Amino Transf (AST/SGOT) 41 U/L (15-37) H Alanine Aminotransferase (ALT/SGPT) 14 U/L (12-78) Alkaline Phosphatase 82 U/L (46-116) Total Protein 7.9 G/DL (6.4-8.2) Albumin 1.9 G/DL (3.4-5.0) L Globulin 6.0 g/dL Albumin/Globulin Ratio 0.3 (1.0-2.7) L Height (Feet): 5 Height (Inches): 5.00 Weight (Pounds): 135 Medications Current Medications Medications (Trade) Dose Ordered Sig/Ashli Route PRN Reason Start Time Stop Time Status Last Admin Dose Admin Acetaminophen (Tylenol) 650 mg Q4H PRN ORAL Mild Pain/Temp > 100.5 01/23/17 16:00 02/18/17 00:00 Fentanyl Citrate (Sublimaze 100 mcg/2 mL) 25 mcg Q10M PRN IV Moderate Pain (Pain Scale 4-6) 01/25/17 08:15 01/25/17 13:00 Ketorolac Tromethamine (Toradol 30mg) 30 mg Q1H PRN IV Severe Breakthru Pain (>7) 01/25/17 08:15 01/25/17 13:00 Metoclopramide HCl (Reglan) 10 mg Q1H PRN IVP Nausea & Vomiting 01/25/17 08:15 01/25/17 13:00 Midazolam HCl (Versed 2mg/2ml vial) 1 mg Q15M PRN IVP For Anxiety 01/25/17 08:15 01/25/17 13:00 Ondansetron HCl (Zofran) 4 mg Q1H PRN IVP Nausea & Vomiting 01/25/17 08:15 01/25/17 13:00 Pantoprazole (Protonix) 40 mg DAILY ORAL 01/24/17 09:00 02/19/17 08:59 01/24/17 10:12 Potassium Phosphate 30 mm/ Sodium Chloride 285 ml @ 47.5 mls/hr ONCE ONCE IV 01/25/17 11:30 01/25/17 17:29 01/25/17 11:17 Potassium Chloride (K-Dur) 40 meq THREE TIMES A DAY ORAL 01/24/17 10:30 02/23/17 10:29 01/24/17 18:47 Assessment/Plan Problem List: (1) Polyp of transverse colon Assessment & Plan: 81 M with large possible near obstructing distal transverse colon polyp. afebrile, HD stable, multiple medical comorbidities, MM. discussed case and findings with patient. recommended surgical excision of large tumor for pathology. given size could potentially become obstructive requiring emergent high risk surgery in this patient with multiple medical comorbidities. patient expressed understanding and requested time to discuss with family and daughter. okay for full liquids for now will follow up with patient and family later this afternoon or tomorrow. thank you for this consultation. ICD Codes: D12.3 - Benign neoplasm of transverse colon SNOMED: [id number] Qualifiers: Qualified Codes: D12.3 - Benign neoplasm of transverse colon Status: stable Nicholas Danielle Jan 25, 2017 12:27
--- NOTE | 2017-01-25 13:28 | Nephrology Progress Note ---
Assessment/Plan Problem List: (1) Renal insufficiency (2) Anemia (3) Multiple myeloma (4) DM (diabetes mellitus) (5) Altered level of consciousness Assessment Severe Anemia, improved Proteinuria- HypoAlbuminemia- Low K- Low Na- MM- DMII- Plan stable- NS- medium CHO diet K supplement- 24 H urine Protein 1.6 grams monitor renal parameters- per consultants DC plaqnning Subjective ROS Limited/Unobtainable: No Constitutional: Reports: malaise Objective Objective Last 24 Hour Vital Signs Date Time Temp Pulse Resp B/P (MAP) Pulse Ox O2 Delivery O2 Flow Rate FiO2 01/25/17 11:17 97.9 80 20 130/68 99 01/25/17 09:40 98.0 65 17 103/41 97 Room Air 01/25/17 09:30 66 18 104/46 97 Room Air 01/25/17 09:20 64 16 98/45 97 Room Air 01/25/17 09:15 66 19 100/42 98 Room Air 01/25/17 09:10 63 17 108/49 100 Nasal Cannula 3.0 01/25/17 09:05 98.4 64 18 109/49 100 Nasal Cannula 3.0 01/25/17 08:14 85 18 99 01/25/17 08:13 73 16 99 01/25/17 08:05 98.0 80 19 95/55 99 01/25/17 04:00 98.8 78 20 121/58 100 Room Air 01/25/17 04:00 100 Room Air 01/25/17 00:00 98.2 84 20 128/73 98 Room Air 01/25/17 00:00 98 Room Air 01/24/17 20:00 99 Room Air 01/24/17 20:00 99.3 84 20 133/63 Room Air 01/24/17 16:00 99.0 88 19 132/72 99 Room Air Intake and Output 01/25/17 01/26/17 19:00 07:00 Intake Total 150 ml Output Total 0 ml Balance 150 ml IV Total 150 ml Estimated Blood Loss 0 ml Laboratory Tests 01/25/17 06:00: White Blood Count 2.8L, Red Blood Count 2.80L, Hemoglobin 8.4L, Hematocrit 25.6L , Mean Corpuscular Volume 92, Mean Corpuscular Hemoglobin 30.0, Mean Corpuscular Hemoglobin Concent 32.7, Red Cell Distribution Width 15.7H, Platelet Count 178, Mean Platelet Volume 5.6L, Neutrophils (%) (Auto) , Lymphocytes (%) (Auto) , Monocytes (%) (Auto) , Eosinophils (%) (Auto) , Basophils (%) (Auto) , Differential Total Cells Counted 100, Neutrophils % ( Manual) 69, Lymphocytes % (Manual) 15L, Monocytes % (Manual) 13H, Eosinophils % (Manual) 2, Basophils % (Manual) 1, Band Neutrophils 0, Platelet Estimate Adequate, Platelet Morphology Normal, Hypochromasia 2+, Anisocytosis 1+, Sodium Level 139, Potassium Level 3.9, Chloride Level 108H, Carbon Dioxide Level 23, Anion Gap 8, Blood Urea Nitrogen 9, Creatinine 1.3, Estimat Glomerular Filtration Rate , Glucose Level 79, Calcium Level 8.6, Phosphorus Level 2.2L, Magnesium Level 1.8, Total Bilirubin 0.4, Aspartate Amino Transf (AST/SGOT) 41H , Alanine Aminotransferase (ALT/SGPT) 14, Alkaline Phosphatase 82, Total Protein 7.9, Albumin 1.9L, Globulin 6.0, Albumin/Globulin Ratio 0.3L Height (Feet): 5 Height (Inches): 5.00 Weight (Pounds): 135 General Appearance: no apparent distress Objective PE not changed SHWETHA GAMBOA Jan 25, 2017 13:28
--- NOTE | 2017-01-25 13:45 | Procedure Note ---
DATE OF PROCEDURE: 01/25/2017 SURGEON: Bradly Heller M.D. ANESTHESIOLOGIST: See the anesthesiologist's note. PROCEDURE: Upper endoscopy biopsy and colonoscopy biopsy with snare polypectomy. INSTRUMENT: Olympus adult flexible upper endoscope and colonoscope. INDICATION: Anemia, stool OB positive. A large filling defect seen in the CT scan of the colon. REASON FOR PROCEDURE: The procedure, risks, benefits, and possible consequences, including hemorrhage, aspiration, perforation and infection, and alternative treatments, were explained to the patient/legal guardian by Dr. Bradly Heller and the patient/legal guardian understood and accepted these risks. PROCEDURE: After informed consent was obtained and the patient was adequately sedated, Olympus upper endoscope was advanced from mouth into second portion of the duodenum and retroflexion of rectum performed in the stomach. The patient has evidence of diffuse gastritis. Random biopsy from antrum and body was obtained to rule out H. pylori infection. The patient also has evidence of small hiatal hernia. At this time, the upper endoscope was retrieved and the patient was turned over for colonoscopy. First, a rectal exam performed showed positive for internal hemorrhoids and scope was advanced from rectum to the cecum documented by appendiceal orifice, ileocecal valve, and right upper quadrant palpation. Quality of prep was good. The patient had two polyps in the hepatic flexure area, pedunculated, measured roughly about 1.1 to 1.2 cm each removed with a snare polypectomy technique. There was a large polypoid lesion in the transverse colon. I would state maybe about 5 cm. At this point, we were not able to remove this with a colonoscope. It is too big. We biopsied and tattooed the area for future surgeries. The patient also has significant sigmoid diverticulosis. Retroflexion of rectum was performed showed evidence of internal hemorrhoids. The patient tolerated the procedure very well without complication. SUMMARY FINDINGS: 1. Gastritis, status post biopsy. 2. Small hiatal hernia. 3. Large colonic polyp, which was biopsied and tattooed for future surgeries. 4. Two other colonic polyps removed from hepatic flexure area. See above for details. 5. Diverticulosis. 6. Internal hemorrhoids. RECOMMENDATIONS: 1. Follow biopsy results. 2. Recommend surgical evaluation for removal of large polyp. I want to thank, Dr. Parth Gallo, for this kind referral. Bradly Heller M.D. DR: SONIA JOB#: [id number] CC: Parth Gallo M.D.; Fax#: [phone]
--- NOTE | 2017-01-25 15:49 | General Progress Note ---
Assessment/Plan Assessment/Plan ASSESSMENT AND RECOMMENDATIONS: 1. Multiple myeloma. --> Was previously on Revlimid, which can potentially cause myelosuppression --> outpatient followup 2. 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 Continue to closely monitor. --> work up has been reviewed 3. Colon mass, needs surgical resection, patient considering. 4. Hypokalemia Subjective Allergies: Coded Allergies: No Known Allergies (Unverified , 01/18/17) All Systems: reviewed and negative except above Subjective no events, s/p egd and colonoscopy Objective Last 24 Hour Vital Signs Date Time Temp Pulse Resp B/P (MAP) Pulse Ox O2 Delivery O2 Flow Rate FiO2 01/25/17 11: 97.9 80 20 130/68 99 01/25/17 09:40 98.0 65 17 103/41 97 Room Air 01/25/17 09:30 66 18 104/46 97 Room Air 01/25/17 09:20 64 16 98/45 97 Room Air 01/25/17 09:15 66 19 100/42 98 Room Air 01/25/17 09:10 63 17 108/49 100 Nasal Cannula 3.0 01/25/17 09:05 98.4 64 18 109/49 100 Nasal Cannula 3.0 01/25/17 08:14 85 18 99 01/25/17 08:13 73 16 99 01/25/17 08:05 98.0 80 19 95/55 99 01/25/17 04:00 98.8 78 20 121/58 100 Room Air 01/25/17 04:00 100 Room Air 01/25/17 00:00 98.2 84 20 128/73 98 Room Air 01/25/17 00:00 98 Room Air 01/24/17 20:00 99 Room Air 01/24/17 20:00 99.3 84 20 133/63 Room Air 01/24/17 16:00 99.0 88 19 132/72 99 Room Air Intake and Output 01/25/17 01/26/17 19:00 07:00 Intake Total 530 ml Output Total 0 ml Balance 530 ml Intake Oral 380 ml IV Total 150 ml Estimated Blood Loss 0 ml # Voids 1 # Bowel Movements 1 Laboratory Tests 01/25/17 06:00: White Blood Count 2.8L, Red Blood Count 2.80L, Hemoglobin 8.4L, Hematocrit 25.6L , Mean Corpuscular Volume 92, Mean Corpuscular Hemoglobin 30.0, Mean Corpuscular Hemoglobin Concent 32.7, Red Cell Distribution Width 15.7H, Platelet Count 178, Mean Platelet Volume 5.6L, Neutrophils (%) (Auto) , Lymphocytes (%) (Auto) , Monocytes (%) (Auto) , Eosinophils (%) (Auto) , Basophils (%) (Auto) , Differential Total Cells Counted 100, Neutrophils % ( Manual) 69, Lymphocytes % (Manual) 15L, Monocytes % (Manual) 13H, Eosinophils % (Manual) 2, Basophils % (Manual) 1, Band Neutrophils 0, Platelet Estimate Adequate, Platelet Morphology Normal, Hypochromasia 2+, Anisocytosis 1+, Sodium Level 139, Potassium Level 3.9, Chloride Level 108H, Carbon Dioxide Level 23, Anion Gap 8, Blood Urea Nitrogen 9, Creatinine 1.3, Estimat Glomerular Filtration Rate , Glucose Level 79, Calcium Level 8.6, Phosphorus Level 2.2L, Magnesium Level 1.8, Total Bilirubin 0.4, Aspartate Amino Transf (AST/SGOT) 41H , Alanine Aminotransferase (ALT/SGPT) 14, Alkaline Phosphatase 82, Total Protein 7.9, Albumin 1.9L, Globulin 6.0, Albumin/Globulin Ratio 0.3L Height (Feet): 5 Height (Inches): 5.00 Weight (Pounds): 135 General Appearance: no apparent distress EENT: PERRL/EOMI Neck: normal alignment Cardiovascular: normal peripheral pulses Respiratory/Chest: chest wall non-tender Extremities: non-tender Skin: normal pigmentation Jose Luis Deluna Jan 25, 2017 15:49
--- NOTE | 2017-01-25 19:22 | Cardiology Progress Note ---
Assessment/Plan Assessment/Plan 1. Altered level of consciousness, resolved, continue the current management, echo reveals normal LV systolic function. 2. Sinus tachycardia, resolved. 3. DM 4. Moderate MR. 5. Multiple Myeloma Subjective Subjective Not on the telemetry unit. Denies chest pain or SOB. Objective Last 24 Hour Vital Signs Date Time Temp Pulse Resp B/P (MAP) Pulse Ox O2 Delivery O2 Flow Rate FiO2 01/25/17 16:01 98.2 83 19 129/69 99 01/25/17 11:17 97.9 80 20 130/68 99 01/25/17 09:40 98.0 65 17 103/41 97 Room Air 01/25/17 09:30 66 18 104/46 97 Room Air 01/25/17 09:20 64 16 98/45 97 Room Air 01/25/17 09:15 66 19 100/42 98 Room Air 01/25/17 09:10 63 17 108/49 100 Nasal Cannula 3.0 01/25/17 09:05 98.4 64 18 109/49 100 Nasal Cannula 3.0 01/25/17 08:14 85 18 99 01/25/17 08:13 73 16 99 01/25/17 08:05 98.0 80 19 95/55 99 01/25/17 04:00 98.8 78 20 121/58 100 Room Air 01/25/17 04:00 100 Room Air 01/25/17 00:00 98.2 84 20 128/73 98 Room Air 01/25/17 00:00 98 Room Air 01/24/17 20:00 99 Room Air 01/24/17 20:00 99.3 84 20 133/63 Room Air Intake and Output 01/25/17 01/26/17 19:00 07:00 Intake Total 930 ml Output Total 0 ml Balance 930 ml Intake Oral 780 ml IV Total 150 ml Estimated Blood Loss 0 ml # Voids 1 # Bowel Movements 1 2D Echo: LVEF 55%, Mild LVH, LAE, Mod AR/MR, Grade I LVDD Laboratory Tests Test 01/25/17 06:00 White Blood Count 2.8 K/UL (4.8-10.8) L Red Blood Count 2.80 M/UL (4.70-6.10) L Hemoglobin 8.4 G/DL (14.2-18.0) L Hematocrit 25.6 % (42.0-52.0) L Mean Corpuscular Volume 92 FL (80-99) Mean Corpuscular Hemoglobin 30.0 PG (27.0-31.0) Mean Corpuscular Hemoglobin Concent 32.7 G/DL (32.0-36.0) Red Cell Distribution Width 15.7 % (11.6-14.8) H Platelet Count 178 K/UL (150-450) Mean Platelet Volume 5.6 FL (6.5-10.1) L Neutrophils (%) (Auto) % (45.0-75.0) Lymphocytes (%) (Auto) % (20.0-45.0) Monocytes (%) (Auto) % (1.0-10.0) Eosinophils (%) (Auto) % (0.0-3.0) Basophils (%) (Auto) % (0.0-2.0) Differential Total Cells Counted 100 Neutrophils % (Manual) 69 % (45-75) Lymphocytes % (Manual) 15 % (20-45) L Monocytes % (Manual) 13 % (1-10) H Eosinophils % (Manual) 2 % (0-3) Basophils % (Manual) 1 % (0-2) Band Neutrophils 0 % (0-8) Platelet Estimate Adequate Platelet Morphology Normal Hypochromasia 2+ Anisocytosis 1+ Sodium Level 139 MMOL/L (136-145) Potassium Level 3.9 MMOL/L (3.5-5.1) Chloride Level 108 MMOL/L (98-107) H Carbon Dioxide Level 23 MMOL/L (21-32) Anion Gap 8 mmol/L (5-15) Blood Urea Nitrogen 9 mg/dL (7-18) Creatinine 1.3 MG/DL (0.55-1.30) Estimat Glomerular Filtration Rate mL/min (>60) Glucose Level 79 MG/DL (74-106) Calcium Level 8.6 MG/DL (8.5-10.1) Phosphorus Level 2.2 MG/DL (2.5-4.9) L Magnesium Level 1.8 MG/DL (1.8-2.4) Total Bilirubin 0.4 MG/DL (0.2-1.0) Aspartate Amino Transf (AST/SGOT) 41 U/L (15-37) H Alanine Aminotransferase (ALT/SGPT) 14 U/L (12-78) Alkaline Phosphatase 82 U/L (46-116) Total Protein 7.9 G/DL (6.4-8.2) Albumin 1.9 G/DL (3.4-5.0) L Globulin 6.0 g/dL Albumin/Globulin Ratio 0.3 (1.0-2.7) L Objective General Appearance: no apparent distress, alert, GCS 15, non-toxic HEENT: normocephalic, atraumatic, bilateral eye PERRL, EOMI Neck: Negative JVD, carotid upstroke 2+ with no bruit. Respiratory: normal breath sounds, speaking full sentences Cardiovascular: regular rate, rhythm, normal S1S2, no murmurs, gallops or rubs. Gastrointestinal: normal bowel sounds, non tender, soft, non-distended, no guarding, no rebound Genitourinary: normal inspection, no CVA tenderness Musculoskeletal: No edema, clubbing or cyanosis. SILVA VALENZUELA Jan 25, 2017 19:22
--- NOTE | 2017-01-25 21:19 | General Progress Note ---
Assessment/Plan Problem List: (1) CHF (congestive heart failure) ICD Codes: I50.9 - Heart failure, unspecified SNOMED: 47779565 Qualifiers: Qualified Codes: I50.9 - Heart failure, unspecified (2) Anemia ICD Codes: D64.9 - Anemia, unspecified SNOMED: 516511997 Qualifiers: Qualified Codes: D64.9 - Anemia, unspecified (3) Multiple myeloma ICD Codes: C90.00 - Multiple myeloma not having achieved remission SNOMED: 582607351 (4) DM (diabetes mellitus) ICD Codes: E11.9 - Type 2 diabetes mellitus without complications SNOMED: 97620535 (5) Altered level of consciousness ICD Codes: R40.4 - Transient alteration of awareness SNOMED: 6593883 (6) Renal insufficiency ICD Codes: N28.9 - Disorder of kidney and ureter, unspecified SNOMED: 881049512, 081700364 Status: progressing Assessment/Plan MM poor prognosis needs to go to snf colonscopy cancelled due to low k k is replaced found very large polyp so dr perry asked for surgical consult to remove it definelty needs to go to snf afterwards not safe to go home Subjective ROS Limited/Unobtainable: Yes Constitutional: Reports: no symptoms Allergies: Coded Allergies: No Known Allergies (Unverified , 01/18/17) Objective Last 24 Hour Vital Signs Date Time Temp Pulse Resp B/P (MAP) Pulse Ox O2 Delivery O2 Flow Rate FiO2 01/25/17 20:23 98.6 70 18 128/70 98 Room Air 01/25/17 16:01 98.2 83 19 129/69 99 01/25/17 11:17 97.9 80 20 130/68 99 01/25/17 09:40 98.0 65 17 103/41 97 Room Air 01/25/17 09:30 66 18 104/46 97 Room Air 01/25/17 09:20 64 16 98/45 97 Room Air 01/25/17 09:15 66 19 100/42 98 Room Air 01/25/17 09:10 63 17 108/49 100 Nasal Cannula 3.0 01/25/17 09:05 98.4 64 18 109/49 100 Nasal Cannula 3.0 01/25/17 08:14 85 18 99 01/25/17 08:13 73 16 99 01/25/17 08:05 98.0 80 19 95/55 99 01/25/17 04:00 98.8 78 20 121/58 100 Room Air 01/25/17 04:00 100 Room Air 01/25/17 00:00 98.2 84 20 128/73 98 Room Air 01/25/17 00:00 98 Room Air Intake and Output 01/25/17 01/26/17 19:00 07:00 Intake Total 930 ml Output Total 0 ml Balance 930 ml Intake Oral 780 ml IV Total 150 ml Estimated Blood Loss 0 ml # Voids 1 # Bowel Movements 1 Laboratory Tests 01/25/17 06:00: White Blood Count 2.8L, Red Blood Count 2.80L, Hemoglobin 8.4L, Hematocrit 25.6L , Mean Corpuscular Volume 92, Mean Corpuscular Hemoglobin 30.0, Mean Corpuscular Hemoglobin Concent 32.7, Red Cell Distribution Width 15.7H, Platelet Count 178, Mean Platelet Volume 5.6L, Neutrophils (%) (Auto) , Lymphocytes (%) (Auto) , Monocytes (%) (Auto) , Eosinophils (%) (Auto) , Basophils (%) (Auto) , Differential Total Cells Counted 100, Neutrophils % ( Manual) 69, Lymphocytes % (Manual) 15L, Monocytes % (Manual) 13H, Eosinophils % (Manual) 2, Basophils % (Manual) 1, Band Neutrophils 0, Platelet Estimate Adequate, Platelet Morphology Normal, Hypochromasia 2+, Anisocytosis 1+, Sodium Level 139, Potassium Level 3.9, Chloride Level 108H, Carbon Dioxide Level 23, Anion Gap 8, Blood Urea Nitrogen 9, Creatinine 1.3, Estimat Glomerular Filtration Rate , Glucose Level 79, Calcium Level 8.6, Phosphorus Level 2.2L, Magnesium Level 1.8, Total Bilirubin 0.4, Aspartate Amino Transf (AST/SGOT) 41H , Alanine Aminotransferase (ALT/SGPT) 14, Alkaline Phosphatase 82, Total Protein 7.9, Albumin 1.9L, Globulin 6.0, Albumin/Globulin Ratio 0.3L Height (Feet): 5 Height (Inches): 5.00 Weight (Pounds): 135 Cardiovascular: normal rate Abdomen: soft Parth Gallo MD Jan 25, 2017 21:19
[2017-01-26] VITALS: BP 113/55
[2017-01-26 04:00] VITALS: BP 116/53
[2017-01-26 07:13] LABS: MEAN CORPUSCULAR HEMOGLOBIN 29.7 PG (27.0-31.0); MEAN CORPUSCULAR HGB CONC 32.2 G/DL (32.0-36.0); MEAN CORPUSCULAR VOLUME 92 FL (80-99); MEAN PLATELET VOLUME 6.6 FL (6.5-10.1); PLATELET COUNT 189 K/UL (150-450); RED BLOOD COUNT 2.79 M/UL (4.70-6.10); RED CELL DISTRIBUTION WIDTH 15.8 % (11.6-14.8)
[2017-01-26 07:46] LABS: ANION GAP 7 mmol/L (5-15); CALCIUM 8.8 MG/DL (8.5-10.1); CARBON DIOXIDE 25 MMOL/L (21-32); CHLORIDE 106 MMOL/L (98-107); CREATININE 1.3 MG/DL (0.55-1.30); PHOSPHORUS 2.5 MG/DL (2.5-4.9); POTASSIUM 3.6 MMOL/L (3.5-5.1); SODIUM 137 MMOL/L (136-145)
[2017-01-26 08:00] VITALS: BP 108/58
[2017-01-26 08:07] LABS: BAND NEUTROPHILS % (MANUAL) 1 % (0-8); BASOPHILS % (MANUAL) 2 % (0-2); EOSINOPHILS % (MANUAL) 3 % (0-3); LYMPHOCYTES % (MANUAL) 25 % (20-45); NEUTROPHILS % (MANUAL) 64 % (45-75); PLATELET ESTIMATE ADEQUATE; TOTAL CELLS COUNTED 100
[2017-01-26 08:08] LABS: ANISOCYTOSIS 1+; HYPOCHROMASIA 2+; PLATELET MORPHOLOGY NORMAL
--- NOTE | 2017-01-26 10:44 | GI Progress Note ---
Assessment/Plan Problems: (1) OB + stool ICD Codes: R19.5 - Other fecal abnormalities SNOMED: 85270184, 022148243 (2) ? colon mass (3) Altered level of consciousness ICD Codes: R40.4 - Transient alteration of awareness SNOMED: 6620557 (4) DM (diabetes mellitus) ICD Codes: E11.9 - Type 2 diabetes mellitus without complications SNOMED: 53215904 (5) Multiple myeloma ICD Codes: C90.00 - Multiple myeloma not having achieved remission SNOMED: 205205407 (6) Anemia ICD Codes: D64.9 - Anemia, unspecified SNOMED: 601203042 Qualifiers: Qualified Codes: D64.9 - Anemia, unspecified (7) Encephalopathy ICD Codes: G93.40 - Encephalopathy, unspecified SNOMED: 90814892 Status: unchanged Status Narrative Discussed with Dr. Heller. Assessment/Plan s/p colonoscopy SUMMARY FINDINGS: 1. Gastritis, status post biopsy. 2. Small hiatal hernia. 3. Large colonic polyp, which was biopsied and tattooed for future surgeries. 4. Two other colonic polyps removed from hepatic flexure area. See above for details. 5. Diverticulosis. 6. Internal hemorrhoids. RECOMMENDATIONS: fu surgical recs for removal of large polyp. follow biopsy results monitor H&H, prn transfusions ppi fu CEA, labs The patient was seen and examined at bedside and all new and available data was reviewed in the patients chart. I agree with the above findings, impression and plan. (Patient seen earlier today. Signature stamp does not reflect patient encounter time.). - Beata Heller MD Subjective Subjective limited Objective Last 24 Hour Vital Signs Date Time Temp Pulse Resp B/P (MAP) Pulse Ox O2 Delivery O2 Flow Rate FiO2 01/26/17 08:00 98.2 82 18 108/58 98 Room Air 01/26/17 04:00 97.9 76 18 116/53 98 01/26/17 04:00 98 Room Air 01/26/17 00:00 100 Room Air 01/26/17 00:00 99.3 86 18 113/55 100 01/25/17 20:23 98.6 70 18 128/70 98 Room Air 01/25/17 16:01 98.2 83 19 129/69 99 01/25/17 11:17 97.9 80 20 130/68 99 Laboratory Tests Test 01/26/17 05:00 White Blood Count 3.0 K/UL (4.8-10.8) L Red Blood Count 2.79 M/UL (4.70-6.10) L Hemoglobin 8.3 G/DL (14.2-18.0) L Hematocrit 25.7 % (42.0-52.0) L Mean Corpuscular Volume 92 FL (80-99) Mean Corpuscular Hemoglobin 29.7 PG (27.0-31.0) Mean Corpuscular Hemoglobin Concent 32.2 G/DL (32.0-36.0) Red Cell Distribution Width 15.8 % (11.6-14.8) H Platelet Count 189 K/UL (150-450) Mean Platelet Volume 6.6 FL (6.5-10.1) Neutrophils (%) (Auto) % (45.0-75.0) Lymphocytes (%) (Auto) % (20.0-45.0) Monocytes (%) (Auto) % (1.0-10.0) Eosinophils (%) (Auto) % (0.0-3.0) Basophils (%) (Auto) % (0.0-2.0) Differential Total Cells Counted 100 Neutrophils % (Manual) 64 % (45-75) Lymphocytes % (Manual) 25 % (20-45) Monocytes % (Manual) 5 % (1-10) Eosinophils % (Manual) 3 % (0-3) Basophils % (Manual) 2 % (0-2) Band Neutrophils 1 % (0-8) Platelet Estimate Adequate Platelet Morphology Normal Hypochromasia 2+ Anisocytosis 1+ Sodium Level 137 MMOL/L (136-145) Potassium Level 3.6 MMOL/L (3.5-5.1) Chloride Level 106 MMOL/L (98-107) Carbon Dioxide Level 25 MMOL/L (21-32) Anion Gap 7 mmol/L (5-15) Blood Urea Nitrogen 8 mg/dL (7-18) Creatinine 1.3 MG/DL (0.55-1.30) Estimat Glomerular Filtration Rate mL/min (>60) Glucose Level 88 MG/DL (74-106) Calcium Level 8.8 MG/DL (8.5-10.1) Phosphorus Level 2.5 MG/DL (2.5-4.9) Height (Feet): 5 Height (Inches): 5.00 Weight (Pounds): 135 General Appearance: WD/WN, no apparent distress, alert Cardiovascular: normal rate Respiratory/Chest: normal breath sounds, no respiratory distress Abdominal Exam: normal bowel sounds, non tender, soft Extremities: non-tender Kady Verma N.P. Jan 26, 2017 10:44 EMILIA HELLER Jan 28, 2017 10:28
--- NOTE | 2017-01-26 11:39 | Infectious Diseases Prog Note ---
Assessment/Plan Assessment/Plan A. Sepsis, SIRS resolved Severe anemia Multiple myeloma DM Cholelithiasis Diverticulosis Fatty liver colon mass, polyp P: Observe off antibiotic will have surgery tomorrow Subjective ROS Limited/Unobtainable: No Constitutional: Reports: no symptoms Respiratory: Reports: no symptoms Cardiovascular: Reports: no symptoms Gastrointestinal/Abdominal: Reports: diarrhea Genitourinary: Reports: no symptoms Allergies: Coded Allergies: No Known Allergies (Unverified , 01/18/17) Objective Vital Signs Last 24 Hour Vital Signs Date Time Temp Pulse Resp B/P (MAP) Pulse Ox O2 Delivery O2 Flow Rate FiO2 01/26/17 08:00 98.2 82 18 108/58 98 Room Air 01/26/17 04:00 97.9 76 18 116/53 98 01/26/17 04:00 98 Room Air 01/26/17 00:00 100 Room Air 01/26/17 00:00 99.3 86 18 113/55 100 01/25/17 20:23 98.6 70 18 128/70 98 Room Air 01/25/17 16:01 98.2 83 19 129/69 99 Height (Feet): 5 Height (Inches): 5.00 Weight (Pounds): 135 General Appearance: no acute distress HEENT: mucous membranes moist Respiratory/Chest: lungs clear Cardiovascular: normal rate Abdomen: soft, non tender Extremities: no edema Neurologic/Psychiatric: alert, oriented x 3, responsive Laboratory Tests Test 01/26/17 05:00 White Blood Count 3.0 K/UL (4.8-10.8) L Red Blood Count 2.79 M/UL (4.70-6.10) L Hemoglobin 8.3 G/DL (14.2-18.0) L Hematocrit 25.7 % (42.0-52.0) L Mean Corpuscular Volume 92 FL (80-99) Mean Corpuscular Hemoglobin 29.7 PG (27.0-31.0) Mean Corpuscular Hemoglobin Concent 32.2 G/DL (32.0-36.0) Red Cell Distribution Width 15.8 % (11.6-14.8) H Platelet Count 189 K/UL (150-450) Mean Platelet Volume 6.6 FL (6.5-10.1) Neutrophils (%) (Auto) % (45.0-75.0) Lymphocytes (%) (Auto) % (20.0-45.0) Monocytes (%) (Auto) % (1.0-10.0) Eosinophils (%) (Auto) % (0.0-3.0) Basophils (%) (Auto) % (0.0-2.0) Differential Total Cells Counted 100 Neutrophils % (Manual) 64 % (45-75) Lymphocytes % (Manual) 25 % (20-45) Monocytes % (Manual) 5 % (1-10) Eosinophils % (Manual) 3 % (0-3) Basophils % (Manual) 2 % (0-2) Band Neutrophils 1 % (0-8) Platelet Estimate Adequate Platelet Morphology Normal Hypochromasia 2+ Anisocytosis 1+ Sodium Level 137 MMOL/L (136-145) Potassium Level 3.6 MMOL/L (3.5-5.1) Chloride Level 106 MMOL/L (98-107) Carbon Dioxide Level 25 MMOL/L (21-32) Anion Gap 7 mmol/L (5-15) Blood Urea Nitrogen 8 mg/dL (7-18) Creatinine 1.3 MG/DL (0.55-1.30) Estimat Glomerular Filtration Rate mL/min (>60) Glucose Level 88 MG/DL (74-106) Calcium Level 8.8 MG/DL (8.5-10.1) Phosphorus Level 2.5 MG/DL (2.5-4.9) Current Medications Medications (Trade) Dose Ordered Sig/Ashli Route PRN Reason Start Time Stop Time Status Last Admin Dose Admin Acetaminophen (Tylenol) 650 mg Q4H PRN ORAL Mild Pain/Temp > 100.5 01/23/17 16:00 02/18/17 00:00 Pantoprazole (Protonix) 40 mg DAILY ORAL 01/24/17 09:00 02/19/17 08:59 01/26/17 08:43 Potassium Chloride (K-Dur) 40 meq DAILY ORAL 01/26/17 09:00 02/23/17 10:29 01/26/17 08:43 CHINEDU OSORIO Jan 26, 2017 11:39
[2017-01-26 12:00] VITALS: BP 123/56
--- NOTE | 2017-01-26 12:32 | General Progress Note ---
Assessment/Plan Problem List: (1) CHF (congestive heart failure) ICD Codes: I50.9 - Heart failure, unspecified SNOMED: 10613573 Qualifiers: Qualified Codes: I50.9 - Heart failure, unspecified (2) Anemia ICD Codes: D64.9 - Anemia, unspecified SNOMED: 211749231 Qualifiers: Qualified Codes: D64.9 - Anemia, unspecified (3) Multiple myeloma ICD Codes: C90.00 - Multiple myeloma not having achieved remission SNOMED: 884416539 (4) DM (diabetes mellitus) ICD Codes: E11.9 - Type 2 diabetes mellitus without complications SNOMED: 81657212 (5) Altered level of consciousness ICD Codes: R40.4 - Transient alteration of awareness SNOMED: 9234866 (6) Renal insufficiency ICD Codes: N28.9 - Disorder of kidney and ureter, unspecified SNOMED: 554243779, 061524937 Assessment/Plan MM poor prognosis needs to go to snf k is replaced found very large polyp so dr perry asked for surgical consult to remove it definelty needs to go to snf afterwards not safe to go home spoke w dr ho at [facility] AND he agreed with our plan to resect large polyp and send to snf for rehab pt/ot and monitering Subjective ROS Limited/Unobtainable: Yes Allergies: Coded Allergies: No Known Allergies (Unverified , 01/18/17) Objective Last 24 Hour Vital Signs Date Time Temp Pulse Resp B/P (MAP) Pulse Ox O2 Delivery O2 Flow Rate FiO2 01/26/17 08:00 98.2 82 18 108/58 98 Room Air 01/26/17 04:00 97.9 76 18 116/53 98 01/26/17 04:00 98 Room Air 01/26/17 00:00 100 Room Air 01/26/17 00:00 99.3 86 18 113/55 100 01/25/17 20:23 98.6 70 18 128/70 98 Room Air 01/25/17 16:01 98.2 83 19 129/69 99 Intake and Output 01/26/17 01/27/17 19:00 07:00 # Bowel Movements 3 Laboratory Tests 01/26/17 05:00: White Blood Count 3.0L, Red Blood Count 2.79L, Hemoglobin 8.3L, Hematocrit 25.7L , Mean Corpuscular Volume 92, Mean Corpuscular Hemoglobin 29.7, Mean Corpuscular Hemoglobin Concent 32.2, Red Cell Distribution Width 15.8H, Platelet Count 189, Mean Platelet Volume 6.6, Neutrophils (%) (Auto) , Lymphocytes (%) (Auto) , Monocytes (%) (Auto) , Eosinophils (%) (Auto) , Basophils (%) (Auto) , Differential Total Cells Counted 100, Neutrophils % ( Manual) 64, Lymphocytes % (Manual) 25, Monocytes % (Manual) 5, Eosinophils % ( Manual) 3, Basophils % (Manual) 2, Band Neutrophils 1, Platelet Estimate Adequate, Platelet Morphology Normal, Hypochromasia 2+, Anisocytosis 1+, Sodium Level 137, Potassium Level 3.6, Chloride Level 106, Carbon Dioxide Level 25, Anion Gap 7, Blood Urea Nitrogen 8, Creatinine 1.3, Estimat Glomerular Filtration Rate , Glucose Level 88, Calcium Level 8.8, Phosphorus Level 2.5 Height (Feet): 5 Height (Inches): 5.00 Weight (Pounds): 135 Cardiovascular: normal rate Respiratory/Chest: lungs clear Parth Gallo MD Jan 26, 2017 12:32
--- NOTE | 2017-01-26 14:26 | Nephrology Progress Note ---
Assessment/Plan Problem List: (1) Renal insufficiency (2) Anemia (3) Multiple myeloma (4) DM (diabetes mellitus) (5) Altered level of consciousness Assessment Severe Anemia, improved Proteinuria- HypoAlbuminemia- Low K- Low Na- MM- DMII- Plan stable- medium CHO diet K supplement- as needed 24 H urine Protein 1.6 grams monitor renal parameters- per consultants MARILEE plaqnning Subjective ROS Limited/Unobtainable: No Constitutional: Reports: malaise Objective Objective Last 24 Hour Vital Signs Date Time Temp Pulse Resp B/P (MAP) Pulse Ox O2 Delivery O2 Flow Rate FiO2 01/26/17 12:00 98.8 87 18 123/56 98 Room Air 01/26/17 08:00 98.2 82 18 108/58 98 Room Air 01/26/17 04:00 97.9 76 18 116/53 98 01/26/17 04:00 98 Room Air 01/26/17 00:00 100 Room Air 01/26/17 00:00 99.3 86 18 113/55 100 01/25/17 20:23 98.6 70 18 128/70 98 Room Air 01/25/17 16:01 98.2 83 19 129/69 99 Intake and Output 01/26/17 01/27/17 19:00 07:00 Intake Total 240 ml Balance 240 ml Intake Oral 240 ml # Voids 2 # Bowel Movements 5 Laboratory Tests 01/26/17 05:00: White Blood Count 3.0L, Red Blood Count 2.79L, Hemoglobin 8.3L, Hematocrit 25.7L , Mean Corpuscular Volume 92, Mean Corpuscular Hemoglobin 29.7, Mean Corpuscular Hemoglobin Concent 32.2, Red Cell Distribution Width 15.8H, Platelet Count 189, Mean Platelet Volume 6.6, Neutrophils (%) (Auto) , Lymphocytes (%) (Auto) , Monocytes (%) (Auto) , Eosinophils (%) (Auto) , Basophils (%) (Auto) , Differential Total Cells Counted 100, Neutrophils % ( Manual) 64, Lymphocytes % (Manual) 25, Monocytes % (Manual) 5, Eosinophils % ( Manual) 3, Basophils % (Manual) 2, Band Neutrophils 1, Platelet Estimate Adequate, Platelet Morphology Normal, Hypochromasia 2+, Anisocytosis 1+, Sodium Level 137, Potassium Level 3.6, Chloride Level 106, Carbon Dioxide Level 25, Anion Gap 7, Blood Urea Nitrogen 8, Creatinine 1.3, Estimat Glomerular Filtration Rate , Glucose Level 88, Calcium Level 8.8, Phosphorus Level 2.5 Height (Feet): 5 Height (Inches): 5.00 Weight (Pounds): 135 General Appearance: no apparent distress Objective PE not changed SHWETHA GAMBOA Jan 26, 2017 14:26
--- NOTE | 2017-01-26 15:12 | General Progress Note ---
Assessment/Plan Assessment/Plan ASSESSMENT AND RECOMMENDATIONS: 1. Multiple myeloma. --> Was previously on Revlimid, which can potentially cause myelosuppression --> outpatient followup 2. 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 Continue to closely monitor. --> work up has been reviewed 3. Mutliple colonic masses, one of which needs surgical resection, patient is scheduled for surgery tomorrow --> polyps negative for malignancy per pathology report 4. Hypokalemia Subjective Allergies: Coded Allergies: No Known Allergies (Unverified , 01/18/17) All Systems: reviewed and negative except above Subjective NAD, to have surgery tomorrow Objective Last 24 Hour Vital Signs Date Time Temp Pulse Resp B/P (MAP) Pulse Ox O2 Delivery O2 Flow Rate FiO2 01/26/17 12:00 98.8 87 18 123/56 98 Room Air 01/26/17 08:00 98.2 82 18 108/58 98 Room Air 01/26/17 04:00 97.9 76 18 116/53 98 01/26/17 04:00 98 Room Air 01/26/17 00:00 100 Room Air 01/26/17 00:00 99.3 86 18 113/55 100 01/25/17 20:23 98.6 70 18 128/70 98 Room Air 01/25/17 16:01 98.2 83 19 129/69 99 Intake and Output 01/26/17 01/27/17 19:00 07:00 Intake Total 360 ml Balance 360 ml Intake Oral 360 ml # Voids 3 # Bowel Movements 5 Laboratory Tests 01/26/17 05:00: White Blood Count 3.0L, Red Blood Count 2.79L, Hemoglobin 8.3L, Hematocrit 25.7L , Mean Corpuscular Volume 92, Mean Corpuscular Hemoglobin 29.7, Mean Corpuscular Hemoglobin Concent 32.2, Red Cell Distribution Width 15.8H, Platelet Count 189, Mean Platelet Volume 6.6, Neutrophils (%) (Auto) , Lymphocytes (%) (Auto) , Monocytes (%) (Auto) , Eosinophils (%) (Auto) , Basophils (%) (Auto) , Differential Total Cells Counted 100, Neutrophils % ( Manual) 64, Lymphocytes % (Manual) 25, Monocytes % (Manual) 5, Eosinophils % ( Manual) 3, Basophils % (Manual) 2, Band Neutrophils 1, Platelet Estimate Adequate, Platelet Morphology Normal, Hypochromasia 2+, Anisocytosis 1+, Sodium Level 137, Potassium Level 3.6, Chloride Level 106, Carbon Dioxide Level 25, Anion Gap 7, Blood Urea Nitrogen 8, Creatinine 1.3, Estimat Glomerular Filtration Rate , Glucose Level 88, Calcium Level 8.8, Phosphorus Level 2.5 Height (Feet): 5 Height (Inches): 5.00 Weight (Pounds): 135 General Appearance: no apparent distress EENT: PERRL/EOMI Neck: normal alignment Cardiovascular: normal peripheral pulses Respiratory/Chest: chest wall non-tender, decreased breath sounds Extremities: non-tender Jose Luis Deluna Jan 26, 2017 15:12
[2017-01-26 16:00] VITALS: BP 116/58
--- NOTE | 2017-01-26 17:25 | General Surgery Progress Note ---
General Surgery-Progress Note Subjective Additional Comments patient seen and examined at bedside. no acute events. doing well. no complaints. no n/v/f/c. tolerating diet. passing flatus. Objective Last 24 Hour Vital Signs Date Time Temp Pulse Resp B/P (MAP) Pulse Ox O2 Delivery O2 Flow Rate FiO2 01/26/17 12:00 98.8 87 18 123/56 98 Room Air 01/26/17 08:00 98.2 82 18 108/58 98 Room Air 01/26/17 04:00 97.9 76 18 116/53 98 01/26/17 04:00 98 Room Air 01/26/17 00:00 100 Room Air 01/26/17 00:00 99.3 86 18 113/55 100 01/25/17 20:23 98.6 70 18 128/70 98 Room Air I&O Intake and Output 01/26/17 01/27/17 19:00 07:00 Intake Total 360 ml Balance 360 ml Intake Oral 360 ml # Voids 3 # Bowel Movements 5 Drains: none Cardiovascular: RSR Respiratory: clear Abdomen: soft, non-tender, present bowel sounds Extremities: no edema, no tenderness Laboratory Tests Test 01/26/17 05:00 White Blood Count 3.0 K/UL (4.8-10.8) L Red Blood Count 2.79 M/UL (4.70-6.10) L Hemoglobin 8.3 G/DL (14.2-18.0) L Hematocrit 25.7 % (42.0-52.0) L Mean Corpuscular Volume 92 FL (80-99) Mean Corpuscular Hemoglobin 29.7 PG (27.0-31.0) Mean Corpuscular Hemoglobin Concent 32.2 G/DL (32.0-36.0) Red Cell Distribution Width 15.8 % (11.6-14.8) H Platelet Count 189 K/UL (150-450) Mean Platelet Volume 6.6 FL (6.5-10.1) Neutrophils (%) (Auto) % (45.0-75.0) Lymphocytes (%) (Auto) % (20.0-45.0) Monocytes (%) (Auto) % (1.0-10.0) Eosinophils (%) (Auto) % (0.0-3.0) Basophils (%) (Auto) % (0.0-2.0) Differential Total Cells Counted 100 Neutrophils % (Manual) 64 % (45-75) Lymphocytes % (Manual) 25 % (20-45) Monocytes % (Manual) 5 % (1-10) Eosinophils % (Manual) 3 % (0-3) Basophils % (Manual) 2 % (0-2) Band Neutrophils 1 % (0-8) Platelet Estimate Adequate Platelet Morphology Normal Hypochromasia 2+ Anisocytosis 1+ Sodium Level 137 MMOL/L (136-145) Potassium Level 3.6 MMOL/L (3.5-5.1) Chloride Level 106 MMOL/L (98-107) Carbon Dioxide Level 25 MMOL/L (21-32) Anion Gap 7 mmol/L (5-15) Blood Urea Nitrogen 8 mg/dL (7-18) Creatinine 1.3 MG/DL (0.55-1.30) Estimat Glomerular Filtration Rate mL/min (>60) Glucose Level 88 MG/DL (74-106) Calcium Level 8.8 MG/DL (8.5-10.1) Phosphorus Level 2.5 MG/DL (2.5-4.9) Plan Problems: (1) Polyp of transverse colon Assessment & Plan: 81 M with large possible near obstructing distal transverse colon polyp. afebrile, HD stable, multiple medical comorbidities, MM. discussed case and findings with patient. recommended surgical excision of large tumor for pathology. given size could potentially become obstructive requiring emergent high risk surgery in this patient with multiple medical comorbidities. Spoke with patient and family. after all information was given to family they have decided to proceed with surgery. consent obtained. will proceed with laparoscopic assisted left colectomy tomorrow to remove large transverse colon mass. NPO IV fluids Pre op abx type and cross consent patient recently had bowel prep for colonoscopy and has been on liquids only since. will continue without another bowel prep to avoid electrolyte abnormalities or dehydration prior to surgery which is possible with multiple bowel preps in short period of time. Nicholas Danielle Jan 26, 2017 17:25
--- NOTE | 2017-01-26 17:26 | Pre-Procedure Note/Attestation ---
Pre-Procedure Note/Attestation Complete Prior to Procedure Planned Procedure: left Procedure Narrative: laparoscopic assisted left colectomy Indications for Procedure Pre-Operative Diagnosis: large transverse colon tumor. Attestation I attest that I discussed the nature of the procedure; its benefits; risks and complications; and alternatives (and the risks and benefits of such alternatives ), prior to the procedure, with the patient (or the patient's legal security representative). I attest that, if there was a reasonable possibility of needing a blood transfusion, the patient (or the patient's legal security representative) was given the [facility] standardized written summary, pursuant to the Zackary Cheko Blood Safety Act ([place] Health and Safety Code # 1645, as amended). I attest that I re-evaluated the patient just prior to the surgery and that there has been no change in the patient's H&P, except as documented below: Nicholas Danielle Jan 26, 2017 17:26
[2017-01-26] MEDS ORDERED: ceFAZolin 2gm/50ml Premix 50 ML IV SCH (17:30)
[2017-01-26] MEDS: D5 1/2NS w/KCl 20mEq 1,000 ML IV SCH (19:08)
[2017-01-26] MEDS: ceFAZolin sod 2 GM in D5W 55 ML IVPB SCH (19:08)
--- NOTE | 2017-01-26 19:11 | Anethesia Preoperative Eval ---
Anesthesia Pre-op PMH/ROS General Date of Evaluation: Jan 26, 2017 Anesthesiologist: Alexei ASA Score: ASA 3 Mallampati Score Class I : Soft palate, uvula, fauces, pillars visible Class II: Soft palate, uvula, fauces visible Class III: Soft palate, base of uvula visible Class IV: Only hard plate visible Mallampati Classification: Class II Surgeon: Maria De Jesus Diagnosis: Colon mass Surgical Procedure: Laparoscopic colectomy Anesthesia History: none Family History: no anesthesia problems Allergies: Coded Allergies: No Known Allergies (Unverified , 01/18/17) Medications: see eMAR Past Medical History Cardiovascular: Reports: HTN, other - CHF, cardiomegaly, Denies: CAD, [place], valve dz, arrhythmia Pulmonary: Denies: asthma, COPD, EVELYN, other Gastrointestinal/Genitourinary: Reports: CRI, other - BPH, Denies: GERD, ESRD Neurologic/Psychiatric: Reports: other - mild dementia, Denies: dementia, CVA, depression/anxiety, TIA Endocrine: Reports: DM, Denies: hypothyroidism, steroids, other HEENT: Denies: cataract (L), cataract (R), glaucoma, [place] (L), [place] (R), other Hematology/Immune: Reports: anemia - chronic, other - multiple myeloma, Denies: DVT, bleeding disorder Musculoskeletal/Integumentary: Denies: OA, RA, DJD, DDD, edema, other PSxH Narrative: TURP Anesthesia Pre-op Phys. Exam Physician Exam Last Vital Signs Date Time Temp Pulse Resp B/P (MAP) Pulse Ox O2 Delivery O2 Flow Rate FiO2 01/26/17 16:00 99.9 90 19 116/58 98 Room Air 01/25/17 09:10 3.0 Constitutional: NAD Cardiovascular: RRR Respiratory: CTA Airway Exam Mallampati Score: Class II MO: full ROM: limited Teeth: missing, intact, broken Anesthesia Pre-op A/P Labs Hematology Test 01/26/17 05:00 White Blood Count 3.0 K/UL (4.8-10.8) L Red Blood Count 2.79 M/UL (4.70-6.10) L Hemoglobin 8.3 G/DL (14.2-18.0) L Hematocrit 25.7 % (42.0-52.0) L Mean Corpuscular Volume 92 FL (80-99) Mean Corpuscular Hemoglobin 29.7 PG (27.0-31.0) Mean Corpuscular Hemoglobin Concent 32.2 G/DL (32.0-36.0) Red Cell Distribution Width 15.8 % (11.6-14.8) H Platelet Count 189 K/UL (150-450) Mean Platelet Volume 6.6 FL (6.5-10.1) Neutrophils (%) (Auto) % (45.0-75.0) Lymphocytes (%) (Auto) % (20.0-45.0) Monocytes (%) (Auto) % (1.0-10.0) Eosinophils (%) (Auto) % (0.0-3.0) Basophils (%) (Auto) % (0.0-2.0) Differential Total Cells Counted 100 Neutrophils % (Manual) 64 % (45-75) Lymphocytes % (Manual) 25 % (20-45) Monocytes % (Manual) 5 % (1-10) Eosinophils % (Manual) 3 % (0-3) Basophils % (Manual) 2 % (0-2) Band Neutrophils 1 % (0-8) Platelet Estimate Adequate Platelet Morphology Normal Hypochromasia 2+ Anisocytosis 1+ Chemistry Test 01/26/17 05:00 Sodium Level 137 MMOL/L (136-145) Potassium Level 3.6 MMOL/L (3.5-5.1) Chloride Level 106 MMOL/L (98-107) Carbon Dioxide Level 25 MMOL/L (21-32) Anion Gap 7 mmol/L (5-15) Blood Urea Nitrogen 8 mg/dL (7-18) Creatinine 1.3 MG/DL (0.55-1.30) Estimat Glomerular Filtration Rate mL/min (>60) Glucose Level 88 MG/DL (74-106) Calcium Level 8.8 MG/DL (8.5-10.1) Phosphorus Level 2.5 MG/DL (2.5-4.9) Risk Assessment & Plan Assessment: ASA III Plan: GA Status Change Before Surgery: No Pre-Antibiotics Drug: CONRAD MENDEZ M.D. Jan 26, 2017 19:11
[2017-01-26 20:00] VITALS: BP 115/62
--- NOTE | 2017-01-26 23:31 | Cardiology Progress Note ---
Assessment/Plan Assessment/Plan 1. Altered level of consciousness, resolved, continue the current management, echo reveals normal LV systolic function. 2. Sinus tachycardia, resolved. 3. DM 4. Moderate MR. 5. Multiple Myeloma 6. Large transverse colon mass, awaiting laparoscopic assisted left colectomy. Subjective Subjective Denies chest pain or SOB. Objective Last 24 Hour Vital Signs Date Time Temp Pulse Resp B/P (MAP) Pulse Ox O2 Delivery O2 Flow Rate FiO2 01/26/17 20:00 98.5 94 18 115/62 96 01/26/17 16:00 99.9 90 19 116/58 98 Room Air 01/26/17 12:00 98.8 87 18 123/56 98 Room Air 01/26/17 08:00 98.2 82 18 108/58 98 Room Air 01/26/17 04:00 97.9 76 18 116/53 98 01/26/17 04:00 98 Room Air 01/26/17 00:00 100 Room Air 01/26/17 00:00 99.3 86 18 113/55 100 Intake and Output 01/26/17 01/27/17 19:00 07:00 Intake Total 600 ml Balance 600 ml Intake Oral 600 ml # Voids 4 # Bowel Movements 6 2D Echo: LVEF 55%, Mild LVH, LAE, Mod AR/MR, Grade I LVDD Laboratory Tests Test 01/26/17 05:00 White Blood Count 3.0 K/UL (4.8-10.8) L Red Blood Count 2.79 M/UL (4.70-6.10) L Hemoglobin 8.3 G/DL (14.2-18.0) L Hematocrit 25.7 % (42.0-52.0) L Mean Corpuscular Volume 92 FL (80-99) Mean Corpuscular Hemoglobin 29.7 PG (27.0-31.0) Mean Corpuscular Hemoglobin Concent 32.2 G/DL (32.0-36.0) Red Cell Distribution Width 15.8 % (11.6-14.8) H Platelet Count 189 K/UL (150-450) Mean Platelet Volume 6.6 FL (6.5-10.1) Neutrophils (%) (Auto) % (45.0-75.0) Lymphocytes (%) (Auto) % (20.0-45.0) Monocytes (%) (Auto) % (1.0-10.0) Eosinophils (%) (Auto) % (0.0-3.0) Basophils (%) (Auto) % (0.0-2.0) Differential Total Cells Counted 100 Neutrophils % (Manual) 64 % (45-75) Lymphocytes % (Manual) 25 % (20-45) Monocytes % (Manual) 5 % (1-10) Eosinophils % (Manual) 3 % (0-3) Basophils % (Manual) 2 % (0-2) Band Neutrophils 1 % (0-8) Platelet Estimate Adequate Platelet Morphology Normal Hypochromasia 2+ Anisocytosis 1+ Sodium Level 137 MMOL/L (136-145) Potassium Level 3.6 MMOL/L (3.5-5.1) Chloride Level 106 MMOL/L (98-107) Carbon Dioxide Level 25 MMOL/L (21-32) Anion Gap 7 mmol/L (5-15) Blood Urea Nitrogen 8 mg/dL (7-18) Creatinine 1.3 MG/DL (0.55-1.30) Estimat Glomerular Filtration Rate mL/min (>60) Glucose Level 88 MG/DL (74-106) Calcium Level 8.8 MG/DL (8.5-10.1) Phosphorus Level 2.5 MG/DL (2.5-4.9) Objective General Appearance: no apparent distress, alert, GCS 15, non-toxic HEENT: normocephalic, atraumatic, bilateral eye PERRL, EOMI Neck: Negative JVD, carotid upstroke 2+ with no bruit. Respiratory: normal breath sounds, speaking full sentences Cardiovascular: regular rate, rhythm, normal S1S2, no murmurs, gallops or rubs. Gastrointestinal: normal bowel sounds, non tender, soft, non-distended, no guarding, no rebound Genitourinary: normal inspection, no CVA tenderness Musculoskeletal: No edema, clubbing or cyanosis. SILVA VALENZUELA Jan 26, 2017 23:31
[2017-01-27] VITALS (15 sets, daily range): BP systolic 102–137; BP diastolic 52–71
[2017-01-27] MEDS: ceFAZolin sod 2 GM in D5W 55 ML IVPB SCH (03:45)
[2017-01-27] MEDS: D5 1/2NS w/KCl 20mEq 1,000 ML IV SCH ×3 (03:46→23:56)
[2017-01-27] MEDS ORDERED: Propofol 200mg/20ml IV ONE (07:20)
[2017-01-27] MEDS ORDERED: Bacitracin 50000 Units Vial ONE (07:20)
[2017-01-27] MEDS ORDERED: Bupivacaine 0.5% Inj 30 ml vial INJ ONE (07:20)
[2017-01-27] MEDS ORDERED: NS Irrig 1000ml ONE (07:30)
[2017-01-27] MEDS ORDERED: Zemuron 50mg/5ml Inj IV ONE (07:30)
[2017-01-27] MEDS ORDERED: fentaNYL 100 mcg/2 mL IV ONE (07:30)
[2017-01-27] MEDS ORDERED: LR 1000ml ONE (07:30)
[2017-01-27] MEDS ORDERED: Lidocaine 1% MPF 10mg/ml 5ml ONE (07:30)
[2017-01-27] MEDS ORDERED: Sterile Water Irrig 1000ml IRRIG ONE (07:30)
[2017-01-27] MEDS ORDERED: NS Irrig 1000ml IRRIG ONE (08:11)
--- NOTE | 2017-01-27 08:12 | Immediate Post-Op Evaluation ---
Immediate Post-Op Evalulation Immediate Post-Op Evalulation Procedure: EGD Date of Evaluation: Jan 27, 2017 Time of Evaluation: 11:14 IV Fluids: 1.5L Blood Products: 0 Estimated Blood Loss: 50 Urinary Output: 150 Blood Pressure Systolic: 110 Blood Pressure Diastolic: 58 Pulse Rate: 78 Respiratory Rate: 17 O2 Sat by Pulse Oximetry: 100 Temperature (Fahrenheit): 98.5 Pain Score (1-10): 0 Nausea: No Vomiting: No Complications 0 Patient Status: awake, reacts, patent, none Hydration Status: adequate Drug: Ancef 1g, flagyl 500mg Given Within 1 Hr of Incision: Yes Time Given: 08:00 CONRAD GONZALEZ M.D. Jan 27, 2017 08:12
[2017-01-27] MEDS ORDERED: LR 1000ml 1,000 ML IVLG SCH (08:13)
[2017-01-27] MEDS ORDERED: fentaNYL 100 mcg/2 mL IV PRN (08:15)
[2017-01-27] MEDS ORDERED: DiphenhydrAMINE 50mg/ml Inj IVP PRN ×2 (08:15→11:45)
[2017-01-27] MEDS ORDERED: Hydromorphone 0.5mg/0.5ml inj IVP PRN ×2 (08:15→11:45)
--- NOTE | 2017-01-27 09:50 | GI Progress Note ---
Assessment/Plan Problems: (1) OB + stool ICD Codes: R19.5 - Other fecal abnormalities SNOMED: 49530141, 690289838 (2) ? colon mass (3) Altered level of consciousness ICD Codes: R40.4 - Transient alteration of awareness SNOMED: 7695481 (4) DM (diabetes mellitus) ICD Codes: E11.9 - Type 2 diabetes mellitus without complications SNOMED: 75558797 (5) Multiple myeloma ICD Codes: C90.00 - Multiple myeloma not having achieved remission SNOMED: 705587328 (6) Anemia ICD Codes: D64.9 - Anemia, unspecified SNOMED: 431253234 Qualifiers: Qualified Codes: D64.9 - Anemia, unspecified (7) Encephalopathy ICD Codes: G93.40 - Encephalopathy, unspecified SNOMED: 06086360 Status: unchanged Status Narrative Discussed with Dr. Heller. Assessment/Plan s/p colonoscopy SUMMARY FINDINGS: 1. Gastritis, status post biopsy. 2. Small hiatal hernia. 3. Large colonic polyp, which was biopsied and tattooed for future surgeries. 4. Two other colonic polyps removed from hepatic flexure area. See above for details. 5. Diverticulosis. 6. Internal hemorrhoids. RECOMMENDATIONS: surgery today for removal of large polyp. follow biopsy results of colonoscopy >> negative for malignancy monitor H&H, prn transfusions ppi fu CEA, labs The patient was seen and examined at bedside and all new and available data was reviewed in the patients chart. I agree with the above findings, impression and plan. (Patient seen earlier today. Signature stamp does not reflect patient encounter time.). - Beata Heller MD Subjective Subjective limited Objective Last 24 Hour Vital Signs Date Time Temp Pulse Resp B/P (MAP) Pulse Ox O2 Delivery O2 Flow Rate FiO2 01/27/17 08:30 99.1 76 19 137/71 93 01/27/17 04:00 98.0 82 20 102/52 100 Room Air 3.0 01/27/17 00:00 98.7 90 20 121/61 96 Room Air 3.0 01/26/17 20:00 98.5 94 18 115/62 96 01/26/17 16:00 99.9 90 19 116/58 98 Room Air 01/26/17 12:00 98.8 87 18 123/56 98 Room Air Height (Feet): 5 Height (Inches): 5.00 Weight (Pounds): 135 General Appearance: WD/WN, no apparent distress, alert Cardiovascular: normal rate Respiratory/Chest: normal breath sounds, no respiratory distress Abdominal Exam: normal bowel sounds, non tender, soft Extremities: non-tender Kady Verma N.P. Jan 27, 2017 09:50 EMILIA HELLER Jan 28, 2017 10:29
--- NOTE | 2017-01-27 11:37 | Brief Operative Note ---
Immediate Post Operative Note Operative Note Pre-op Diagnosis: large transverse colon tumor. Procedure: laparoscopic assisted left colectomy Findings: consistent w/pre-op dx studies Surgeon: Lolis Anesthesiologist: Alexei Anesthesia: general Specimen: yes - left colectomy Complications: none Condition: stable Fluids: see records Estimated Blood Loss: volume - 50cc Drains: none Implant(s) used?: No Nicholas Danielle Jan 27, 2017 11:37
[2017-01-27] MEDS ORDERED: Metoclopramide 10mg/2ml Inj IVP PRN (11:45)
[2017-01-27] MEDS ORDERED: HYDROmorphone 1mg/ml Carpuject IVP PRN (11:45)
--- NOTE | 2017-01-27 11:46 | Nephrology Progress Note ---
Assessment/Plan Problem List: (1) Renal insufficiency (2) Anemia (3) Multiple myeloma (4) DM (diabetes mellitus) (5) Altered level of consciousness Assessment Severe Anemia, improved Proteinuria- HypoAlbuminemia- Low K- Low Na- MM- DMII- Plan stable- medium CHO diet K supplement- as needed 24 H urine Protein 1.6 grams monitor renal parameters- per consultants DC plaqnning Subjective ROS Limited/Unobtainable: No Constitutional: Reports: malaise Objective Objective Last 24 Hour Vital Signs Date Time Temp Pulse Resp B/P (MAP) Pulse Ox O2 Delivery O2 Flow Rate FiO2 01/27/17 11:30 74 24 117/60 100 Simple Mask 6.0 01/27/17 11:19 75 23 111/60 100 Simple Mask 6.0 01/27/17 11:14 75 26 118/57 100 Simple Mask 6.0 01/27/17 11:09 98.5 78 26 110/58 100 Simple Mask 6.0 01/27/17 04:00 98.0 82 20 102/52 100 Room Air 3.0 01/27/17 00:00 98.7 90 20 121/61 96 Room Air 3.0 01/26/17 20:00 98.5 94 18 115/62 96 01/26/17 16:00 99.9 90 19 116/58 98 Room Air 01/26/17 12:00 98.8 87 18 123/56 98 Room Air Intake and Output 01/27/17 01/28/17 19:00 07:00 Intake Total 1500 ml Output Total 50 ml Balance 1450 ml IV Total 1500 ml Estimated Blood Loss 50 ml Height (Feet): 5 Height (Inches): 5.00 Weight (Pounds): 135 General Appearance: no apparent distress Objective PE not changed SHWETHA GAMBOA Jan 27, 2017 11:46
[2017-01-27] MEDS ORDERED: D5 1/2NS w/KCl 20mEq 1,000 ML IV SCH (12:15)
[2017-01-27 13:28] LABS: MEAN CORPUSCULAR HEMOGLOBIN 28.6 PG (27.0-31.0); MEAN CORPUSCULAR HGB CONC 31.1 G/DL (32.0-36.0); MEAN CORPUSCULAR VOLUME 92 FL (80-99); MEAN PLATELET VOLUME 5.3 FL (6.5-10.1); PLATELET COUNT 175 K/UL (150-450); RED BLOOD COUNT 2.52 M/UL (4.70-6.10); RED CELL DISTRIBUTION WIDTH 15.3 % (11.6-14.8); WHITE BLOOD COUNT 2.2 K/UL (4.8-10.8)
[2017-01-27] MEDS ORDERED: Tubing IV Secondary IV ONE (13:29)
[2017-01-27 13:39] LABS: ANION GAP 9 mmol/L (5-15); CALCIUM 8.3 MG/DL (8.5-10.1); CARBON DIOXIDE 22 MMOL/L (21-32); CHLORIDE 106 MMOL/L (98-107); CREATININE 1.3 MG/DL (0.55-1.30); POTASSIUM 3.6 MMOL/L (3.5-5.1); SODIUM 137 MMOL/L (136-145)
[2017-01-27] MEDS: ceFAZolin 2gm/50ml Premix 50 ML IV SCH ×2 (13:59→22:23)
[2017-01-27 14:00] LABS: INR 1.1 (0.9-1.1); PROTHROMBIN TIME 11.4 SEC (9.30-11.50)
--- NOTE | 2017-01-27 14:16 | Infectious Diseases Prog Note ---
Assessment/Plan Assessment/Plan A. Sepsis, SIRS resolved Severe anemia Multiple myeloma DM Cholelithiasis Diverticulosis Fatty liver colon mass s/p left colectomy P: Continue perioperative Cefazolin Subjective ROS Limited/Unobtainable: Yes Gastrointestinal/Abdominal: Reports: other - had laparoscopic colectomy today Neurologic: Reports: other - sedated Allergies: Coded Allergies: No Known Allergies (Unverified , 01/18/17) Objective Vital Signs Last 24 Hour Vital Signs Date Time Temp Pulse Resp B/P (MAP) Pulse Ox O2 Delivery O2 Flow Rate FiO2 01/27/17 12:48 97.6 83 19 124/69 100 01/27/17 12:30 98.6 01/27/17 12:25 98.6 75 16 106/53 100 Nasal Cannula 3.0 01/27/17 12:15 81 18 110/54 100 Nasal Cannula 3.0 01/27/17 12:07 79 20 116/61 100 Nasal Cannula 3.0 01/27/17 12:02 78 17 100 01/27/17 11:50 75 21 128/61 100 Nasal Cannula 3.0 01/27/17 11:40 78 23 123/56 100 Nasal Cannula 3.0 01/27/17 11:30 74 24 117/60 100 Simple Mask 6.0 01/27/17 11:19 75 23 111/60 100 Simple Mask 6.0 01/27/17 11:14 75 26 118/57 100 Simple Mask 6.0 01/27/17 11:09 98.5 78 26 110/58 100 Simple Mask 6.0 01/27/17 04:00 98.0 82 20 102/52 100 Room Air 3.0 01/27/17 00:00 98.7 90 20 121/61 96 Room Air 3.0 01/26/17 20:00 98.5 94 18 115/62 96 01/26/17 16:00 99.9 90 19 116/58 98 Room Air Height (Feet): 5 Height (Inches): 5.00 Weight (Pounds): 135 General Appearance: no acute distress HEENT: mucous membranes moist Respiratory/Chest: lungs clear Cardiovascular: normal rate Abdomen: soft, non tender Extremities: no edema Neurologic/Psychiatric: other - sedated Laboratory Tests Test 01/27/17 12:50 White Blood Count 2.2 K/UL (4.8-10.8) L Red Blood Count 2.52 M/UL (4.70-6.10) L Hemoglobin 7.2 G/DL (14.2-18.0) L Hematocrit 23.2 % (42.0-52.0) L Mean Corpuscular Volume 92 FL (80-99) Mean Corpuscular Hemoglobin 28.6 PG (27.0-31.0) Mean Corpuscular Hemoglobin Concent 31.1 G/DL (32.0-36.0) L Red Cell Distribution Width 15.3 % (11.6-14.8) H Platelet Count 175 K/UL (150-450) Mean Platelet Volume 5.3 FL (6.5-10.1) L Neutrophils (%) (Auto) % (45.0-75.0) Lymphocytes (%) (Auto) % (20.0-45.0) Monocytes (%) (Auto) % (1.0-10.0) Eosinophils (%) (Auto) % (0.0-3.0) Basophils (%) (Auto) % (0.0-2.0) Neutrophils % (Manual) Pending Lymphocytes % (Manual) Pending Platelet Estimate Pending Platelet Morphology Pending Prothrombin Time 11.4 SEC (9.30-11.50) Prothromb Time International Ratio 1.1 (0.9-1.1) Activated Partial Thromboplast Time 31 SEC (23-33) Sodium Level 137 MMOL/L (136-145) Potassium Level 3.6 MMOL/L (3.5-5.1) Chloride Level 106 MMOL/L (98-107) Carbon Dioxide Level 22 MMOL/L (21-32) Anion Gap 9 mmol/L (5-15) Blood Urea Nitrogen 7 mg/dL (7-18) Creatinine 1.3 MG/DL (0.55-1.30) Estimat Glomerular Filtration Rate mL/min (>60) Glucose Level 142 MG/DL (74-106) H Calcium Level 8.3 MG/DL (8.5-10.1) L Current Medications Medications (Trade) Dose Ordered Sig/Ashli Route PRN Reason Start Time Stop Time Status Last Admin Dose Admin Acetaminophen (Tylenol) 650 mg Q4H PRN ORAL Mild Pain/Temp > 100.5 01/23/17 16:00 02/18/17 00:00 Cefazolin Sodium 50 ml @ 100 mls/hr Q8HR IV 01/27/17 14:00 02/03/17 13:59 01/27/17 13:59 Dextrose/ Electrolytes 1,000 ml @ 100 mls/hr Q10H IV 01/26/17 18:30 02/25/17 18:29 01/27/17 13:51 Diphenhydramine HCl (Benadryl) 12.5 mg Q6H PRN IVP Itching/Pruritis 01/27/17 11:45 02/26/17 11:44 Heparin Sodium (Porcine) (Heparin 5000 units/ml) 5,000 units EVERY 8 HOURS SUBQ 01/28/17 09:00 02/27/17 08:59 Hydromorphone HCl (Dilaudid) 0.5 mg Q3H PRN IVP Pain Score 1-3 01/27/17 11:45 02/03/17 11:44 Hydromorphone HCl (Dilaudid) 1 mg Q3H PRN IVP pain score 4-6 01/27/17 11:45 02/03/17 11:44 Hydromorphone HCl (Dilaudid) 2 mg Q3H PRN IVP pain score 7-10 01/27/17 11:45 02/03/17 11:44 Metoclopramide HCl (Reglan) 10 mg Q6H PRN IVP Nausea & Vomiting 01/27/17 11:45 02/26/17 11:44 Metronidazole 100 ml @ 100 mls/hr Q8HR IVPB 01/26/17 22:00 02/02/17 21:59 01/27/17 04:36 Pantoprazole (Protonix) 40 mg DAILY IVP 01/28/17 09:00 02/27/17 08:59 Potassium Chloride (K-Dur) 40 meq DAILY ORAL 01/26/17 09:00 02/23/17 10:29 01/26/17 08:43 CHINEDU OSORIO Jan 27, 2017 14:16
[2017-01-27 14:21] LABS: ANISOCYTOSIS 1+; BAND NEUTROPHILS % (MANUAL) 0 % (0-8); BASOPHILS % (MANUAL) 0 % (0-2); EOSINOPHILS % (MANUAL) 1 % (0-3); HYPOCHROMASIA 1+; LYMPHOCYTES % (MANUAL) 10 % (20-45); NEUTROPHILS % (MANUAL) 82 % (45-75); PLATELET ESTIMATE ADEQUATE; PLATELET MORPHOLOGY NORMAL; TOTAL CELLS COUNTED 100
--- NOTE | 2017-01-27 15:15 | General Progress Note ---
Progress Note Progress Note Post op note: seen and examined. doing well. comfortable. states pain well controlled. no n/v/f/c. good UOP afebrile HD stable, VSS. s/p lap assisted left colectomy. recovering -npo, okay for ice chips -iv fluids -post op abx -unless symptomatic will hold off on transfusion for now. repeat AM labs -scd's -Nicholas Pearson Jan 27, 2017 15:15
--- NOTE | 2017-01-27 16:05 | General Progress Note ---
Assessment/Plan Assessment/Plan ASSESSMENT AND RECOMMENDATIONS: # Drop in H/H post surgery --> will recheck AM labs, hold off transfusion for now #. Multiple myeloma. --> Was previously on Revlimid, which can potentially cause myelosuppression --> outpatient followup #. 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 Continue to closely monitor. --> work up has been reviewed #. Mutliple colonic masses --> polyps negative for malignancy per pathology report --> s/p lap assisted colectomy #. Hypokalemia Subjective Allergies: Coded Allergies: No Known Allergies (Unverified , 01/18/17) All Systems: reviewed and negative except above Subjective s/p surgery, H/H dropped but not symptomatic Objective Last 24 Hour Vital Signs Date Time Temp Pulse Resp B/P (MAP) Pulse Ox O2 Delivery O2 Flow Rate FiO2 01/27/17 12:48 97.6 83 19 124/69 100 01/27/17 12:30 98.6 01/27/17 12:25 98.6 75 16 106/53 100 Nasal Cannula 3.0 01/27/17 12:15 81 18 110/54 100 Nasal Cannula 3.0 01/27/17 12:07 79 20 116/61 100 Nasal Cannula 3.0 01/27/17 12:02 78 17 100 01/27/17 11:50 75 21 128/61 100 Nasal Cannula 3.0 01/27/17 11:40 78 23 123/56 100 Nasal Cannula 3.0 01/27/17 11:30 74 24 117/60 100 Simple Mask 6.0 01/27/17 11:19 75 23 111/60 100 Simple Mask 6.0 01/27/17 11:14 75 26 118/57 100 Simple Mask 6.0 01/27/17 11:09 98.5 78 26 110/58 100 Simple Mask 6.0 01/27/17 04:00 98.0 82 20 102/52 100 Room Air 3.0 01/27/17 00:00 98.7 90 20 121/61 96 Room Air 3.0 01/26/17 20:00 98.5 94 18 115/62 96 01/26/17 16:00 99.9 90 19 116/58 98 Room Air Intake and Output 01/27/17 01/28/17 19:00 07:00 Intake Total 1600 ml Output Total 250 ml Balance 1350 ml IV Total 1600 ml Output Urine Total 200 ml Estimated Blood Loss 50 ml Laboratory Tests 01/27/17 12:50: White Blood Count 2.2L, Red Blood Count 2.52L, Hemoglobin 7.2L, Hematocrit 23.2L , Mean Corpuscular Volume 92, Mean Corpuscular Hemoglobin 28.6, Mean Corpuscular Hemoglobin Concent 31.1L, Red Cell Distribution Width 15.3H, Platelet Count 175, Mean Platelet Volume 5.3L, Neutrophils (%) (Auto) , Lymphocytes (%) (Auto) , Monocytes (%) (Auto) , Eosinophils (%) (Auto) , Basophils (%) (Auto) , Differential Total Cells Counted 100, Neutrophils % ( Manual) 82H, Lymphocytes % (Manual) 10L, Monocytes % (Manual) 7, Eosinophils % ( Manual) 1, Basophils % (Manual) 0, Band Neutrophils 0, Platelet Estimate Adequate, Platelet Morphology Normal, Hypochromasia 1+, Anisocytosis 1+, Prothrombin Time 11.4, Prothromb Time International Ratio 1.1, Activated Partial Thromboplast Time 31, Sodium Level 137, Potassium Level 3.6, Chloride Level 106, Carbon Dioxide Level 22, Anion Gap 9, Blood Urea Nitrogen 7, Creatinine 1.3, Estimat Glomerular Filtration Rate , Glucose Level 142H, Calcium Level 8.3L Height (Feet): 5 Height (Inches): 5.00 Weight (Pounds): 135 General Appearance: no apparent distress EENT: normal ENT inspection Neck: normal alignment Cardiovascular: normal peripheral pulses Respiratory/Chest: lungs clear Abdomen: normal bowel sounds Skin: normal pigmentation Jose Luis Deluna Jan 27, 2017 16:05
--- NOTE | 2017-01-27 18:58 | General Progress Note ---
Assessment/Plan Problem List: (1) CHF (congestive heart failure) ICD Codes: I50.9 - Heart failure, unspecified SNOMED: 88727502 Qualifiers: Qualified Codes: I50.9 - Heart failure, unspecified (2) Anemia ICD Codes: D64.9 - Anemia, unspecified SNOMED: 111480896 Qualifiers: Qualified Codes: D64.9 - Anemia, unspecified (3) Multiple myeloma ICD Codes: C90.00 - Multiple myeloma not having achieved remission SNOMED: 746802665 (4) DM (diabetes mellitus) ICD Codes: E11.9 - Type 2 diabetes mellitus without complications SNOMED: 70757996 (5) Altered level of consciousness ICD Codes: R40.4 - Transient alteration of awareness SNOMED: 2768050 (6) Renal insufficiency ICD Codes: N28.9 - Disorder of kidney and ureter, unspecified SNOMED: 392451173, 419479956 Assessment/Plan MM poor prognosis needs to go to snf s/p juarez colectomy for large colonic polyp anemia due to mm and colonic polyp needs snf Subjective Gastrointestinal/Abdominal: Reports: abdominal pain Allergies: Coded Allergies: No Known Allergies (Unverified , 01/18/17) Objective Last 24 Hour Vital Signs Date Time Temp Pulse Resp B/P (MAP) Pulse Ox O2 Delivery O2 Flow Rate FiO2 01/27/17 16:00 Nasal Cannula 3.0 01/27/17 15:57 97.9 84 19 113/65 100 01/27/17 12:50 Nasal Cannula 3.0 01/27/17 12:48 97.6 83 19 124/69 100 01/27/17 12:30 98.6 01/27/17 12:25 98.6 75 16 106/53 100 Nasal Cannula 3.0 01/27/17 12:15 81 18 110/54 100 Nasal Cannula 3.0 01/27/17 12:07 79 20 116/61 100 Nasal Cannula 3.0 01/27/17 12:02 78 17 100 01/27/17 11:50 75 21 128/61 100 Nasal Cannula 3.0 01/27/17 11:40 78 23 123/56 100 Nasal Cannula 3.0 01/27/17 11:30 74 24 117/60 100 Simple Mask 6.0 01/27/17 11:19 75 23 111/60 100 Simple Mask 6.0 01/27/17 11:14 75 26 118/57 100 Simple Mask 6.0 01/27/17 11:09 98.5 78 26 110/58 100 Simple Mask 6.0 01/27/17 04:00 98.0 82 20 102/52 100 Room Air 3.0 01/27/17 00:00 98.7 90 20 121/61 96 Room Air 3.0 01/26/17 20:00 98.5 94 18 115/62 96 Intake and Output 01/27/17 01/28/17 19:00 07:00 Intake Total 1950 ml Output Total 250 ml Balance 1700 ml IV Total 1950 ml Output Urine Total 200 ml Estimated Blood Loss 50 ml Laboratory Tests 01/27/17 12:50: White Blood Count 2.2L, Red Blood Count 2.52L, Hemoglobin 7.2L, Hematocrit 23.2L , Mean Corpuscular Volume 92, Mean Corpuscular Hemoglobin 28.6, Mean Corpuscular Hemoglobin Concent 31.1L, Red Cell Distribution Width 15.3H, Platelet Count 175, Mean Platelet Volume 5.3L, Neutrophils (%) (Auto) , Lymphocytes (%) (Auto) , Monocytes (%) (Auto) , Eosinophils (%) (Auto) , Basophils (%) (Auto) , Differential Total Cells Counted 100, Neutrophils % ( Manual) 82H, Lymphocytes % (Manual) 10L, Monocytes % (Manual) 7, Eosinophils % ( Manual) 1, Basophils % (Manual) 0, Band Neutrophils 0, Platelet Estimate Adequate, Platelet Morphology Normal, Hypochromasia 1+, Anisocytosis 1+, Prothrombin Time 11.4, Prothromb Time International Ratio 1.1, Activated Partial Thromboplast Time 31, Sodium Level 137, Potassium Level 3.6, Chloride Level 106, Carbon Dioxide Level 22, Anion Gap 9, Blood Urea Nitrogen 7, Creatinine 1.3, Estimat Glomerular Filtration Rate , Glucose Level 142H, Calcium Level 8.3L Height (Feet): 5 Height (Inches): 5.00 Weight (Pounds): 135 Parth Gallo MD Jan 27, 2017 18:58
--- NOTE | 2017-01-27 23:49 | Cardiology Progress Note ---
Assessment/Plan Assessment/Plan 1. Large transverse colon mass, s/p laparoscopic assisted left colectomy, POD # 1, no perioperative cardiac events, echo reveals normal LV systolic function. 2. Sinus tachycardia, resolved. 3. DM 4. Moderate MR. 5. Multiple Myeloma Subjective Subjective Denies chest pain or SOB. Objective Last 24 Hour Vital Signs Date Time Temp Pulse Resp B/P (MAP) Pulse Ox O2 Delivery O2 Flow Rate FiO2 01/27/17 22:08 97.9 01/27/17 20:34 97.9 86 18 115/60 100 01/27/17 16:00 Nasal Cannula 3.0 01/27/17 15:57 97.9 84 19 113/65 100 01/27/17 12:50 Nasal Cannula 3.0 01/27/17 12:48 97.6 83 19 124/69 100 01/27/17 12:30 98.6 01/27/17 12:25 98.6 75 16 106/53 100 Nasal Cannula 3.0 01/27/17 12:15 81 18 110/54 100 Nasal Cannula 3.0 01/27/17 12:07 79 20 116/61 100 Nasal Cannula 3.0 01/27/17 12:02 78 17 100 01/27/17 11:50 75 21 128/61 100 Nasal Cannula 3.0 01/27/17 11:40 78 23 123/56 100 Nasal Cannula 3.0 01/27/17 11:30 74 24 117/60 100 Simple Mask 6.0 01/27/17 11:19 75 23 111/60 100 Simple Mask 6.0 01/27/17 11:14 75 26 118/57 100 Simple Mask 6.0 01/27/17 11:09 98.5 78 26 110/58 100 Simple Mask 6.0 01/27/17 04:00 98.0 82 20 102/52 100 Room Air 3.0 01/27/17 00:00 98.7 90 20 121/61 96 Room Air 3.0 Intake and Output 01/27/17 01/28/17 19:00 07:00 Intake Total 1950 ml Output Total 250 ml Balance 1700 ml IV Total 1950 ml Output Urine Total 200 ml Estimated Blood Loss 50 ml 2D Echo: LVEF 55%, Mild LVH, LAE, Mod AR/MR, Grade I LVDD Laboratory Tests Test 01/27/17 12:50 White Blood Count 2.2 K/UL (4.8-10.8) L Red Blood Count 2.52 M/UL (4.70-6.10) L Hemoglobin 7.2 G/DL (14.2-18.0) L Hematocrit 23.2 % (42.0-52.0) L Mean Corpuscular Volume 92 FL (80-99) Mean Corpuscular Hemoglobin 28.6 PG (27.0-31.0) Mean Corpuscular Hemoglobin Concent 31.1 G/DL (32.0-36.0) L Red Cell Distribution Width 15.3 % (11.6-14.8) H Platelet Count 175 K/UL (150-450) Mean Platelet Volume 5.3 FL (6.5-10.1) L Neutrophils (%) (Auto) % (45.0-75.0) Lymphocytes (%) (Auto) % (20.0-45.0) Monocytes (%) (Auto) % (1.0-10.0) Eosinophils (%) (Auto) % (0.0-3.0) Basophils (%) (Auto) % (0.0-2.0) Differential Total Cells Counted 100 Neutrophils % (Manual) 82 % (45-75) H Lymphocytes % (Manual) 10 % (20-45) L Monocytes % (Manual) 7 % (1-10) Eosinophils % (Manual) 1 % (0-3) Basophils % (Manual) 0 % (0-2) Band Neutrophils 0 % (0-8) Platelet Estimate Adequate Platelet Morphology Normal Hypochromasia 1+ Anisocytosis 1+ Prothrombin Time 11.4 SEC (9.30-11.50) Prothromb Time International Ratio 1.1 (0.9-1.1) Activated Partial Thromboplast Time 31 SEC (23-33) Sodium Level 137 MMOL/L (136-145) Potassium Level 3.6 MMOL/L (3.5-5.1) Chloride Level 106 MMOL/L (98-107) Carbon Dioxide Level 22 MMOL/L (21-32) Anion Gap 9 mmol/L (5-15) Blood Urea Nitrogen 7 mg/dL (7-18) Creatinine 1.3 MG/DL (0.55-1.30) Estimat Glomerular Filtration Rate mL/min (>60) Glucose Level 142 MG/DL (74-106) H Calcium Level 8.3 MG/DL (8.5-10.1) L Objective General Appearance: no apparent distress, alert, GCS 15, non-toxic HEENT: normocephalic, atraumatic, bilateral eye PERRL, EOMI Neck: Negative JVD, carotid upstroke 2+ with no bruit. Respiratory: normal breath sounds, speaking full sentences Cardiovascular: regular rate, rhythm, normal S1S2, no murmurs, gallops or rubs. Gastrointestinal: normal bowel sounds, non tender, soft, non-distended, no guarding, no rebound Genitourinary: normal inspection, no CVA tenderness Musculoskeletal: No edema, clubbing or cyanosis. SILVA VALENZUELA Jan 27, 2017 23:49
[2017-01-28] VITALS (7 sets, daily range): BP systolic 108–130; BP diastolic 50–75
[2017-01-28] MEDS: ceFAZolin 2gm/50ml Premix 50 ML IV SCH ×3 (05:44→22:13)
[2017-01-28 05:47] LABS: MEAN CORPUSCULAR HEMOGLOBIN 29.7 PG (27.0-31.0); MEAN CORPUSCULAR HGB CONC 32.3 G/DL (32.0-36.0); MEAN CORPUSCULAR VOLUME 92 FL (80-99); MEAN PLATELET VOLUME 5.5 FL (6.5-10.1); PLATELET COUNT 181 K/UL (150-450); RED BLOOD COUNT 2.25 M/UL (4.70-6.10); RED CELL DISTRIBUTION WIDTH 15.7 % (11.6-14.8); WHITE BLOOD COUNT 2.6 K/UL (4.8-10.8)
[2017-01-28 06:12] LABS: ANION GAP 8 mmol/L (5-15); CALCIUM 8.1 MG/DL (8.5-10.1); CARBON DIOXIDE 23 MMOL/L (21-32); CHLORIDE 105 MMOL/L (98-107); CREATININE 1.3 MG/DL (0.55-1.30); POTASSIUM 3.2 MMOL/L (3.5-5.1); SODIUM 136 MMOL/L (136-145)
[2017-01-28] MEDS ORDERED: Phenylephrine 10mg/ml Vial ONE (07:30)
[2017-01-28] MEDS ORDERED: Dexamethasone 4mg/ml vial ONE (07:30)
[2017-01-28] MEDS ORDERED: Sodium Chloride 10ml vial INJ ONE (07:30)
[2017-01-28] MEDS ORDERED: Glycopyrrolate 0.2mg/ml 1ml Vial ONE (07:30)
[2017-01-28 08:41] LABS: ANISOCYTOSIS 1+; BAND NEUTROPHILS % (MANUAL) 0 % (0-8); BASOPHILS % (MANUAL) 0 % (0-2); EOSINOPHILS % (MANUAL) 1 % (0-3); HYPOCHROMASIA 1+; LYMPHOCYTES % (MANUAL) 21 % (20-45); NEUTROPHILS % (MANUAL) 71 % (45-75); PLATELET ESTIMATE ADEQUATE; TOTAL CELLS COUNTED 100
[2017-01-28 08:43] LABS: PLATELET MORPHOLOGY NORMAL
[2017-01-28] MEDS: Heparin 5000 units/ml inj SUBQ SCH ×3 (09:00→22:15)
[2017-01-28] MEDS: Pantoprazole Inj IVP SCH (09:20)
[2017-01-28] MEDS: Hydromorphone 0.5mg/0.5ml inj IVP PRN ×3 (09:49→20:40)
--- NOTE | 2017-01-28 09:50 | General Progress Note ---
Progress Note Progress Note Surgery patient seen and examined at bedside. no acute events. states he is doing okay. pain but controlled with pain meds. no nausea or emesis. no fevers. afebrile, HD stable, labs reviewed. on exam abdomen soft, no distended, noted some bowel sounds, incisions c/d/i. up in chair this AM. Anemia- transfuse 1 unit PRBC. recheck labs this evening okay to trial sips of clear liquids. do not advance continue lopez for 1 more day. need accurate urine output ambulate and out of bed pt/ot heparin this evening incentive spirometry POD #1 s/p lap assisted left colectomy for large near obstructing tumor in distal transverse colon. doing well post op and recovering. with multiple comorbidities he is very high risk for complications post op but has been doing remarkably well. will keep close eye on him. thank you. Nicholas Danielle Jan 28, 2017 09:50
--- NOTE | 2017-01-28 10:30 | 48 Hour Post Anesthesia Eval ---
Post Anesthesia Evaluation Procedure: EGD Date of Evaluation: Jan 28, 2017 Time of Evaluation: 10:00 Blood Pressure Systolic: 170 0: 95 Pulse Rate: 78 Respiratory Rate: 16 Temperature (Fahrenheit): 99 O2 Sat by Pulse Oximetry: 99 Airway: patent Nausea: No Vomiting: No Pain Intensity: 0 If pain is > 6 Comment: 0 Hydration Status: adequate Mental Status/LOC: patient returned to baseline Post-Anesthesia Complications: none Follow-up care needed: patient intructions given Levi Arthur M.D. Jan 28, 2017 10:30
--- NOTE | 2017-01-28 10:51 | GI Progress Note ---
Assessment/Plan Problems: (1) OB + stool ICD Codes: R19.5 - Other fecal abnormalities SNOMED: 41167737, 123754182 (2) ? colon mass (3) Altered level of consciousness ICD Codes: R40.4 - Transient alteration of awareness SNOMED: 4636817 (4) DM (diabetes mellitus) ICD Codes: E11.9 - Type 2 diabetes mellitus without complications SNOMED: 50607707 (5) Multiple myeloma ICD Codes: C90.00 - Multiple myeloma not having achieved remission SNOMED: 683584225 (6) Anemia ICD Codes: D64.9 - Anemia, unspecified SNOMED: 033944187 Qualifiers: Qualified Codes: D64.9 - Anemia, unspecified (7) Encephalopathy ICD Codes: G93.40 - Encephalopathy, unspecified SNOMED: 05262859 Status: stable Status Narrative Discussed with Dr. Heller. Assessment/Plan s/p colonoscopy SUMMARY FINDINGS: 1. Gastritis, status post biopsy. 2. Small hiatal hernia. 3. Large colonic polyp, which was biopsied and tattooed for future surgeries. 4. Two other colonic polyps removed from hepatic flexure area. See above for details. 5. Diverticulosis. 6. Internal hemorrhoids. POD #1 s/p lap assisted left colectomy for large near obstructing tumor in distal transverse colon. RECOMMENDATIONS: post op management per surgical follow biopsy results of colonoscopy >> negative for malignancy monitor H&H, prn transfusions ppi fu CEA, labs The patient was seen and examined at bedside and all new and available data was reviewed in the patients chart. I agree with the above findings, impression and plan. (Patient seen earlier today. Signature stamp does not reflect patient encounter time.). - Beata Heller MD Subjective Subjective limited Objective Last 24 Hour Vital Signs Date Time Temp Pulse Resp B/P (MAP) Pulse Ox O2 Delivery O2 Flow Rate FiO2 01/28/17 10:30 78 16 99 01/28/17 08:27 98.1 74 17 111/50 95 Room Air 01/28/17 06:14 97.7 01/28/17 04:00 Nasal Cannula 3.0 01/28/17 04:00 97.7 75 20 108/57 100 01/28/17 00:43 97.7 71 20 109/54 100 01/28/17 00:00 Nasal Cannula 3.0 01/27/17 20:34 97.9 86 18 115/60 100 01/27/17 20:00 Nasal Cannula 3.0 01/27/17 16:00 Nasal Cannula 3.0 01/27/17 15:57 97.9 84 19 113/65 100 01/27/17 12:50 Nasal Cannula 3.0 01/27/17 12:48 97.6 83 19 124/69 100 01/27/17 12:30 98.6 01/27/17 12:25 98.6 75 16 106/53 100 Nasal Cannula 3.0 01/27/17 12:15 81 18 110/54 100 Nasal Cannula 3.0 01/27/17 12:07 79 20 116/61 100 Nasal Cannula 3.0 01/27/17 12:02 78 17 100 01/27/17 11:50 75 21 128/61 100 Nasal Cannula 3.0 01/27/17 11:40 78 23 123/56 100 Nasal Cannula 3.0 01/27/17 11:30 74 24 117/60 100 Simple Mask 6.0 01/27/17 11:19 75 23 111/60 100 Simple Mask 6.0 01/27/17 11:14 75 26 118/57 100 Simple Mask 6.0 01/27/17 11:09 98.5 78 26 110/58 100 Simple Mask 6.0 Laboratory Tests Test 01/27/17 12:50 01/28/17 05:00 White Blood Count 2.2 K/UL (4.8-10.8) L 2.6 K/UL (4.8-10.8) L Red Blood Count 2.52 M/UL (4.70-6.10) L 2.25 M/UL (4.70-6.10) L Hemoglobin 7.2 G/DL (14.2-18.0) L 6.7 G/DL (14.2-18.0) *L Hematocrit 23.2 % (42.0-52.0) L 20.7 % (42.0-52.0) L Mean Corpuscular Volume 92 FL (80-99) 92 FL (80-99) Mean Corpuscular Hemoglobin 28.6 PG (27.0-31.0) 29.7 PG (27.0-31.0) Mean Corpuscular Hemoglobin Concent 31.1 G/DL (32.0-36.0) L 32.3 G/DL (32.0-36.0) Red Cell Distribution Width 15.3 % (11.6-14.8) H 15.7 % (11.6-14.8) H Platelet Count 175 K/UL (150-450) 181 K/UL (150-450) Mean Platelet Volume 5.3 FL (6.5-10.1) L 5.5 FL (6.5-10.1) L Neutrophils (%) (Auto) % (45.0-75.0) % (45.0-75.0) Lymphocytes (%) (Auto) % (20.0-45.0) % (20.0-45.0) Monocytes (%) (Auto) % (1.0-10.0) % (1.0-10.0) Eosinophils (%) (Auto) % (0.0-3.0) % (0.0-3.0) Basophils (%) (Auto) % (0.0-2.0) % (0.0-2.0) Differential Total Cells Counted 100 100 Neutrophils % (Manual) 82 % (45-75) H 71 % (45-75) Lymphocytes % (Manual) 10 % (20-45) L 21 % (20-45) Monocytes % (Manual) 7 % (1-10) 7 % (1-10) Eosinophils % (Manual) 1 % (0-3) 1 % (0-3) Basophils % (Manual) 0 % (0-2) 0 % (0-2) Band Neutrophils 0 % (0-8) 0 % (0-8) Platelet Estimate Adequate Adequate Platelet Morphology Normal Normal Hypochromasia 1+ 1+ Anisocytosis 1+ 1+ Prothrombin Time 11.4 SEC (9.30-11.50) Prothromb Time International Ratio 1.1 (0.9-1.1) Activated Partial Thromboplast Time 31 SEC (23-33) Sodium Level 137 MMOL/L (136-145) 136 MMOL/L (136-145) Potassium Level 3.6 MMOL/L (3.5-5.1) 3.2 MMOL/L (3.5-5.1) L Chloride Level 106 MMOL/L (98-107) 105 MMOL/L (98-107) Carbon Dioxide Level 22 MMOL/L (21-32) 23 MMOL/L (21-32) Anion Gap 9 mmol/L (5-15) 8 mmol/L (5-15) Blood Urea Nitrogen 7 mg/dL (7-18) 7 mg/dL (7-18) Creatinine 1.3 MG/DL (0.55-1.30) 1.3 MG/DL (0.55-1.30) Estimat Glomerular Filtration Rate mL/min (>60) mL/min (>60) Glucose Level 142 MG/DL (74-106) H 139 MG/DL (74-106) H Calcium Level 8.3 MG/DL (8.5-10.1) L 8.1 MG/DL (8.5-10.1) L Height (Feet): 5 Height (Inches): 5.00 Weight (Pounds): 135 General Appearance: WD/WN, no apparent distress, alert, thin Cardiovascular: normal rate Respiratory/Chest: normal breath sounds, no respiratory distress Abdominal Exam: normal bowel sounds, non tender, soft, incision site - surgical site Extremities: non-tender Kady Verma N.P. Jan 28, 2017 10:51 EMILIA HELLER Feb 01, 2017 10:26
--- NOTE | 2017-01-28 12:39 | Infectious Diseases Prog Note ---
Assessment/Plan Assessment/Plan A. Sepsis, SIRS resolved Severe anemia Multiple myeloma DM Cholelithiasis Diverticulosis Fatty liver colon mass s/p left colectomy P: discontinue perioperative Cefazolin Subjective ROS Limited/Unobtainable: No Constitutional: Reports: no symptoms Respiratory: Reports: no symptoms Cardiovascular: Reports: no symptoms Gastrointestinal/Abdominal: Reports: other - pain Genitourinary: Reports: no symptoms Allergies: Coded Allergies: No Known Allergies (Unverified , 01/18/17) Objective Vital Signs Last 24 Hour Vital Signs Date Time Temp Pulse Resp B/P (MAP) Pulse Ox O2 Delivery O2 Flow Rate FiO2 01/28/17 11:41 98.1 89 18 108/58 99 Room Air 01/28/17 11:27 97.4 88 18 109/59 100 Room Air 01/28/17 10:30 78 16 99 01/28/17 10:19 98.1 01/28/17 08:27 98.1 74 17 111/50 95 Room Air 01/28/17 06:14 97.7 01/28/17 04:00 Nasal Cannula 3.0 01/28/17 04:00 97.7 75 20 108/57 100 01/28/17 00:43 97.7 71 20 109/54 100 01/28/17 00:00 Nasal Cannula 3.0 01/27/17 20:34 97.9 86 18 115/60 100 01/27/17 20:00 Nasal Cannula 3.0 01/27/17 16:00 Nasal Cannula 3.0 01/27/17 15:57 97.9 84 19 113/65 100 01/27/17 12:50 Nasal Cannula 3.0 01/27/17 12:48 97.6 83 19 124/69 100 Height (Feet): 5 Height (Inches): 5.00 Weight (Pounds): 135 General Appearance: no acute distress HEENT: mucous membranes moist Respiratory/Chest: lungs clear Cardiovascular: normal rate Abdomen: soft, non tender Extremities: no edema Neurologic/Psychiatric: alert, oriented x 3, responsive Laboratory Tests Test 01/27/17 12:50 01/28/17 05:00 White Blood Count 2.2 K/UL (4.8-10.8) L 2.6 K/UL (4.8-10.8) L Red Blood Count 2.52 M/UL (4.70-6.10) L 2.25 M/UL (4.70-6.10) L Hemoglobin 7.2 G/DL (14.2-18.0) L 6.7 G/DL (14.2-18.0) *L Hematocrit 23.2 % (42.0-52.0) L 20.7 % (42.0-52.0) L Mean Corpuscular Volume 92 FL (80-99) 92 FL (80-99) Mean Corpuscular Hemoglobin 28.6 PG (27.0-31.0) 29.7 PG (27.0-31.0) Mean Corpuscular Hemoglobin Concent 31.1 G/DL (32.0-36.0) L 32.3 G/DL (32.0-36.0) Red Cell Distribution Width 15.3 % (11.6-14.8) H 15.7 % (11.6-14.8) H Platelet Count 175 K/UL (150-450) 181 K/UL (150-450) Mean Platelet Volume 5.3 FL (6.5-10.1) L 5.5 FL (6.5-10.1) L Neutrophils (%) (Auto) % (45.0-75.0) % (45.0-75.0) Lymphocytes (%) (Auto) % (20.0-45.0) % (20.0-45.0) Monocytes (%) (Auto) % (1.0-10.0) % (1.0-10.0) Eosinophils (%) (Auto) % (0.0-3.0) % (0.0-3.0) Basophils (%) (Auto) % (0.0-2.0) % (0.0-2.0) Differential Total Cells Counted 100 100 Neutrophils % (Manual) 82 % (45-75) H 71 % (45-75) Lymphocytes % (Manual) 10 % (20-45) L 21 % (20-45) Monocytes % (Manual) 7 % (1-10) 7 % (1-10) Eosinophils % (Manual) 1 % (0-3) 1 % (0-3) Basophils % (Manual) 0 % (0-2) 0 % (0-2) Band Neutrophils 0 % (0-8) 0 % (0-8) Platelet Estimate Adequate Adequate Platelet Morphology Normal Normal Hypochromasia 1+ 1+ Anisocytosis 1+ 1+ Prothrombin Time 11.4 SEC (9.30-11.50) Prothromb Time International Ratio 1.1 (0.9-1.1) Activated Partial Thromboplast Time 31 SEC (23-33) Sodium Level 137 MMOL/L (136-145) 136 MMOL/L (136-145) Potassium Level 3.6 MMOL/L (3.5-5.1) 3.2 MMOL/L (3.5-5.1) L Chloride Level 106 MMOL/L (98-107) 105 MMOL/L (98-107) Carbon Dioxide Level 22 MMOL/L (21-32) 23 MMOL/L (21-32) Anion Gap 9 mmol/L (5-15) 8 mmol/L (5-15) Blood Urea Nitrogen 7 mg/dL (7-18) 7 mg/dL (7-18) Creatinine 1.3 MG/DL (0.55-1.30) 1.3 MG/DL (0.55-1.30) Estimat Glomerular Filtration Rate mL/min (>60) mL/min (>60) Glucose Level 142 MG/DL (74-106) H 139 MG/DL (74-106) H Calcium Level 8.3 MG/DL (8.5-10.1) L 8.1 MG/DL (8.5-10.1) L Current Medications Medications (Trade) Dose Ordered Sig/Ashli Route PRN Reason Start Time Stop Time Status Last Admin Dose Admin Acetaminophen (Tylenol) 650 mg Q4H PRN ORAL Mild Pain/Temp > 100.5 01/23/17 16:00 02/18/17 00:00 Cefazolin Sodium 50 ml @ 100 mls/hr Q8HR IV 01/27/17 14:00 02/03/17 13:59 01/28/17 05:44 Dextrose/ Electrolytes 1,000 ml @ 100 mls/hr Q10H IV 01/26/17 18:30 02/25/17 18:29 01/27/17 23:56 Diphenhydramine HCl (Benadryl) 12.5 mg Q6H PRN IVP Itching/Pruritis 01/27/17 11:45 02/26/17 11:44 Heparin Sodium (Porcine) (Heparin 5000 units/ml) 5,000 units EVERY 8 HOURS SUBQ 01/28/17 09:00 02/27/17 08:59 Hydromorphone HCl (Dilaudid) 0.5 mg Q3H PRN IVP Pain Score 1-3 01/27/17 11:45 02/03/17 11:44 Hydromorphone HCl (Dilaudid) 1 mg Q3H PRN IVP pain score 4-6 01/28/17 09:45 02/04/17 09:44 01/28/17 09:49 Hydromorphone HCl (Dilaudid) 2 mg Q3H PRN IVP pain score 7-10 01/27/17 11:45 02/03/17 11:44 01/28/17 05:44 Metoclopramide HCl (Reglan) 10 mg Q6H PRN IVP Nausea & Vomiting 01/27/17 11:45 02/26/17 11:44 Metronidazole 100 ml @ 100 mls/hr Q8HR IVPB 01/26/17 22:00 02/02/17 21:59 01/28/17 06:48 Pantoprazole (Protonix) 40 mg DAILY IVP 01/28/17 09:00 02/27/17 08:59 01/28/17 09:20 Potassium Chloride (K-Dur) 40 meq DAILY ORAL 01/26/17 09:00 02/23/17 10:29 01/28/17 09:20 CHINEDU OSORIO Jan 28, 2017 12:39
[2017-01-28] MEDS: D5 1/2NS w/KCl 20mEq 1,000 ML IV SCH (14:15)
--- NOTE | 2017-01-28 14:32 | General Progress Note ---
Assessment/Plan Assessment/Plan ASSESSMENT AND RECOMMENDATIONS: # Drop in H/H post surgery --> to receive transfusion today #. Multiple myeloma. --> Was previously on Revlimid, which can potentially cause myelosuppression --> outpatient followup #. 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 Continue to closely monitor. --> work up has been reviewed #. Mutliple colonic masses --> polyps negative for malignancy per pathology report --> s/p lap assisted colectomy #. Hypokalemia Subjective Allergies: Coded Allergies: No Known Allergies (Unverified , 01/18/17) All Systems: reviewed and negative except above Subjective no complaints, HH dropping post op,to receive blood Objective Last 24 Hour Vital Signs Date Time Temp Pulse Resp B/P (MAP) Pulse Ox O2 Delivery O2 Flow Rate FiO2 01/28/17 11:41 98.1 89 18 108/58 99 Room Air 01/28/17 11:27 97.4 88 18 109/59 100 Room Air 01/28/17 10:30 78 16 99 01/28/17 10:19 98.1 01/28/17 08:27 98.1 74 17 111/50 95 Room Air 01/28/17 06:14 97.7 01/28/17 04:00 Nasal Cannula 3.0 01/28/17 04:00 97.7 75 20 108/57 100 01/28/17 00:43 97.7 71 20 109/54 100 01/28/17 00:00 Nasal Cannula 3.0 01/27/17 20:34 97.9 86 18 115/60 100 01/27/17 20:00 Nasal Cannula 3.0 01/27/17 16:00 Nasal Cannula 3.0 01/27/17 15:57 97.9 84 19 113/65 100 Intake and Output 01/28/17 01/29/17 19:00 07:00 Intake Total 360 ml Balance 360 ml Intake Oral 360 ml Laboratory Tests 01/28/17 05:00: White Blood Count 2.6L, Red Blood Count 2.25L, Hemoglobin 6.7*L, Hematocrit 20.7L, Mean Corpuscular Volume 92, Mean Corpuscular Hemoglobin 29.7, Mean Corpuscular Hemoglobin Concent 32.3, Red Cell Distribution Width 15.7H, Platelet Count 181, Mean Platelet Volume 5.5L, Neutrophils (%) (Auto) , Lymphocytes (%) (Auto) , Monocytes (%) (Auto) , Eosinophils (%) (Auto) , Basophils (%) (Auto) , Differential Total Cells Counted 100, Neutrophils % ( Manual) 71, Lymphocytes % (Manual) 21, Monocytes % (Manual) 7, Eosinophils % ( Manual) 1, Basophils % (Manual) 0, Band Neutrophils 0, Platelet Estimate Adequate, Platelet Morphology Normal, Hypochromasia 1+, Anisocytosis 1+, Sodium Level 136, Potassium Level 3.2L, Chloride Level 105, Carbon Dioxide Level 23, Anion Gap 8, Blood Urea Nitrogen 7, Creatinine 1.3, Estimat Glomerular Filtration Rate , Glucose Level 139H, Calcium Level 8.1L Height (Feet): 5 Height (Inches): 5.00 Weight (Pounds): 135 General Appearance: WD/WN EENT: PERRL/EOMI Neck: normal alignment Cardiovascular: normal peripheral pulses Respiratory/Chest: normal breath sounds Abdomen: non tender, soft Extremities: non-tender Jose Luis Deluna Jan 28, 2017 14:32
--- NOTE | 2017-01-28 15:47 | Nephrology Progress Note ---
Assessment/Plan Problem List: (1) Renal insufficiency (2) Anemia (3) Multiple myeloma (4) DM (diabetes mellitus) (5) Altered level of consciousness Assessment Severe Anemia, improved Proteinuria- HypoAlbuminemia- Low K- Low Na- MM- DMII- Plan stable- Post OP day i down on IV fluid- Po KCL liquid diet K supplement- as needed 24 H urine Protein 1.6 grams monitor renal parameters- per consultants DC plaqnning Subjective ROS Limited/Unobtainable: No Objective Objective Last 24 Hour Vital Signs Date Time Temp Pulse Resp B/P (MAP) Pulse Ox O2 Delivery O2 Flow Rate FiO2 01/28/17 11:41 98.1 89 18 108/58 99 Room Air 01/28/17 11:27 97.4 88 18 109/59 100 Room Air 01/28/17 10:30 78 16 99 01/28/17 10:19 98.1 01/28/17 08:27 98.1 74 17 111/50 95 Room Air 01/28/17 06:14 97.7 01/28/17 04:00 Nasal Cannula 3.0 01/28/17 04:00 97.7 75 20 108/57 100 01/28/17 00:43 97.7 71 20 109/54 100 01/28/17 00:00 Nasal Cannula 3.0 01/27/17 20:34 97.9 86 18 115/60 100 01/27/17 20:00 Nasal Cannula 3.0 01/27/17 16:00 Nasal Cannula 3.0 01/27/17 15:57 97.9 84 19 113/65 100 Intake and Output 01/28/17 01/29/17 19:00 07:00 Intake Total 360 ml Balance 360 ml Intake Oral 360 ml Laboratory Tests 01/28/17 05:00: White Blood Count 2.6L, Red Blood Count 2.25L, Hemoglobin 6.7*L, Hematocrit 20.7L, Mean Corpuscular Volume 92, Mean Corpuscular Hemoglobin 29.7, Mean Corpuscular Hemoglobin Concent 32.3, Red Cell Distribution Width 15.7H, Platelet Count 181, Mean Platelet Volume 5.5L, Neutrophils (%) (Auto) , Lymphocytes (%) (Auto) , Monocytes (%) (Auto) , Eosinophils (%) (Auto) , Basophils (%) (Auto) , Differential Total Cells Counted 100, Neutrophils % ( Manual) 71, Lymphocytes % (Manual) 21, Monocytes % (Manual) 7, Eosinophils % ( Manual) 1, Basophils % (Manual) 0, Band Neutrophils 0, Platelet Estimate Adequate, Platelet Morphology Normal, Hypochromasia 1+, Anisocytosis 1+, Sodium Level 136, Potassium Level 3.2L, Chloride Level 105, Carbon Dioxide Level 23, Anion Gap 8, Blood Urea Nitrogen 7, Creatinine 1.3, Estimat Glomerular Filtration Rate , Glucose Level 139H, Calcium Level 8.1L Height (Feet): 5 Height (Inches): 5.00 Weight (Pounds): 135 General Appearance: no apparent distress Cardiovascular: normal rate Respiratory/Chest: decreased breath sounds Abdomen: distended Objective PE not changed SHWETHA GAMBOA Jan 28, 2017 15:47
[2017-01-28] MEDS ORDERED: KCl 10% 40mEq/30ml liquid ORAL ONE (16:30)
[2017-01-28] MEDS ORDERED: D5 1/2NS w/KCl 20mEq 1,000 ML IV SCH (16:30)
[2017-01-28 18:41] LABS: BASOPHILS % (AUTO) 0.9 % (0.0-2.0); EOSINOPHILS % (AUTO) 0.9 % (0.0-3.0); LYMPHOCYTES % (AUTO) 16.9 % (20.0-45.0); MEAN CORPUSCULAR HEMOGLOBIN 28.5 PG (27.0-31.0); MEAN CORPUSCULAR HGB CONC 31.6 G/DL (32.0-36.0); MEAN CORPUSCULAR VOLUME 90 FL (80-99); MEAN PLATELET VOLUME 5.3 FL (6.5-10.1); MONOCYTES % (AUTO) 6.8 % (1.0-10.0); NEUTROPHILS % (AUTO) 74.4 % (45.0-75.0); PLATELET COUNT 228 K/UL (150-450); RED BLOOD COUNT 3.14 M/UL (4.70-6.10); RED CELL DISTRIBUTION WIDTH 15.4 % (11.6-14.8); WHITE BLOOD COUNT 3.5 K/UL (4.8-10.8)
--- NOTE | 2017-01-28 21:22 | General Progress Note ---
Assessment/Plan Problem List: (1) CHF (congestive heart failure) ICD Codes: I50.9 - Heart failure, unspecified SNOMED: 52535106 Qualifiers: Qualified Codes: I50.9 - Heart failure, unspecified (2) Anemia ICD Codes: D64.9 - Anemia, unspecified SNOMED: 966132961 Qualifiers: Qualified Codes: D64.9 - Anemia, unspecified (3) Multiple myeloma ICD Codes: C90.00 - Multiple myeloma not having achieved remission SNOMED: 525346842 (4) DM (diabetes mellitus) ICD Codes: E11.9 - Type 2 diabetes mellitus without complications SNOMED: 79187582 (5) Altered level of consciousness ICD Codes: R40.4 - Transient alteration of awareness SNOMED: 3927261 (6) Renal insufficiency ICD Codes: N28.9 - Disorder of kidney and ureter, unspecified SNOMED: 941853917, 432690124 Status: progressing Assessment/Plan MM poor prognosis needs to go to snf s/p juarez colectomy for large colonic polyp anemia due to mm and colonic polyp diet started per surgeon afebrile anemia once cleared by surgeon will go to snf Subjective ROS Limited/Unobtainable: Yes Constitutional: Reports: no symptoms Allergies: Coded Allergies: No Known Allergies (Unverified , 01/18/17) Objective Last 24 Hour Vital Signs Date Time Temp Pulse Resp B/P (MAP) Pulse Ox O2 Delivery O2 Flow Rate FiO2 01/28/17 20:17 98.9 104 19 111/72 94 01/28/17 17:45 98.1 01/28/17 16:00 98.9 103 20 130/75 96 Room Air 01/28/17 11:41 98.1 89 18 108/58 99 Room Air 01/28/17 11:27 97.4 88 18 109/59 100 Room Air 01/28/17 10:30 78 16 99 01/28/17 08:27 98.1 74 17 111/50 95 Room Air 01/28/17 06:14 97.7 01/28/17 04:00 Nasal Cannula 3.0 01/28/17 04:00 97.7 75 20 108/57 100 01/28/17 00:43 97.7 71 20 109/54 100 01/28/17 00:00 Nasal Cannula 3.0 Intake and Output 01/28/17 01/29/17 19:00 07:00 Intake Total 720 ml Output Total 800 ml Balance -80 ml Intake Oral 720 ml Output Urine Total 800 ml Laboratory Tests 01/28/17 05:00: White Blood Count 2.6L, Red Blood Count 2.25L, Hemoglobin 6.7*L, Hematocrit 20.7L, Mean Corpuscular Volume 92, Mean Corpuscular Hemoglobin 29.7, Mean Corpuscular Hemoglobin Concent 32.3, Red Cell Distribution Width 15.7H, Platelet Count 181, Mean Platelet Volume 5.5L, Neutrophils (%) (Auto) , Lymphocytes (%) (Auto) , Monocytes (%) (Auto) , Eosinophils (%) (Auto) , Basophils (%) (Auto) , Differential Total Cells Counted 100, Neutrophils % ( Manual) 71, Lymphocytes % (Manual) 21, Monocytes % (Manual) 7, Eosinophils % ( Manual) 1, Basophils % (Manual) 0, Band Neutrophils 0, Platelet Estimate Adequate, Platelet Morphology Normal, Hypochromasia 1+, Anisocytosis 1+, Sodium Level 136, Potassium Level 3.2L, Chloride Level 105, Carbon Dioxide Level 23, Anion Gap 8, Blood Urea Nitrogen 7, Creatinine 1.3, Estimat Glomerular Filtration Rate , Glucose Level 139H, Calcium Level 8.1L 01/28/17 18:10: White Blood Count 3.5L, Red Blood Count 3.14L, Hemoglobin 9.0#L, Hematocrit 28.3 #L, Mean Corpuscular Volume 90, Mean Corpuscular Hemoglobin 28.5, Mean Corpuscular Hemoglobin Concent 31.6L, Red Cell Distribution Width 15.4H, Platelet Count 228, Mean Platelet Volume 5.3L, Neutrophils (%) (Auto) 74.4, Lymphocytes (%) (Auto) 16.9L, Monocytes (%) (Auto) 6.8, Eosinophils (%) (Auto) 0.9, Basophils (%) (Auto) 0.9 Height (Feet): 5 Height (Inches): 5.00 Weight (Pounds): 135 Abdomen: tender Parth Gallo MD Jan 28, 2017 21:22
--- NOTE | 2017-01-28 22:00 | Operative Note - Dictated ---
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 POSTOPERATIVE DIAGNOSIS: Large distal transverse colon near-obstructing tumor. OPERATION PERFORMED: Laparoscopic-assisted left colectomy. ATTENDING SURGEON: Nicholas Danielle M.D. OR SCRUB TECH SURGEON: None. ANESTHESIOLOGIST: Dr. Linda. ANESTHESIA: General GAS LEAK INSPECTOR. ESTIMATED BLOOD LOSS: 50 mL. IV FLUIDS: Please see anesthesia records. COMPLICATIONS: None. SPECIMENS: Left colectomy, sent to pathology for review. WOUND CLASSIFICATION: Class 3. ANTIBIOTICS: 2 g Ancef IV and Flagyl 500 mg given one hour prior to cut time. DRAINS: None. COUNTS: Sponge and needle count correct x2. PERTINENT OPERATIVE FINDINGS: 1. Large near-obstructing distal transverse colon tumor identified with both distortion of the colonic tissues and tattooing placed by GI. 2. Satisfactory proximal and distal staple with resection of left colon tumor. 3. Satisfactory anii-rt-ghew anastomosis after mobilization. 4. No liver masses or peritoneal implants. 5. Identification and preservation of the left ureter. 6. Significant descending colon and sigmoid diverticula. 7. Disposition to PACU in stable condition. INDICATIONS FOR PROCEDURE: The patient is an 81-year-old male who on colonoscopy was found to have multiple small polyps including one large distal transverse colon mass that was near-obstructing. Given the size of the mass and location and architecture, it was difficult for endoscopic resection; therefore, surgery was called. CT scan was reviewed. The patient was examined and the endoscopic findings were reviewed. The patient has a large near-obstructing left distal transverse colon mass, which after explaining the risks, benefits, and alternatives of surgery to the patient and family, decision was made to resect. Surgery was indicated. A laparoscopic-assisted left colectomy was planned and to be performed today. Consent signed and in chart. When discussing possibilities with the patient and family, discussion of both laparoscopic-assisted and open techniques were discussed. The possibility of a colostomy was discussed. Possible complications including, but not limited to bleeding, infection, anastomosis, failure, leak, wound infections, damage to organs, ischemic blood supply, and pneumonia were discussed in detail prior to obtaining consent. OPERATIVE NOTE: The patient was taken to the operating room and placed on the operating table in supine position with bilateral arms out. All bony prominences were well padded with gel pads. Preoperative time-out was taken identifying the patient, procedure, operative staff, and surgical staff. One hour prior to cut time, 2 g of IV Ancef and 500 mg IV Flagyl were given. General anesthesia was induced and the patient was intubated. A Bauer catheter was placed using standard sterile technique. The patient was placed in lithotomy position. SCDs were placed. The abdomen was then prepped and draped in standard surgical fashion. We began by making an infraumbilical incision using a fresh #11 scalpel, which was carried down to the fascia. The fascia was elevated and incised. Entry into the abdomen was confirmed visually with open Lizbeth technique and a 12 mm trocar was inserted. The abdomen was insufflated to 12 to 15 mmHg. The patient tolerated the insufflation well. The laparoscope was then inserted and the abdomen was inspected. Secondary trocars were then placed under direct visualization beginning with a 5 mm trocar in the epigastric region followed by a second 5 mm trocar in the right lower abdomen. The patient was then placed in the Trendelenburg position with the left side up to allow for small bowel to drop out of the operative field. The sigmoid was grasped and lifted to tent up the GEOFF. The location was identified and noted. The transverse colon was then inspected and the area of tattooing with the large distal transverse colon tumor was identified. Dissection was then started by incising the peritoneum at the level just above the promontory towards the ligament of Treitz. The splenic flexure was mobilized. Mobilization was carried at the transverse colon just proximal to the tumor where division was anticipated. During dissection, left ureter was identified and protected from harm's way for the entirety of the operation. The mobilization of splenic flexure was allowed for sufficient entire length of the colon to perform a tension-free primary anastomosis. The splenic flexure was taken down dividing the splenocolic ligament lifting the omentum off the distal transverse colon and joining the dissection with the mobilized descending colon laterally. Completion of the splenic flexure mobilization was then done medially by dividing the attachments of the mesentery and the transverse colon to the inferior borders of the tail of pancreas. Once good mobilization was identified with good proximal margin and distal margin, decision was made to begin our division of the specimen. Approximately 5 cm proximal to the tumor, a laparoscopic linear stapler was used to divide the transverse colon distal to the mid transverse colon in an area where good vascular blood flow was identified. Once this was completed, attention was turned to the distal aspect, at which time there was a significant amount of diverticular disease noted in the descending and sigmoid colon. An area on the sigmoid colon with minimal diverticular disease was identified and divided. At this time, the remaining mesentery was divided using a laparoscopic energy device. The left colon and GEOFF was identified and divided using laparoscopic clips and energy device. Once this was complete, the entirety of the specimen was mobilized with proximal and distal margins and mesentery. Decision was made at this time to make a small opening by enlarging the umbilical trocar site for opening to allow for a successful primary anastomosis. The abdomen was desufflated. Incision was extended in the umbilical midline incision as well as the fascial incision was extended with electrocautery. The specimen was removed and sent to pathology for review. The proximal and distal suture lines were identified and brought together and noted to be satisfactory without any tension when brought together. At this time, 3-0 silk stay sutures were placed where [id number] anastomosis supposed to to performed. Once satisfactory and ready for rbkz-jp-nwse anastomosis, an enterotomy was made in each section and a laparoscopic linear stapler was inserted and fired. A good healthy anastomosis was identified. The remaining defect was then closed in a two-layer fashion beginning with a 3-0 Vicryl suture followed by a 3-0 silk Lembert sutures. At this time, the anastomosis was checked and noted to be satisfactory and patent. The bowel was allowed to fall back into the operative field and noted to be without tension and compromise. Good blood supply was noted. At this time, we began conclusion of the procedure. The fascial incision was closed using a #0 PDS suture followed by washout of the wound and placement of skin sherita. The secondary trocars were still in place, and the abdomen was then re-insufflated and a 5 mm camera was inserted and the abdomen was inspected. No bleeding, leakage of contents, or abnormalities otherwise were noted. The anastomosis sat well and small bowel was without issues. No suction irrigation was necessary at this time. Secondary trocars were removed after the abdomen was allowed to be desufflated. At this time, the secondary trocar sites were closed using 4-0 Monocryl subcuticular sutures. Following this, the patient was extubated and taken to postanesthesia care unit in stable condition. Nicholas Danielle M.D. DR: DERICK JOB#: [id number] CC: BRAD
--- NOTE | 2017-01-29 | Consultation ---
DATE OF CONSULTATION: 01/19/2017 CARDIOLOGY CONSULTATION CONSULTING PHYSICIAN: Kristopher Tompkins M.D. REFERRING PHYSICIAN: Parth Gallo M.D. REASON FOR CONSULTATION: Management of tachycardia. HISTORY OF PRESENT ILLNESS: The patient is a very unfortunate 81-year-old gentleman, who presents to the emergency department by EMS for evaluation of generalized weakness, lethargy, and low-grade fever. The patient also has had multiple falls at home. At the time of evaluation in the emergency department he was found to have blood pressure of 126/88 mmHg, his heart rate was 110, and he was febrile with temperature of 100.8 degrees Fahrenheit. Cardiology consultation was made at request of Dr. Gallo for management of tachycardia. The patient was admitted to telemetry for further evaluation and management. CT of head in the emergency department showed no evidence of acute processes. Chest x-ray was significant for no acute cardiopulmonary disease. Initial laboratory evaluation was significant for profound anemia with hemoglobin of 7.3. Also has severe electrolyte derangement Troponin I level was 0.013. PAST MEDICAL HISTORY: 1. History of multiple myeloma. 2. History of diabetes mellitus. PAST SURGICAL HISTORY: None. MEDICATIONS: List of medication, dexamethasone 4 mg p.o. daily, fentanyl patch one patch topical every 72 hours 50 mcg, hydromorphone 2 mg p.o. daily, Revlimid 15 mg p.o. daily, and tamsulosin 0.4 mg nightly. ALLERGIES: No known drug allergies. SOCIAL HISTORY: Denies any history of tobacco, alcohol, or illicit drug use. FAMILY HISTORY: No premature coronary artery disease in first-degree relatives. REVIEW OF SYSTEMS: HEENT: Denies any headache, diplopia, or blurred vision. CONSTITUTIONAL: Complains of generalized weakness and multiple falls. Complains of altered level of consciousness as well as fever. CARDIOVASCULAR: Denies any chest pain, shortness of breath, PND, orthopnea, or leg swelling. PULMONARY: Denies any cough, hemoptysis, or wheezing. GASTROINTESTINAL: Denies any nausea, vomiting, diarrhea, constipation, abdominal pain, or GI bleed. GENITOURINARY: Denies any hematuria, dysuria, or incontinence. NEUROLOGIC: Denies any motor dysfunction, sensory deficit, or altered speech. PHYSICAL EXAMINATION: VITAL SIGNS: Blood pressure was 126/88, respirations 16, pulse of 110, temperature 100.8 degrees Fahrenheit, and O2 saturation 98% on room air. GENERAL: The patient is a very unfortunate 81-year-old gentleman, alert and awake, in no apparent respiratory distress. HEENT: Atraumatic and normocephalic. Anicteric. Pupils are equal, round, and reactive to light and accommodation. Conjunctiva pallor. NECK: JVP less than 5 cm. No carotid bruit. Carotid upstrokes 2+ bilaterally. CARDIOVASCULAR: Normal S1 and S2. Regular rate and rhythm. Tachycardic. No murmurs, gallops, or rubs. PMI is at fourth intercostal space at the midclavicular line. LUNGS: Clear to auscultation bilaterally. ABDOMEN: Soft, nontender, and nondistended. No hepatosplenomegaly. Positive bowel sounds. EXTREMITIES: No evidence of edema, clubbing, or cyanosis. LABORATORY FINDINGS: Sodium was 133, potassium is 3.0, chloride 98, bicarbonate 26, BUN of 24, creatinine 1.5, glucose 162, and calcium is 8.6. Troponin I was 0.013. ProBNP was 1892. INR was 1.1. WBC was 7.5, hemoglobin of 7.3, hematocrit of 23.4, and platelet count is 169. Chest x-ray shows no acute cardiopulmonary disease. A 12-lead electrocardiogram was significant for sinus tachycardia rate of 98 with right bundle-branch block, LVH. ASSESSMENT AND PLAN: The patient is a very unfortunate 81-year-old gentleman, seen in Cardiology consultation at request of Dr. Gallo. 1. Sinus tachycardia. The patient most likely was hypovolemic as was evident on the BUN and creatinine ratio as well as low potassium levels. The patient responded well to hydration and sinus tachycardia is now resolved. A 2D echocardiography for this patient in 01/18/2017 showed normal left ventricular systolic function with left ventricular ejection fraction of about 55% to 60%. 2. Hypertensive heart disease with associated [id number] aortic regurgitation. 3. History of multiple myeloma. 4. Altered level of consciousness, questionable increased intracranial pressure. The patient on dexamethasone as an outpatient. CT of head was negative in this admission. 5. History of diabetes mellitus. I would like to thank, Dr. Gallo, for allowing me to participate in the care of this patient. Kristopher Tompkins M.D. DR: Tenisha JOB#: [id number] CC:
[2017-01-29 00:09] VITALS: BP 109/68
[2017-01-29] MEDS: Hydromorphone 0.5mg/0.5ml inj IVP PRN ×5 (01:51→21:06)
[2017-01-29 04:00] VITALS: BP 116/75
[2017-01-29] MEDS: ceFAZolin 2gm/50ml Premix 50 ML IV SCH (05:26)
[2017-01-29] MEDS: Heparin 5000 units/ml inj SUBQ SCH ×3 (05:29→21:05)
[2017-01-29 08:00] VITALS: BP 126/78
[2017-01-29 08:08] LABS: BASOPHILS % (AUTO) 0.5 % (0.0-2.0); EOSINOPHILS % (AUTO) 1.1 % (0.0-3.0); LYMPHOCYTES % (AUTO) 15.5 % (20.0-45.0); MEAN CORPUSCULAR HEMOGLOBIN 28.9 PG (27.0-31.0); MEAN CORPUSCULAR HGB CONC 32.2 G/DL (32.0-36.0); MEAN CORPUSCULAR VOLUME 90 FL (80-99); MEAN PLATELET VOLUME 5.3 FL (6.5-10.1); MONOCYTES % (AUTO) 5.4 % (1.0-10.0); NEUTROPHILS % (AUTO) 77.4 % (45.0-75.0); PLATELET COUNT 219 K/UL (150-450); RED BLOOD COUNT 3.11 M/UL (4.70-6.10); RED CELL DISTRIBUTION WIDTH 15.7 % (11.6-14.8); WHITE BLOOD COUNT 3.9 K/UL (4.8-10.8)
[2017-01-29 08:23] LABS: ALANINE AMINOTRANSFERASE < 6 U/L (12-78); ALBUMIN/GLOBULIN RATIO 0.3 (1.0-2.7); ANION GAP 8 mmol/L (5-15); ASPARTATE AMINO TRANSFERASE 47 U/L (15-37); CALCIUM 8.6 MG/DL (8.5-10.1); CARBON DIOXIDE 24 MMOL/L (21-32); CHLORIDE 102 MMOL/L (98-107); CREATININE 1.4 MG/DL (0.55-1.30); POTASSIUM 3.7 MMOL/L (3.5-5.1); SODIUM 134 MMOL/L (136-145); TOTAL PROTEIN 8.6 G/DL (6.4-8.2)
[2017-01-29] MEDS: Pantoprazole Inj IVP SCH (08:27)
--- NOTE | 2017-01-29 08:39 | General Progress Note ---
Assessment/Plan Problem List: (1) CHF (congestive heart failure) ICD Codes: I50.9 - Heart failure, unspecified SNOMED: 42577782 Qualifiers: Qualified Codes: I50.9 - Heart failure, unspecified (2) Anemia ICD Codes: D64.9 - Anemia, unspecified SNOMED: 407976620 Qualifiers: Qualified Codes: D64.9 - Anemia, unspecified (3) Multiple myeloma ICD Codes: C90.00 - Multiple myeloma not having achieved remission SNOMED: 052791500 (4) DM (diabetes mellitus) ICD Codes: E11.9 - Type 2 diabetes mellitus without complications SNOMED: 05999643 (5) Altered level of consciousness ICD Codes: R40.4 - Transient alteration of awareness SNOMED: 8901360 (6) Renal insufficiency ICD Codes: N28.9 - Disorder of kidney and ureter, unspecified SNOMED: 917300681, 219797886 Status: progressing Assessment/Plan multiple myeloma afebrile s/p juarez colectomy for large colonic polyp anemia due to mm and colonic polyp diet started per surgeon anemia once cleared by surgeon will go to snf Subjective ROS Limited/Unobtainable: Yes Allergies: Coded Allergies: No Known Allergies (Unverified , 01/18/17) Objective Last 24 Hour Vital Signs Date Time Temp Pulse Resp B/P (MAP) Pulse Ox O2 Delivery O2 Flow Rate FiO2 01/29/17 04:00 97.9 98 20 116/75 95 01/29/17 00:09 98.8 99 20 109/68 94 01/28/17 20:17 98.9 104 19 111/72 94 01/28/17 17:45 98.1 01/28/17 16:00 98.9 103 20 130/75 96 Room Air 01/28/17 11:41 98.1 89 18 108/58 99 Room Air 01/28/17 11:27 97.4 88 18 109/59 100 Room Air 01/28/17 10:30 78 16 99 Laboratory Tests 01/28/17 18:10: White Blood Count 3.5L, Red Blood Count 3.14L, Hemoglobin 9.0#L, Hematocrit 28.3 #L, Mean Corpuscular Volume 90, Mean Corpuscular Hemoglobin 28.5, Mean Corpuscular Hemoglobin Concent 31.6L, Red Cell Distribution Width 15.4H, Platelet Count 228, Mean Platelet Volume 5.3L, Neutrophils (%) (Auto) 74.4, Lymphocytes (%) (Auto) 16.9L, Monocytes (%) (Auto) 6.8, Eosinophils (%) (Auto) 0.9, Basophils (%) (Auto) 0.9 01/29/17 06:00: White Blood Count 3.9L, Red Blood Count 3.11L, Hemoglobin 9.0L, Hematocrit 27.9L , Mean Corpuscular Volume 90, Mean Corpuscular Hemoglobin 28.9, Mean Corpuscular Hemoglobin Concent 32.2, Red Cell Distribution Width 15.7H, Platelet Count 219, Mean Platelet Volume 5.3L, Neutrophils (%) (Auto) 77.4H, Lymphocytes (%) (Auto) 15.5L, Monocytes (%) (Auto) 5.4, Eosinophils (%) (Auto) 1.1, Basophils (%) (Auto) 0.5, Sodium Level 134L, Potassium Level 3.7, Chloride Level 102, Carbon Dioxide Level 24, Anion Gap 8, Blood Urea Nitrogen 5L, Creatinine 1.4H, Estimat Glomerular Filtration Rate , Glucose Level 132H, Calcium Level 8.6, Total Bilirubin 0.4, Aspartate Amino Transf (AST/SGOT) 47H, Alanine Aminotransferase (ALT/SGPT) < 6L, Alkaline Phosphatase 67, Total Protein 8.6H, Albumin 2.0L, Globulin 6.6, Albumin/Globulin Ratio 0.3L Height (Feet): 5 Height (Inches): 5.00 Weight (Pounds): 135 Cardiovascular: normal rate Respiratory/Chest: lungs clear Abdomen: soft Parth Gallo MD Jan 29, 2017 08:39
--- NOTE | 2017-01-29 09:22 | General Progress Note ---
Progress Note Progress Note Surgery: doing well. no acute events. states she feels okay. tolerated clear liquids. no n/v/f/c. ambulatory. pain requiring pain meds. good uop. no flatus or BM yet. Afebrile, tachycardic at times, HD stable. H/H improved after 1 PRBC yesterday. Abdomen soft, incisional tenderness, a little distended today. -keep on clear liquids. not ready to be advanced yet -decrease IV fluids -d/c Abx -ambulate and OOB -PT/OT -incentive spirometry. -may for ileus. will keep close eye. Nicholas Danielle Jan 29, 2017 09:22
[2017-01-29] MEDS ORDERED: Hydromorphone 0.5mg/0.5ml inj IVP PRN (09:30)
--- NOTE | 2017-01-29 09:38 | Nephrology Progress Note ---
Assessment/Plan Problem List: (1) Renal insufficiency (2) Anemia (3) Multiple myeloma (4) DM (diabetes mellitus) (5) Altered level of consciousness Assessment Cr up to 1.4 Severe Anemia, improved Proteinuria- HypoAlbuminemia- Low K- Low Na- MM- DMII- Plan stable- Post OP day 2 One liter NS Po KCL liquid diet K supplement- as needed 24 H urine Protein 1.6 grams monitor renal parameters- per consultants DC plaqnning Subjective ROS Limited/Unobtainable: No Constitutional: Reports: malaise Objective Objective Last 24 Hour Vital Signs Date Time Temp Pulse Resp B/P (MAP) Pulse Ox O2 Delivery O2 Flow Rate FiO2 01/29/17 09:01 97.9 01/29/17 08:00 98.5 105 18 126/78 95 Room Air 01/29/17 04:00 97.9 98 20 116/75 95 01/29/17 00:09 98.8 99 20 109/68 94 01/28/17 20:17 98.9 104 19 111/72 94 01/28/17 16:00 98.9 103 20 130/75 96 Room Air 01/28/17 11:41 98.1 89 18 108/58 99 Room Air 01/28/17 11:27 97.4 88 18 109/59 100 Room Air 01/28/17 10:30 78 16 99 Intake and Output 01/29/17 01/30/17 19:00 07:00 Intake Total 240 ml Balance 240 ml Intake Oral 240 ml Laboratory Tests 01/28/17 18:10: White Blood Count 3.5L, Red Blood Count 3.14L, Hemoglobin 9.0#L, Hematocrit 28.3 #L, Mean Corpuscular Volume 90, Mean Corpuscular Hemoglobin 28.5, Mean Corpuscular Hemoglobin Concent 31.6L, Red Cell Distribution Width 15.4H, Platelet Count 228, Mean Platelet Volume 5.3L, Neutrophils (%) (Auto) 74.4, Lymphocytes (%) (Auto) 16.9L, Monocytes (%) (Auto) 6.8, Eosinophils (%) (Auto) 0.9, Basophils (%) (Auto) 0.9 01/29/17 06:00: White Blood Count 3.9L, Red Blood Count 3.11L, Hemoglobin 9.0L, Hematocrit 27.9L , Mean Corpuscular Volume 90, Mean Corpuscular Hemoglobin 28.9, Mean Corpuscular Hemoglobin Concent 32.2, Red Cell Distribution Width 15.7H, Platelet Count 219, Mean Platelet Volume 5.3L, Neutrophils (%) (Auto) 77.4H, Lymphocytes (%) (Auto) 15.5L, Monocytes (%) (Auto) 5.4, Eosinophils (%) (Auto) 1.1, Basophils (%) (Auto) 0.5, Sodium Level 134L, Potassium Level 3.7, Chloride Level 102, Carbon Dioxide Level 24, Anion Gap 8, Blood Urea Nitrogen 5L, Creatinine 1.4H, Estimat Glomerular Filtration Rate , Glucose Level 132H, Calcium Level 8.6, Total Bilirubin 0.4, Aspartate Amino Transf (AST/SGOT) 47H, Alanine Aminotransferase (ALT/SGPT) < 6L, Alkaline Phosphatase 67, Total Protein 8.6H, Albumin 2.0L, Globulin 6.6, Albumin/Globulin Ratio 0.3L Height (Feet): 5 Height (Inches): 5.00 Weight (Pounds): 135 General Appearance: no apparent distress Objective PE not changed SHWETHA GAMBOA Jan 29, 2017 09:38
--- NOTE | 2017-01-29 10:59 | Infectious Diseases Prog Note ---
Assessment/Plan Assessment/Plan antibiotics : none A 1. fever improving 2. colon mass s/p left colectomy 3. DM 4. multiple myeloma P 1. continue off antibiotics Subjective ROS Limited/Unobtainable: Yes Allergies: Coded Allergies: No Known Allergies (Unverified , 01/18/17) Objective Vital Signs Last 24 Hour Vital Signs Date Time Temp Pulse Resp B/P (MAP) Pulse Ox O2 Delivery O2 Flow Rate FiO2 01/29/17 09:01 97.9 01/29/17 08:00 98.5 105 18 126/78 95 Room Air 01/29/17 04:00 97.9 98 20 116/75 95 01/29/17 00:09 98.8 99 20 109/68 94 01/28/17 20:17 98.9 104 19 111/72 94 01/28/17 16:00 98.9 103 20 130/75 96 Room Air 01/28/17 11:41 98.1 89 18 108/58 99 Room Air 01/28/17 11:27 97.4 88 18 109/59 100 Room Air Height (Feet): 5 Height (Inches): 5.00 Weight (Pounds): 135 Respiratory/Chest: lungs clear Cardiovascular: normal rate, regular rhythm, no gallop/murmur Abdomen: soft, non tender Extremities: no edema Laboratory Tests Test 01/28/17 18:10 01/29/17 06:00 White Blood Count 3.5 K/UL (4.8-10.8) L 3.9 K/UL (4.8-10.8) L Red Blood Count 3.14 M/UL (4.70-6.10) L 3.11 M/UL (4.70-6.10) L Hemoglobin 9.0 G/DL (14.2-18.0) #L 9.0 G/DL (14.2-18.0) L Hematocrit 28.3 % (42.0-52.0) #L 27.9 % (42.0-52.0) L Mean Corpuscular Volume 90 FL (80-99) 90 FL (80-99) Mean Corpuscular Hemoglobin 28.5 PG (27.0-31.0) 28.9 PG (27.0-31.0) Mean Corpuscular Hemoglobin Concent 31.6 G/DL (32.0-36.0) L 32.2 G/DL (32.0-36.0) Red Cell Distribution Width 15.4 % (11.6-14.8) H 15.7 % (11.6-14.8) H Platelet Count 228 K/UL (150-450) 219 K/UL (150-450) Mean Platelet Volume 5.3 FL (6.5-10.1) L 5.3 FL (6.5-10.1) L Neutrophils (%) (Auto) 74.4 % (45.0-75.0) 77.4 % (45.0-75.0) H Lymphocytes (%) (Auto) 16.9 % (20.0-45.0) L 15.5 % (20.0-45.0) L Monocytes (%) (Auto) 6.8 % (1.0-10.0) 5.4 % (1.0-10.0) Eosinophils (%) (Auto) 0.9 % (0.0-3.0) 1.1 % (0.0-3.0) Basophils (%) (Auto) 0.9 % (0.0-2.0) 0.5 % (0.0-2.0) Sodium Level 134 MMOL/L (136-145) L Potassium Level 3.7 MMOL/L (3.5-5.1) Chloride Level 102 MMOL/L (98-107) Carbon Dioxide Level 24 MMOL/L (21-32) Anion Gap 8 mmol/L (5-15) Blood Urea Nitrogen 5 mg/dL (7-18) L Creatinine 1.4 MG/DL (0.55-1.30) H Estimat Glomerular Filtration Rate mL/min (>60) Glucose Level 132 MG/DL (74-106) H Calcium Level 8.6 MG/DL (8.5-10.1) Total Bilirubin 0.4 MG/DL (0.2-1.0) Aspartate Amino Transf (AST/SGOT) 47 U/L (15-37) H Alanine Aminotransferase (ALT/SGPT) < 6 U/L (12-78) L Alkaline Phosphatase 67 U/L (46-116) Total Protein 8.6 G/DL (6.4-8.2) H Albumin 2.0 G/DL (3.4-5.0) L Globulin 6.6 g/dL Albumin/Globulin Ratio 0.3 (1.0-2.7) L BOGDAN ROBBINS Jan 29, 2017 10:59
[2017-01-29 12:00] VITALS: BP 123/79
[2017-01-29 16:00] VITALS: BP 128/76
--- NOTE | 2017-01-29 17:39 | Cardiology Progress Note ---
Assessment/Plan Assessment/Plan 1. Large transverse colon mass, s/p laparoscopic assisted left colectomy, POD # 2, no perioperative cardiac events, echo reveals normal LV systolic function. 2. Sinus tachycardia, resolved, continue hydration. 3. DM 4. Moderate MR, asymptomatic. 5. Multiple Myeloma Subjective Subjective Denies chest pain or SOB. Not on the telemetry unit. Objective Last 24 Hour Vital Signs Date Time Temp Pulse Resp B/P (MAP) Pulse Ox O2 Delivery O2 Flow Rate FiO2 01/29/17 16:00 97.3 64 20 128/76 97 Room Air 01/29/17 14:57 98.0 01/29/17 12:00 98.0 88 20 123/79 99 Room Air 01/29/17 09:01 97.9 01/29/17 08:00 98.5 105 18 126/78 95 Room Air 01/29/17 04:00 97.9 98 20 116/75 95 01/29/17 00:09 98.8 99 20 109/68 94 01/28/17 20:17 98.9 104 19 111/72 94 Intake and Output 01/29/17 01/30/17 19:00 07:00 Intake Total 240 ml Output Total 1100 ml Balance -860 ml Intake Oral 240 ml Output Urine Total 1100 ml 2D Echo: LVEF 55%, Mild LVH, LAE, Mod AR/MR, Grade I LVDD Laboratory Tests Test 01/28/17 18:10 01/29/17 06:00 White Blood Count 3.5 K/UL (4.8-10.8) L 3.9 K/UL (4.8-10.8) L Red Blood Count 3.14 M/UL (4.70-6.10) L 3.11 M/UL (4.70-6.10) L Hemoglobin 9.0 G/DL (14.2-18.0) #L 9.0 G/DL (14.2-18.0) L Hematocrit 28.3 % (42.0-52.0) #L 27.9 % (42.0-52.0) L Mean Corpuscular Volume 90 FL (80-99) 90 FL (80-99) Mean Corpuscular Hemoglobin 28.5 PG (27.0-31.0) 28.9 PG (27.0-31.0) Mean Corpuscular Hemoglobin Concent 31.6 G/DL (32.0-36.0) L 32.2 G/DL (32.0-36.0) Red Cell Distribution Width 15.4 % (11.6-14.8) H 15.7 % (11.6-14.8) H Platelet Count 228 K/UL (150-450) 219 K/UL (150-450) Mean Platelet Volume 5.3 FL (6.5-10.1) L 5.3 FL (6.5-10.1) L Neutrophils (%) (Auto) 74.4 % (45.0-75.0) 77.4 % (45.0-75.0) H Lymphocytes (%) (Auto) 16.9 % (20.0-45.0) L 15.5 % (20.0-45.0) L Monocytes (%) (Auto) 6.8 % (1.0-10.0) 5.4 % (1.0-10.0) Eosinophils (%) (Auto) 0.9 % (0.0-3.0) 1.1 % (0.0-3.0) Basophils (%) (Auto) 0.9 % (0.0-2.0) 0.5 % (0.0-2.0) Sodium Level 134 MMOL/L (136-145) L Potassium Level 3.7 MMOL/L (3.5-5.1) Chloride Level 102 MMOL/L (98-107) Carbon Dioxide Level 24 MMOL/L (21-32) Anion Gap 8 mmol/L (5-15) Blood Urea Nitrogen 5 mg/dL (7-18) L Creatinine 1.4 MG/DL (0.55-1.30) H Estimat Glomerular Filtration Rate mL/min (>60) Glucose Level 132 MG/DL (74-106) H Calcium Level 8.6 MG/DL (8.5-10.1) Total Bilirubin 0.4 MG/DL (0.2-1.0) Aspartate Amino Transf (AST/SGOT) 47 U/L (15-37) H Alanine Aminotransferase (ALT/SGPT) < 6 U/L (12-78) L Alkaline Phosphatase 67 U/L (46-116) Total Protein 8.6 G/DL (6.4-8.2) H Albumin 2.0 G/DL (3.4-5.0) L Globulin 6.6 g/dL Albumin/Globulin Ratio 0.3 (1.0-2.7) L Objective General Appearance: no apparent distress, alert, GCS 15, non-toxic HEENT: normocephalic, atraumatic, bilateral eye PERRL, EOMI Neck: Negative JVD, carotid upstroke 2+ with no bruit. Respiratory: normal breath sounds, speaking full sentences Cardiovascular: regular rate, rhythm, normal S1S2, no murmurs, gallops or rubs. Gastrointestinal: normal bowel sounds, non tender, soft, non-distended, no guarding, no rebound Genitourinary: normal inspection, no CVA tenderness Musculoskeletal: No edema, clubbing or cyanosis. SILVA VALENZUELA Jan 29, 2017 17:39
[2017-01-29 20:00] VITALS: BP 132/78
--- NOTE | 2017-01-29 21:05 | General Progress Note ---
Assessment/Plan Assessment/Plan (1) OB + stool ICD Codes: R19.5 - Other fecal abnormalities SNOMED: 61641177, 494097995 (2) ? colon mass (3) Altered level of consciousness ICD Codes: R40.4 - Transient alteration of awareness SNOMED: 7461847 (4) DM (diabetes mellitus) ICD Codes: E11.9 - Type 2 diabetes mellitus without complications SNOMED: 78604546 (5) Multiple myeloma ICD Codes: C90.00 - Multiple myeloma not having achieved remission SNOMED: 152512719 (6) Anemia ICD Codes: D64.9 - Anemia, unspecified SNOMED: 786741032 Qualifiers: Qualified Codes: D64.9 - Anemia, unspecified (7) Encephalopathy ICD Codes: G93.40 - Encephalopathy, unspecified SNOMED: 54491603 Status: stable Assessment/Plan s/p colonoscopy SUMMARY FINDINGS: 1. Gastritis, status post biopsy. 2. Small hiatal hernia. 3. Large colonic polyp, which was biopsied and tattooed for future surgeries. 4. Two other colonic polyps removed from hepatic flexure area. See above for details. 5. Diverticulosis. 6. Internal hemorrhoids. s/p lap assisted left colectomy for large near obstructing tumor in distal transverse colon. RECOMMENDATIONS: post op management per surgical follow biopsy results of colonoscopy >> negative for malignancy monitor H&H, prn transfusions ppi fu CEA, labs Subjective Allergies: Coded Allergies: No Known Allergies (Unverified , 01/18/17) Subjective Feels better abd pain less d/w DTR at bedside Objective Last 24 Hour Vital Signs Date Time Temp Pulse Resp B/P (MAP) Pulse Ox O2 Delivery O2 Flow Rate FiO2 01/29/17 20:00 98.6 106 18 132/78 97 Room Air 01/29/17 16:00 97.3 64 20 128/76 97 Room Air 01/29/17 14:57 98.0 01/29/17 12:00 98.0 88 20 123/79 99 Room Air 01/29/17 09:01 97.9 01/29/17 08:00 98.5 105 18 126/78 95 Room Air 01/29/17 04:00 97.9 98 20 116/75 95 01/29/17 00:09 98.8 99 20 109/68 94 Intake and Output 01/29/17 01/30/17 19:00 07:00 Intake Total 660 ml Output Total 1100 ml Balance -440 ml Intake Oral 660 ml Output Urine Total 1100 ml Laboratory Tests 01/29/17 06:00: White Blood Count 3.9L, Red Blood Count 3.11L, Hemoglobin 9.0L, Hematocrit 27.9L , Mean Corpuscular Volume 90, Mean Corpuscular Hemoglobin 28.9, Mean Corpuscular Hemoglobin Concent 32.2, Red Cell Distribution Width 15.7H, Platelet Count 219, Mean Platelet Volume 5.3L, Neutrophils (%) (Auto) 77.4H, Lymphocytes (%) (Auto) 15.5L, Monocytes (%) (Auto) 5.4, Eosinophils (%) (Auto) 1.1, Basophils (%) (Auto) 0.5, Sodium Level 134L, Potassium Level 3.7, Chloride Level 102, Carbon Dioxide Level 24, Anion Gap 8, Blood Urea Nitrogen 5L, Creatinine 1.4H, Estimat Glomerular Filtration Rate , Glucose Level 132H, Calcium Level 8.6, Total Bilirubin 0.4, Aspartate Amino Transf (AST/SGOT) 47H, Alanine Aminotransferase (ALT/SGPT) < 6L, Alkaline Phosphatase 67, Total Protein 8.6H, Albumin 2.0L, Globulin 6.6, Albumin/Globulin Ratio 0.3L Height (Feet): 5 Height (Inches): 5.00 Weight (Pounds): 135 Objective WDWN NCAT supple CTA RRR Soft Mild TTP abd non edema non focal DOUG CALI Jan 29, 2017 21:05
--- NOTE | 2017-01-29 22:23 | General Progress Note ---
Assessment/Plan Assessment/Plan ASSESSMENT AND RECOMMENDATIONS: # Drop in H/H post surgery -->better post one unit prbc #. Multiple myeloma. --> Was previously on Revlimid, which can potentially cause myelosuppression --> outpatient followup #. 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 Continue to closely monitor. --> work up has been reviewed #. Mutliple colonic masses --> polyps negative for malignancy per pathology report --> s/p lap assisted colectomy #. Hypokalemia Subjective Allergies: Coded Allergies: No Known Allergies (Unverified , 01/18/17) All Systems: reviewed and negative except above Subjective s/p blood transfusion Objective Last 24 Hour Vital Signs Date Time Temp Pulse Resp B/P (MAP) Pulse Ox O2 Delivery O2 Flow Rate FiO2 01/29/17 20:00 98.6 106 18 132/78 97 Room Air 01/29/17 16:00 97.3 64 20 128/76 97 Room Air 01/29/17 14:57 98.0 01/29/17 12:00 98.0 88 20 123/79 99 Room Air 01/29/17 09:01 97.9 01/29/17 08:00 98.5 105 18 126/78 95 Room Air 01/29/17 04:00 97.9 98 20 116/75 95 01/29/17 00:09 98.8 99 20 109/68 94 Intake and Output 01/29/17 01/30/17 19:00 07:00 Intake Total 660 ml Output Total 1100 ml Balance -440 ml Intake Oral 660 ml Output Urine Total 1100 ml Laboratory Tests 01/29/17 06:00: White Blood Count 3.9L, Red Blood Count 3.11L, Hemoglobin 9.0L, Hematocrit 27.9L , Mean Corpuscular Volume 90, Mean Corpuscular Hemoglobin 28.9, Mean Corpuscular Hemoglobin Concent 32.2, Red Cell Distribution Width 15.7H, Platelet Count 219, Mean Platelet Volume 5.3L, Neutrophils (%) (Auto) 77.4H, Lymphocytes (%) (Auto) 15.5L, Monocytes (%) (Auto) 5.4, Eosinophils (%) (Auto) 1.1, Basophils (%) (Auto) 0.5, Sodium Level 134L, Potassium Level 3.7, Chloride Level 102, Carbon Dioxide Level 24, Anion Gap 8, Blood Urea Nitrogen 5L, Creatinine 1.4H, Estimat Glomerular Filtration Rate , Glucose Level 132H, Calcium Level 8.6, Total Bilirubin 0.4, Aspartate Amino Transf (AST/SGOT) 47H, Alanine Aminotransferase (ALT/SGPT) < 6L, Alkaline Phosphatase 67, Total Protein 8.6H, Albumin 2.0L, Globulin 6.6, Albumin/Globulin Ratio 0.3L Height (Feet): 5 Height (Inches): 5.00 Weight (Pounds): 135 General Appearance: no apparent distress EENT: normal ENT inspection Neck: normal alignment Cardiovascular: normal peripheral pulses Respiratory/Chest: chest wall non-tender Edema: mild edema Neurologic: hospice clinical marketer II-XII grossly normal Jose Luis Deluna Jan 29, 2017 22:23
[2017-01-30] MEDS: Hydromorphone 0.5mg/0.5ml inj IVP PRN ×2 (01:19→09:00)
[2017-01-30 04:00] VITALS: BP 132/70
[2017-01-30] MEDS: Heparin 5000 units/ml inj SUBQ SCH ×3 (06:08→20:34)
[2017-01-30 07:48] LABS: ALANINE AMINOTRANSFERASE < 6 U/L (12-78); ALBUMIN/GLOBULIN RATIO 0.3 (1.0-2.7); ANION GAP 4 mmol/L (5-15); ASPARTATE AMINO TRANSFERASE 49 U/L (15-37); CALCIUM 9.2 MG/DL (8.5-10.1); CARBON DIOXIDE 29 MMOL/L (21-32); CHLORIDE 101 MMOL/L (98-107); CREATININE 1.4 MG/DL (0.55-1.30); MAGNESIUM 1.5 MG/DL (1.8-2.4); POTASSIUM 3.8 MMOL/L (3.5-5.1); SODIUM 134 MMOL/L (136-145); TOTAL PROTEIN 8.8 G/DL (6.4-8.2); URIC ACID 1.9 MG/DL (2.6-7.2)
[2017-01-30 08:35] VITALS: BP 133/94
[2017-01-30] MEDS: Pantoprazole Inj IVP SCH (09:00)
--- NOTE | 2017-01-30 09:32 | Infectious Diseases Prog Note ---
Assessment/Plan Assessment/Plan A. Sepsis, SIRS resolved Severe anemia Multiple myeloma DM Cholelithiasis Diverticulosis Fatty liver colon mass s/p left colectomy Tachycardia P: observe off antibiotic Subjective ROS Limited/Unobtainable: No Constitutional: Reports: no symptoms Respiratory: Reports: no symptoms Cardiovascular: Reports: palpitations Gastrointestinal/Abdominal: Reports: no symptoms Allergies: Coded Allergies: No Known Allergies (Unverified , 01/18/17) Objective Vital Signs Last 24 Hour Vital Signs Date Time Temp Pulse Resp B/P (MAP) Pulse Ox O2 Delivery O2 Flow Rate FiO2 01/30/17 08:35 97.7 116 20 133/94 98 Room Air 01/30/17 04:00 97.9 104 18 132/70 97 Room Air 01/29/17 20:00 98.6 106 18 132/78 97 Room Air 01/29/17 16:00 97.3 64 20 128/76 97 Room Air 01/29/17 14:57 98.0 01/29/17 12:00 98.0 88 20 123/79 99 Room Air Height (Feet): 5 Height (Inches): 5.00 Weight (Pounds): 135 General Appearance: no acute distress HEENT: mucous membranes moist Respiratory/Chest: lungs clear Cardiovascular: tachycardia Abdomen: distended, other - soft, surgical sherita clean Extremities: no edema Neurologic/Psychiatric: alert, oriented x 3, responsive Laboratory Tests Test 01/30/17 05:10 Sodium Level 134 MMOL/L (136-145) L Potassium Level 3.8 MMOL/L (3.5-5.1) Chloride Level 101 MMOL/L (98-107) Carbon Dioxide Level 29 MMOL/L (21-32) Anion Gap 4 mmol/L (5-15) L Blood Urea Nitrogen 10 mg/dL (7-18) Creatinine 1.4 MG/DL (0.55-1.30) H Estimat Glomerular Filtration Rate mL/min (>60) Glucose Level 119 MG/DL (74-106) H Uric Acid 1.9 MG/DL (2.6-7.2) L Calcium Level 9.2 MG/DL (8.5-10.1) Phosphorus Level 2.0 MG/DL (2.5-4.9) L Magnesium Level 1.5 MG/DL (1.8-2.4) L Total Bilirubin 0.5 MG/DL (0.2-1.0) Aspartate Amino Transf (AST/SGOT) 49 U/L (15-37) H Alanine Aminotransferase (ALT/SGPT) < 6 U/L (12-78) L Alkaline Phosphatase 74 U/L (46-116) Total Protein 8.8 G/DL (6.4-8.2) H Albumin 2.0 G/DL (3.4-5.0) L Globulin 6.8 g/dL Albumin/Globulin Ratio 0.3 (1.0-2.7) L Current Medications Medications (Trade) Dose Ordered Sig/Ashli Route PRN Reason Start Time Stop Time Status Last Admin Dose Admin Acetaminophen (Tylenol) 650 mg Q4H PRN ORAL Mild Pain/Temp > 100.5 01/23/17 16:00 02/18/17 00:00 Diphenhydramine HCl (Benadryl) 12.5 mg Q6H PRN IVP Itching/Pruritis 01/27/17 11:45 02/26/17 11:44 Heparin Sodium (Porcine) (Heparin 5000 units/ml) 5,000 units EVERY 8 HOURS SUBQ 01/28/17 09:00 02/27/17 08:59 01/30/17 06:08 Hydromorphone HCl (Dilaudid) 0.5 mg Q4H PRN IVP Pain Score 1-3 01/29/17 09:30 02/05/17 09:29 Hydromorphone HCl (Dilaudid) 1 mg Q4H PRN IVP pain score 4-6 01/29/17 09:30 02/05/17 09:29 01/30/17 09:00 Hydromorphone HCl (Dilaudid) 2 mg Q4H PRN IVP pain score 7-10 01/29/17 09:30 02/05/17 09:29 Metoclopramide HCl (Reglan) 10 mg Q6H PRN IVP Nausea & Vomiting 01/27/17 11:45 02/26/17 11:44 Pantoprazole (Protonix) 40 mg DAILY IVP 01/28/17 09:00 02/27/17 08:59 01/30/17 09:00 Potassium Chloride (K-Dur) 40 meq DAILY ORAL 01/26/17 09:00 02/23/17 10:29 01/30/17 09:00 CHINEDU OSORIO Jan 30, 2017 09:32
--- NOTE | 2017-01-30 10:47 | Nephrology Progress Note ---
Assessment/Plan Problem List: (1) Renal insufficiency (2) Anemia (3) Multiple myeloma (4) DM (diabetes mellitus) (5) Altered level of consciousness Assessment Cr up to 1.4 Severe Anemia, improved Proteinuria- HypoAlbuminemia- Low K- Low Na- MM- DMII- Plan stable- Post OP day 3 One liter NS Po KCL liquid diet K supplement- as needed 24 H urine Protein 1.6 grams monitor renal parameters- per consultants add flomax DC plaqnning Subjective ROS Limited/Unobtainable: No Constitutional: Reports: malaise Objective Objective Last 24 Hour Vital Signs Date Time Temp Pulse Resp B/P (MAP) Pulse Ox O2 Delivery O2 Flow Rate FiO2 01/30/17 09:30 97.7 01/30/17 08:35 97.7 116 20 133/94 98 Room Air 01/30/17 04:00 97.9 104 18 132/70 97 Room Air 01/29/17 20:00 98.6 106 18 132/78 97 Room Air 01/29/17 16:00 97.3 64 20 128/76 97 Room Air 01/29/17 12:00 98.0 88 20 123/79 99 Room Air Intake and Output 01/30/17 01/31/17 19:00 07:00 Intake Total 240 ml Balance 240 ml Intake Oral 240 ml Laboratory Tests 01/30/17 05:10: Sodium Level 134L, Potassium Level 3.8, Chloride Level 101, Carbon Dioxide Level 29, Anion Gap 4L, Blood Urea Nitrogen 10, Creatinine 1.4H, Estimat Glomerular Filtration Rate , Glucose Level 119H, Uric Acid 1.9L, Calcium Level 9.2, Phosphorus Level 2.0L, Magnesium Level 1.5L, Total Bilirubin 0.5, Aspartate Amino Transf (AST/SGOT) 49H, Alanine Aminotransferase (ALT/SGPT) < 6L , Alkaline Phosphatase 74, Total Protein 8.8H, Albumin 2.0L, Globulin 6.8, Albumin/Globulin Ratio 0.3L Height (Feet): 5 Height (Inches): 5.00 Weight (Pounds): 135 General Appearance: no apparent distress Respiratory/Chest: decreased breath sounds Abdomen: distended Objective PE not changed SHWETHA GAMBOA Jan 30, 2017 10:47
[2017-01-30] MEDS ORDERED: Tamsulosin 0.4mg cap ORAL ONE (11:00)
[2017-01-30 12:00] VITALS: BP 132/78
[2017-01-30] MEDS ORDERED: Potassium Phosphate 20 MM in NS 275 ML IV ONE (13:00)
--- NOTE | 2017-01-30 13:44 | General Progress Note ---
Progress Note Progress Note Surgery: doing much better today. tolerating diet. ambulatory. had 3x formed BM's. passing flatus. no n/v/f/c. pain much improved. afebrile, HD stable, labs reviewed abdomen soft, mild distention, incisional tenderness as anticipated, bs+, wounds d/c/i s/p lap left colectomy for large distal transverse colon tumor. recovering. improving -Full liquid diet; do not advance -Rx as written -incentive spirometry -pt/ot -ambulate and out of bed -anticipate d/c in 1-2 days if he continues to do well. Nicholas Danielle Jan 30, 2017 13:44
[2017-01-30 16:00] VITALS: BP 118/74
[2017-01-30] MEDS: Docusate 100mg cap ORAL SCH (18:00)
--- NOTE | 2017-01-30 20:17 | General Progress Note ---
Assessment/Plan Assessment/Plan (1) OB + stool ICD Codes: R19.5 - Other fecal abnormalities SNOMED: 83647351, 535985105 (2) ? colon mass (3) Altered level of consciousness ICD Codes: R40.4 - Transient alteration of awareness SNOMED: 0697749 (4) DM (diabetes mellitus) ICD Codes: E11.9 - Type 2 diabetes mellitus without complications SNOMED: 22909353 (5) Multiple myeloma ICD Codes: C90.00 - Multiple myeloma not having achieved remission SNOMED: 877899828 (6) Anemia ICD Codes: D64.9 - Anemia, unspecified SNOMED: 118846993 Qualifiers: Qualified Codes: D64.9 - Anemia, unspecified (7) Encephalopathy ICD Codes: G93.40 - Encephalopathy, unspecified SNOMED: 01814163 Status: stable Assessment/Plan s/p colonoscopy SUMMARY FINDINGS: 1. Gastritis, status post biopsy. 2. Small hiatal hernia. 3. Large colonic polyp, which was biopsied and tattooed for future surgeries. 4. Two other colonic polyps removed from hepatic flexure area. See above for details. 5. Diverticulosis. 6. Internal hemorrhoids. s/p lap assisted left colectomy for large near obstructing tumor in distal transverse colon. RECOMMENDATIONS: post op management per surgical follow biopsy results of colonoscopy >> negative for malignancy monitor H&H, prn transfusions ppi fu CEA, labs Subjective Allergies: Coded Allergies: No Known Allergies (Unverified , 01/18/17) Subjective Feels better abd pain less Objective Last 24 Hour Vital Signs Date Time Temp Pulse Resp B/P (MAP) Pulse Ox O2 Delivery O2 Flow Rate FiO2 01/30/17 18:10 98 Room Air 01/30/17 18:08 98 Room Air 01/30/17 16:00 98.1 67 18 118/74 97 Room Air 01/30/17 12:00 97.5 91 17 132/78 95 Room Air 01/30/17 09:30 97.7 01/30/17 08:35 97.7 116 20 133/94 98 Room Air 01/30/17 04:00 97.9 104 18 132/70 97 Room Air 01/29/17 20:00 98.6 106 18 132/78 97 Room Air Intake and Output 01/30/17 01/31/17 19:00 07:00 Intake Total 660 ml Output Total 300 ml Balance 360 ml Intake Oral 660 ml Output Urine Total 300 ml # Voids 2 # Bowel Movements 1 Laboratory Tests 01/30/17 05:10: Sodium Level 134L, Potassium Level 3.8, Chloride Level 101, Carbon Dioxide Level 29, Anion Gap 4L, Blood Urea Nitrogen 10, Creatinine 1.4H, Estimat Glomerular Filtration Rate , Glucose Level 119H, Uric Acid 1.9L, Calcium Level 9.2, Phosphorus Level 2.0L, Magnesium Level 1.5L, Total Bilirubin 0.5, Aspartate Amino Transf (AST/SGOT) 49H, Alanine Aminotransferase (ALT/SGPT) < 6L , Alkaline Phosphatase 74, Total Protein 8.8H, Albumin 2.0L, Globulin 6.8, Albumin/Globulin Ratio 0.3L Height (Feet): 5 Height (Inches): 5.00 Weight (Pounds): 135 Objective WDWN NCAT supple CTA RRR Soft Mild TTP abd non edema non focal DOUG CALI Jan 30, 2017 20:17
[2017-01-30 20:20] VITALS: BP 132/81
[2017-01-30] MEDS: Tamsulosin 0.4mg cap ORAL SCH (20:33)
--- NOTE | 2017-01-30 20:47 | General Progress Note ---
Assessment/Plan Problem List: (1) CHF (congestive heart failure) ICD Codes: I50.9 - Heart failure, unspecified SNOMED: 60638722 Qualifiers: Qualified Codes: I50.9 - Heart failure, unspecified (2) Anemia ICD Codes: D64.9 - Anemia, unspecified SNOMED: 665547851 Qualifiers: Qualified Codes: D64.9 - Anemia, unspecified (3) Multiple myeloma ICD Codes: C90.00 - Multiple myeloma not having achieved remission SNOMED: 661971071 (4) DM (diabetes mellitus) ICD Codes: E11.9 - Type 2 diabetes mellitus without complications SNOMED: 40803674 (5) Altered level of consciousness ICD Codes: R40.4 - Transient alteration of awareness SNOMED: 6818980 (6) Renal insufficiency ICD Codes: N28.9 - Disorder of kidney and ureter, unspecified SNOMED: 094394985, 836863614 Status: progressing Assessment/Plan multiple myeloma insomnia no sob poor prognosis possible dc in am to snf s/p juarez colectomy for large colonic polyp anemia due to mm and colonic polyp diet started per surgeon anemia once cleared by surgeon will go to snf Subjective ROS Limited/Unobtainable: Yes Allergies: Coded Allergies: No Known Allergies (Unverified , 01/18/17) Objective Last 24 Hour Vital Signs Date Time Temp Pulse Resp B/P (MAP) Pulse Ox O2 Delivery O2 Flow Rate FiO2 01/30/17 20:20 99.0 100 20 132/81 95 01/30/17 18:10 98 Room Air 01/30/17 18:08 98 Room Air 01/30/17 16:00 98.1 67 18 118/74 97 Room Air 01/30/17 12:00 97.5 91 17 132/78 95 Room Air 01/30/17 09:30 97.7 01/30/17 08:35 97.7 116 20 133/94 98 Room Air 01/30/17 04:00 97.9 104 18 132/70 97 Room Air Intake and Output 01/30/17 01/31/17 19:00 07:00 Intake Total 660 ml Output Total 300 ml Balance 360 ml Intake Oral 660 ml Output Urine Total 300 ml # Voids 2 # Bowel Movements 1 Laboratory Tests 01/30/17 05:10: Sodium Level 134L, Potassium Level 3.8, Chloride Level 101, Carbon Dioxide Level 29, Anion Gap 4L, Blood Urea Nitrogen 10, Creatinine 1.4H, Estimat Glomerular Filtration Rate , Glucose Level 119H, Uric Acid 1.9L, Calcium Level 9.2, Phosphorus Level 2.0L, Magnesium Level 1.5L, Total Bilirubin 0.5, Aspartate Amino Transf (AST/SGOT) 49H, Alanine Aminotransferase (ALT/SGPT) < 6L , Alkaline Phosphatase 74, Total Protein 8.8H, Albumin 2.0L, Globulin 6.8, Albumin/Globulin Ratio 0.3L Height (Feet): 5 Height (Inches): 5.00 Weight (Pounds): 135 Parth Gallo MD Jan 30, 2017 20:47
--- NOTE | 2017-01-30 21:05 | General Progress Note ---
Assessment/Plan Assessment/Plan ASSESSMENT AND RECOMMENDATIONS: # Drop in H/H post surgery -->better post one unit prbc, HH currently stable #. Multiple myeloma. --> Was previously on Revlimid, which can potentially cause myelosuppression --> outpatient followup #. 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 Continue to closely monitor. --> work up has been reviewed #. Mutliple colonic masses --> polyps negative for malignancy per pathology report --> s/p lap assisted colectomy #. Hypokalemia Subjective Allergies: Coded Allergies: No Known Allergies (Unverified , 01/18/17) All Systems: reviewed and negative except above Subjective feeling better, no pain reported Objective Last 24 Hour Vital Signs Date Time Temp Pulse Resp B/P (MAP) Pulse Ox O2 Delivery O2 Flow Rate FiO2 01/30/17 20:20 99.0 100 20 132/81 95 01/30/17 18:10 98 Room Air 01/30/17 18:08 98 Room Air 01/30/17 16:00 98.1 67 18 118/74 97 Room Air 01/30/17 12:00 97.5 91 17 132/78 95 Room Air 01/30/17 09:30 97.7 01/30/17 08:35 97.7 116 20 133/94 98 Room Air 01/30/17 04:00 97.9 104 18 132/70 97 Room Air Intake and Output 01/30/17 01/31/17 19:00 07:00 Intake Total 660 ml Output Total 300 ml Balance 360 ml Intake Oral 660 ml Output Urine Total 300 ml # Voids 2 # Bowel Movements 1 Laboratory Tests 01/30/17 05:10: Sodium Level 134L, Potassium Level 3.8, Chloride Level 101, Carbon Dioxide Level 29, Anion Gap 4L, Blood Urea Nitrogen 10, Creatinine 1.4H, Estimat Glomerular Filtration Rate , Glucose Level 119H, Uric Acid 1.9L, Calcium Level 9.2, Phosphorus Level 2.0L, Magnesium Level 1.5L, Total Bilirubin 0.5, Aspartate Amino Transf (AST/SGOT) 49H, Alanine Aminotransferase (ALT/SGPT) < 6L , Alkaline Phosphatase 74, Total Protein 8.8H, Albumin 2.0L, Globulin 6.8, Albumin/Globulin Ratio 0.3L Height (Feet): 5 Height (Inches): 5.00 Weight (Pounds): 135 General Appearance: no apparent distress EENT: normal ENT inspection Cardiovascular: normal peripheral pulses Respiratory/Chest: lungs clear Neurologic: normal mood/affect Skin: normal pigmentation Jose Luis Deluna Jan 30, 2017 21:05
[2017-01-31] VITALS (7 sets, daily range): BP systolic 105–137; BP diastolic 65–76
[2017-01-31] MEDS: Heparin 5000 units/ml inj SUBQ SCH ×3 (06:11→21:31)
[2017-01-31 08:24] LABS: ANION GAP 7 mmol/L (5-15); CARBON DIOXIDE 25 MMOL/L (21-32); CHLORIDE 101 MMOL/L (98-107); CREATININE 1.4 MG/DL (0.55-1.30); POTASSIUM 3.6 MMOL/L (3.5-5.1); SODIUM 133 MMOL/L (136-145)
[2017-01-31] MEDS: Docusate 100mg cap ORAL SCH (08:27)
[2017-01-31] MEDS: KCl 10% 20 mEq/15ml liquid ORAL SCH (09:13)
--- NOTE | 2017-01-31 09:37 | Infectious Diseases Prog Note ---
Assessment/Plan Assessment/Plan A. Sepsis, SIRS resolved anemia Multiple myeloma DM Cholelithiasis Diverticulosis Fatty liver colon mass s/p left colectomy Tachycardia Villous adenoma of colon P: observe off antibiotic Subjective ROS Limited/Unobtainable: Yes Allergies: Coded Allergies: No Known Allergies (Unverified , 01/18/17) Objective Vital Signs Last 24 Hour Vital Signs Date Time Temp Pulse Resp B/P (MAP) Pulse Ox O2 Delivery O2 Flow Rate FiO2 01/31/17 08:00 98.6 84 18 113/69 96 01/31/17 04:00 97.8 106 20 137/76 97 01/31/17 00:37 98.2 101 20 128/73 96 01/30/17 20:20 99.0 100 20 132/81 95 01/30/17 18:10 98 Room Air 01/30/17 18:08 98 Room Air 01/30/17 16:00 98.1 67 18 118/74 97 Room Air 01/30/17 12:00 97.5 91 17 132/78 95 Room Air Height (Feet): 5 Height (Inches): 5.00 Weight (Pounds): 135 General Appearance: no acute distress HEENT: mucous membranes moist Respiratory/Chest: lungs clear Cardiovascular: normal rate Abdomen: soft, non tender Extremities: no edema Neurologic/Psychiatric: other - sleeping Laboratory Tests Test 01/31/17 07:08 Sodium Level 133 MMOL/L (136-145) L Potassium Level 3.6 MMOL/L (3.5-5.1) Chloride Level 101 MMOL/L (98-107) Carbon Dioxide Level 25 MMOL/L (21-32) Anion Gap 7 mmol/L (5-15) Blood Urea Nitrogen 12 mg/dL (7-18) Creatinine 1.4 MG/DL (0.55-1.30) H Estimat Glomerular Filtration Rate mL/min (>60) Glucose Level 122 MG/DL (74-106) H Calcium Level 9.0 MG/DL (8.5-10.1) Current Medications Medications (Trade) Dose Ordered Sig/Ashli Route PRN Reason Start Time Stop Time Status Last Admin Dose Admin Acetaminophen (Tylenol) 650 mg Q4H PRN ORAL Mild Pain/Temp > 100.5 01/23/17 16:00 02/18/17 00:00 Docusate Sodium (Colace) 100 mg TWICE A DAY ORAL 01/30/17 18:00 03/01/17 17:59 Heparin Sodium (Porcine) (Heparin 5000 units/ml) 5,000 units EVERY 8 HOURS SUBQ 01/28/17 09:00 02/27/17 08:59 01/31/17 06:11 Hydromorphone HCl (Dilaudid) 0.5 mg Q4H PRN IVP Pain Score 1-3 01/29/17 09:30 02/05/17 09:29 Hydromorphone HCl (Dilaudid) 1 mg Q4H PRN IVP pain score 4-6 01/29/17 09:30 02/05/17 09:29 01/30/17 09:00 Hydromorphone HCl (Dilaudid) 2 mg Q4H PRN IVP pain score 7-10 01/29/17 09:30 02/05/17 09:29 01/30/17 22:29 Metoclopramide HCl (Reglan) 10 mg Q6H PRN IVP Nausea & Vomiting 01/27/17 11:45 02/26/17 11:44 Potassium Chloride (KCl 10% 20 mEq oral solution) 40 meq DAILY ORAL 01/31/17 09:00 03/02/17 08:59 01/31/17 09:13 Tamsulosin HCl (Flomax) 0.4 mg BEDTIME ORAL 01/30/17 21:00 03/01/17 20:59 01/30/17 20:33 CHINEDU OSORIO Jan 31, 2017 09:37
--- NOTE | 2017-01-31 10:13 | GI Progress Note ---
Assessment/Plan Problems: (1) OB + stool ICD Codes: R19.5 - Other fecal abnormalities SNOMED: 63621694, 283833571 (2) ? colon mass (3) Altered level of consciousness ICD Codes: R40.4 - Transient alteration of awareness SNOMED: 5258424 (4) DM (diabetes mellitus) ICD Codes: E11.9 - Type 2 diabetes mellitus without complications SNOMED: 67495438 (5) Multiple myeloma ICD Codes: C90.00 - Multiple myeloma not having achieved remission SNOMED: 745774795 (6) Anemia ICD Codes: D64.9 - Anemia, unspecified SNOMED: 676847388 Qualifiers: Qualified Codes: D64.9 - Anemia, unspecified (7) Encephalopathy ICD Codes: G93.40 - Encephalopathy, unspecified SNOMED: 91975225 Status: unchanged Status Narrative Discussed with Dr. Heller. Assessment/Plan s/p colonoscopy SUMMARY FINDINGS: 1. Gastritis, status post biopsy. 2. Small hiatal hernia. 3. Large colonic polyp, which was biopsied and tattooed for future surgeries. 4. Two other colonic polyps removed from hepatic flexure area. See above for details. 5. Diverticulosis. 6. Internal hemorrhoids. s/p lap assisted left colectomy for large near obstructing tumor in distal transverse colon. RECOMMENDATIONS: post op management per surgical follow biopsy results of colonoscopy >> negative for malignancy monitor H&H, prn transfusions ppi fu CEA, labs The patient was seen and examined at bedside and all new and available data was reviewed in the patients chart. I agree with the above findings, impression and plan. (Patient seen earlier today. Signature stamp does not reflect patient encounter time.). - Beata Heller MD Subjective Subjective limited Objective Last 24 Hour Vital Signs Date Time Temp Pulse Resp B/P (MAP) Pulse Ox O2 Delivery O2 Flow Rate FiO2 01/31/17 08:00 98.6 84 18 113/69 96 01/31/17 04:00 97.8 106 20 137/76 97 01/31/17 00:37 98.2 101 20 128/73 96 01/30/17 20:20 99.0 100 20 132/81 95 01/30/17 18:10 98 Room Air 01/30/17 18:08 98 Room Air 01/30/17 16:00 98.1 67 18 118/74 97 Room Air 01/30/17 12:00 97.5 91 17 132/78 95 Room Air Laboratory Tests Test 01/31/17 07:08 Sodium Level 133 MMOL/L (136-145) L Potassium Level 3.6 MMOL/L (3.5-5.1) Chloride Level 101 MMOL/L (98-107) Carbon Dioxide Level 25 MMOL/L (21-32) Anion Gap 7 mmol/L (5-15) Blood Urea Nitrogen 12 mg/dL (7-18) Creatinine 1.4 MG/DL (0.55-1.30) H Estimat Glomerular Filtration Rate mL/min (>60) Glucose Level 122 MG/DL (74-106) H Calcium Level 9.0 MG/DL (8.5-10.1) Height (Feet): 5 Height (Inches): 5.00 Weight (Pounds): 135 General Appearance: WD/WN, no apparent distress, alert Cardiovascular: normal rate Respiratory/Chest: normal breath sounds, no respiratory distress Abdominal Exam: normal bowel sounds, non tender, soft Extremities: non-tender Kady Verma N.Kiki Jan 31, 2017 10:13 EMILIA HELLER Feb 01, 2017 10:27
--- NOTE | 2017-01-31 10:38 | Cardiology Report ---
APPROVED REPORT EXAM: Two-dimensional and M-mode echocardiogram with Doppler and color Doppler. INDICATION Tachycardia M-Mode DIMENSIONS IVSd0.8 (0.7-1.1cm)Left Atrium (MM)4.4 (1.6-4.0cm) LVDd4.3 (3.5-5.6cm)Aortic Root3.4 (2.0-3.7cm) PWd1.1 (0.7-1.1cm)Aortic Cusp Exc.2.0 (1.5-2.0cm) LVDs2.7 (2.5-4.0cm) PWs1.2 cm Technically difficult study due to poor acoustical windows. Normal left ventricular chamber size, systolic function and wall motion. Left ventricular ejection fraction estimated to be 55-60%. Mild left ventricular hypertrophy. No evidence of pericardial or pleural effusion. Moderate left atrial enlargement by 2D. Right cardiac chamber sizes are within normal limits. Focal aortic valve sclerosis with adequate cusp excursion. Thickened mitral valve leaflets with normal excursion. Mild mitral annulus and aortic root calcification. Pulmonic valve not well visualized. Normal tricuspid valve structure. IVC is not obtainable. A color flow and spectral Doppler study was performed and revealed: Moderate aortic regurgitation. Moderate mitral regurgitation. Mitral diastolic velocities suggest reduced left ventricular relaxation c/w diastolic dysfunction grade 1. No tricuspid regurgitation.
--- NOTE | 2017-01-31 11:07 | Nephrology Progress Note ---
Assessment/Plan Problem List: (1) Renal insufficiency (2) Anemia (3) Multiple myeloma (4) DM (diabetes mellitus) (5) Altered level of consciousness Assessment Cr up to 1.4 Severe Anemia, improved Proteinuria- HypoAlbuminemia- Low K- Low Na- MM- DMII- Plan stable- Post OP day 4 NS Po KCL liquid diet K supplement- as needed 24 H urine Protein 1.6 grams monitor renal parameters- per consultants add flomax DC plaqnning Subjective ROS Limited/Unobtainable: No Constitutional: Reports: malaise Subjective 3 loose BMs Objective Objective Last 24 Hour Vital Signs Date Time Temp Pulse Resp B/P (MAP) Pulse Ox O2 Delivery O2 Flow Rate FiO2 01/31/17 08:00 98.6 84 18 113/69 96 01/31/17 04:00 97.8 106 20 137/76 97 01/31/17 00:37 98.2 101 20 128/73 96 01/30/17 20:20 99.0 100 20 132/81 95 01/30/17 18:10 98 Room Air 01/30/17 18:08 98 Room Air 01/30/17 16:00 98.1 67 18 118/74 97 Room Air 01/30/17 12:00 97.5 91 17 132/78 95 Room Air Laboratory Tests 01/31/17 07:08: Sodium Level 133L, Potassium Level 3.6, Chloride Level 101, Carbon Dioxide Level 25, Anion Gap 7, Blood Urea Nitrogen 12, Creatinine 1.4H, Estimat Glomerular Filtration Rate , Glucose Level 122H, Calcium Level 9.0 Height (Feet): 5 Height (Inches): 5.00 Weight (Pounds): 135 General Appearance: no apparent distress, lethargic Cardiovascular: other - variable Respiratory/Chest: decreased breath sounds Abdomen: soft Objective PE not changed SHWETHA GAMBOA Jan 31, 2017 11:07
[2017-01-31] MEDS ORDERED: Norco 5mg/325mg tab ORAL PRN (11:15)
[2017-01-31] MEDS ORDERED: Norco 10mg/325mg tab ORAL PRN (11:15)
[2017-01-31 11:46] LABS: ALANINE AMINOTRANSFERASE 10 U/L (12-78); ASPARTATE AMINO TRANSFERASE 53 U/L (15-37); BILIRUBIN,DIRECT 0.2 MG/DL (0.0-0.3); MAGNESIUM 2.1 MG/DL (1.8-2.4); PHOSPHORUS 1.8 MG/DL (2.5-4.9); TOTAL PROTEIN 8.8 G/DL (6.4-8.2)
--- NOTE | 2017-01-31 12:03 | General Progress Note ---
Progress Note Progress Note Surgery: doing very well. pain minimal. no n/v/f/c. tolerating diet. ambulatory. initially formed stool. now lots of diarrhea since ileus resolved. afebrile, HD stable, labs okay abdomen soft, non tender, non distended, good bowel sounds. incisions c/d/i. -d/c colace given diarrhea -advance to regular diet -oral pain meds -d/c planning for tomorrow AM -follow up with me in 1 week for staple removal Nicholas Danielle Jan 31, 2017 12:03
--- NOTE | 2017-01-31 20:54 | General Progress Note ---
Assessment/Plan Problem List: (1) CHF (congestive heart failure) ICD Codes: I50.9 - Heart failure, unspecified SNOMED: 52324997 Qualifiers: Qualified Codes: I50.9 - Heart failure, unspecified (2) Anemia ICD Codes: D64.9 - Anemia, unspecified SNOMED: 824830945 Qualifiers: Qualified Codes: D64.9 - Anemia, unspecified (3) Multiple myeloma ICD Codes: C90.00 - Multiple myeloma not having achieved remission SNOMED: 633565326 (4) DM (diabetes mellitus) ICD Codes: E11.9 - Type 2 diabetes mellitus without complications SNOMED: 14624961 (5) Altered level of consciousness ICD Codes: R40.4 - Transient alteration of awareness SNOMED: 4140351 (6) Renal insufficiency ICD Codes: N28.9 - Disorder of kidney and ureter, unspecified SNOMED: 648494147, 639224047 Status: progressing Assessment/Plan multiple myeloma insomnia no sob poor prognosis possible dc in am to snf s/p juarez colectomy for large colonic polyp dc in am to snf needs pt/ot afebrile advance diet per surgeon Subjective ROS Limited/Unobtainable: Yes Allergies: Coded Allergies: No Known Allergies (Unverified , 01/18/17) Objective Last 24 Hour Vital Signs Date Time Temp Pulse Resp B/P (MAP) Pulse Ox O2 Delivery O2 Flow Rate FiO2 01/31/17 16:00 98.6 79 18 106/65 97 01/31/17 12:00 98.1 82 19 105/70 97 01/31/17 08:00 98.6 84 18 113/69 96 01/31/17 04:00 97.8 106 20 137/76 97 01/31/17 00:37 98.2 101 20 128/73 96 Intake and Output 01/31/17 02/01/17 19:00 07:00 Intake Total 440 ml Balance 440 ml Intake Oral 440 ml # Voids 5 # Bowel Movements 4 Laboratory Tests 01/31/17 07:08: Sodium Level 133L, Potassium Level 3.6, Chloride Level 101, Carbon Dioxide Level 25, Anion Gap 7, Blood Urea Nitrogen 12, Creatinine 1.4H, Estimat Glomerular Filtration Rate , Glucose Level 122H, Calcium Level 9.0 01/31/17 10:00: Phosphorus Level 1.8L, Magnesium Level 2.1, Total Bilirubin 0.5, Direct Bilirubin 0.2, Aspartate Amino Transf (AST/SGOT) 53H, Alanine Aminotransferase ( ALT/SGPT) 10L, Alkaline Phosphatase 71, Total Protein 8.8H, Albumin 2.0L Height (Feet): 5 Height (Inches): 5.00 Weight (Pounds): 135 Parth Gallo MD Jan 31, 2017 20:54
--- NOTE | 2017-01-31 21:08 | General Progress Note ---
Assessment/Plan Assessment/Plan ASSESSMENT AND RECOMMENDATIONS: # Drop in H/H post surgery -->better post one unit prbc, HH currently stable #. Multiple myeloma. --> Was previously on Revlimid, which can potentially cause myelosuppression --> outpatient followup when discharged #. 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 Continue to closely monitor. --> work up has been reviewed #. Mutliple colonic masses --> polyps negative for malignancy per pathology report --> s/p lap assisted colectomy, well-tolerated #. Hypokalemia Subjective Allergies: Coded Allergies: No Known Allergies (Unverified , 01/18/17) All Systems: reviewed and negative except above Subjective no n/v/f/c, having diarrhea Objective Last 24 Hour Vital Signs Date Time Temp Pulse Resp B/P (MAP) Pulse Ox O2 Delivery O2 Flow Rate FiO2 01/31/17 16:00 98.6 79 18 106/65 97 01/31/17 12:00 98.1 82 19 105/70 97 01/31/17 08:00 98.6 84 18 113/69 96 01/31/17 04:00 97.8 106 20 137/76 97 01/31/17 00:37 98.2 101 20 128/73 96 Intake and Output 01/31/17 02/01/17 19:00 07:00 Intake Total 440 ml Balance 440 ml Intake Oral 440 ml # Voids 5 # Bowel Movements 4 Laboratory Tests 01/31/17 07:08: Sodium Level 133L, Potassium Level 3.6, Chloride Level 101, Carbon Dioxide Level 25, Anion Gap 7, Blood Urea Nitrogen 12, Creatinine 1.4H, Estimat Glomerular Filtration Rate , Glucose Level 122H, Calcium Level 9.0 01/31/17 10:00: Phosphorus Level 1.8L, Magnesium Level 2.1, Total Bilirubin 0.5, Direct Bilirubin 0.2, Aspartate Amino Transf (AST/SGOT) 53H, Alanine Aminotransferase ( ALT/SGPT) 10L, Alkaline Phosphatase 71, Total Protein 8.8H, Albumin 2.0L Height (Feet): 5 Height (Inches): 5.00 Weight (Pounds): 135 General Appearance: no apparent distress EENT: normal ENT inspection Neck: normal alignment Cardiovascular: normal peripheral pulses Respiratory/Chest: lungs clear Abdomen: normal bowel sounds 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
[2017-01-31] MEDS: Tamsulosin 0.4mg cap ORAL SCH (21:29)
--- NOTE | 2017-01-31 23:14 | Consultation ---
History of Present Illness General Chief Complaint: Altered Level of Consciousness Referring physician: BENJI ZAZUETA Reason for Consultation: ANEMIA Present Illness HPI 81-year-old male presents ED for evaluation. Patient brought in by EMS for evaluation. the pt is confused only oriented to self was agitated earlier Allergies: Coded Allergies: No Known Allergies (Unverified , 01/18/17) Medication History Scheduled Dexamethasone (Dexamethasone), 4 MG PO DAILY, (Reported) Tamsulosin Hcl (Tamsulosin Hcl*), 0.4 MG ORAL BEDTIME, (Reported) Miscellaneous Medications Fentanyl 50MCG Patch (Fentanyl 50MCG Patch*), 1 PATCH TOPIC, (Reported) Hydromorphone Hcl/Pf (Hydromorphone 2 Mg/Ml Syringe*), 2 MG PO, (Reported) Lenalidomide (Revlimid), 15 MG PO, (Reported) Patient History History Provided By: Patient, Medical Record, PMD Healthcare decision maker N Resuscitation status Full Code Advanced Directive on File Past Medical/Surgical History Past Medical/Surgical History: (1) Anemia (2) Multiple myeloma (3) DM (diabetes mellitus) (4) Altered level of consciousness (5) Renal insufficiency (6) CHF (congestive heart failure) (7) Gallstone (8) OB + stool (9) ? colon mass (10) Encephalopathy (11) Polyp of transverse colon Review of Systems Psychiatric: Reports: prior hx, anxiety, depressed feelings Physical Exam General Appearance: no apparent distress, alert, confused Last 24 Hour Vital Signs Date Time Temp Pulse Resp B/P (MAP) Pulse Ox O2 Delivery O2 Flow Rate FiO2 01/31/17 16:00 98.6 79 18 106/65 97 01/31/17 12:00 98.1 82 19 105/70 97 01/31/17 08:00 98.6 84 18 113/69 96 01/31/17 04:00 97.8 106 20 137/76 97 01/31/17 00:37 98.2 101 20 128/73 96 Intake and Output 01/31/17 02/01/17 19:00 07:00 Intake Total 440 ml Balance 440 ml Intake Oral 440 ml # Voids 5 # Bowel Movements 4 Laboratory Tests Test 01/31/17 07:08 01/31/17 10:00 Sodium Level 133 MMOL/L (136-145) L Potassium Level 3.6 MMOL/L (3.5-5.1) Chloride Level 101 MMOL/L (98-107) Carbon Dioxide Level 25 MMOL/L (21-32) Anion Gap 7 mmol/L (5-15) Blood Urea Nitrogen 12 mg/dL (7-18) Creatinine 1.4 MG/DL (0.55-1.30) H Estimat Glomerular Filtration Rate mL/min (>60) Glucose Level 122 MG/DL (74-106) H Calcium Level 9.0 MG/DL (8.5-10.1) Phosphorus Level 1.8 MG/DL (2.5-4.9) L Magnesium Level 2.1 MG/DL (1.8-2.4) Total Bilirubin 0.5 MG/DL (0.2-1.0) Direct Bilirubin 0.2 MG/DL (0.0-0.3) Aspartate Amino Transf (AST/SGOT) 53 U/L (15-37) H Alanine Aminotransferase (ALT/SGPT) 10 U/L (12-78) L Alkaline Phosphatase 71 U/L (46-116) Total Protein 8.8 G/DL (6.4-8.2) H Albumin 2.0 G/DL (3.4-5.0) L Height (Feet): 5 Height (Inches): 5.00 Weight (Pounds): 135 Medications Current Medications Medications (Trade) Dose Ordered Sig/Ashli Route PRN Reason Start Time Stop Time Status Last Admin Dose Admin Acetaminophen (Tylenol) 650 mg Q4H PRN ORAL Mild Pain/Temp > 100.5 01/23/17 16:00 02/18/17 00:00 Acetaminophen/ Hydrocodone Bitart ([place] 10/325) 1 ea Q4H PRN ORAL Severe Pain (Pain Scale 7-10) 01/31/17 11:15 02/07/17 11:14 Acetaminophen/ Hydrocodone Bitart ([place] 5/325) 1 tab Q4H PRN ORAL Moderate Pain (Pain Scale 4-6) 01/31/17 11:15 02/07/17 11:14 Heparin Sodium (Porcine) (Heparin 5000 units/ml) 5,000 units EVERY 8 HOURS SUBQ 01/28/17 09:00 02/27/17 08:59 01/31/17 21:31 Pantoprazole (Protonix) 40 mg DAILY ORAL 01/31/17 11:30 03/02/17 11:29 01/31/17 11:43 Potassium Chloride (KCl 10% 20 mEq oral solution) 40 meq DAILY ORAL 01/31/17 09:00 03/02/17 08:59 01/31/17 09:13 Tamsulosin HCl (Flomax) 0.4 mg BEDTIME ORAL 01/30/17 21:00 03/01/17 20:59 01/31/17 21:29 Assessment/Plan Status: stable Assessment/Plan encephalopathy zyprexa 5mg qhs Jessica Luna M.D. Jan 31, 2017 23:14
[2017-02-01 04:00] VITALS: BP 108/69
[2017-02-01] MEDS: Heparin 5000 units/ml inj SUBQ SCH ×2 (05:39→14:12)
[2017-02-01 08:06] LABS: ANION GAP 3 mmol/L (5-15); CALCIUM 9.4 MG/DL (8.5-10.1); CARBON DIOXIDE 28 MMOL/L (21-32); CHLORIDE 105 MMOL/L (98-107); CREATININE 1.4 MG/DL (0.55-1.30); MAGNESIUM 2.1 MG/DL (1.8-2.4); PHOSPHORUS 1.7 MG/DL (2.5-4.9); POTASSIUM 3.9 MMOL/L (3.5-5.1); SODIUM 135 MMOL/L (136-145)
[2017-02-01 08:37] VITALS: BP 122/79
[2017-02-01 08:42] LABS: BASOPHILS % (AUTO) 0.6 % (0.0-2.0); EOSINOPHILS % (AUTO) 2.3 % (0.0-3.0); MEAN CORPUSCULAR HEMOGLOBIN 29.9 PG (27.0-31.0); MEAN CORPUSCULAR HGB CONC 32.4 G/DL (32.0-36.0); MEAN CORPUSCULAR VOLUME 92 FL (80-99); MEAN PLATELET VOLUME 5.2 FL (6.5-10.1); PLATELET COUNT 187 K/UL (150-450); RED BLOOD COUNT 2.72 M/UL (4.70-6.10); RED CELL DISTRIBUTION WIDTH 15.8 % (11.6-14.8); WHITE BLOOD COUNT 5.7 K/UL (4.8-10.8)
[2017-02-01] MEDS: KCl 10% 20 mEq/15ml liquid ORAL SCH (08:45)
--- NOTE | 2017-02-01 10:04 | General Progress Note ---
Assessment/Plan Assessment/Plan ASSESSMENT AND RECOMMENDATIONS: # Anemia 2/2 recent surgery -->better post one unit prbc, HH currently stable #. Multiple myeloma. --> Was previously on Revlimid, which can potentially cause myelosuppression --> outpatient followup when discharged #. 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 Continue to closely monitor. --> work up has been reviewed and no iron defiency is noted #. Leukopenia 2/2 revlimid, now better, will still need treatment however, will likely worsen when treatment reinitiated #. Mutliple colonic masses --> polyps negative for malignancy per pathology report --> s/p lap assisted colectomy, well-tolerated #. Hypokalemia Subjective Constitutional: Reports: no symptoms HEENT: Reports: no symptoms Cardiovascular: Reports: no symptoms Respiratory: Reports: no symptoms Gastrointestinal/Abdominal: Reports: no symptoms Genitourinary: Reports: no symptoms Neurologic/Psychiatric: Reports: no symptoms Endocrine: Reports: no symptoms Hematologic/Lymphatic: Reports: anemia Allergies: Coded Allergies: No Known Allergies (Unverified , 01/18/17) Subjective no n/v/f/c, having diarrhea, h/h stable Objective Last 24 Hour Vital Signs Date Time Temp Pulse Resp B/P (MAP) Pulse Ox O2 Delivery O2 Flow Rate FiO2 02/01/17 09:44 98.0 02/01/17 08:37 98.0 109 20 122/79 99 02/01/17 04:00 97.9 75 18 108/69 97 Room Air 01/31/17 23:59 98.3 102 20 123/65 96 Room Air 01/31/17 20:00 98.6 100 19 113/72 98 01/31/17 16:00 98.6 79 18 106/65 97 01/31/17 12:00 98.1 82 19 105/70 97 Intake and Output 02/01/17 02/02/17 19:00 07:00 Intake Total 390 ml Balance 390 ml Intake Oral 390 ml Laboratory Tests 02/01/17 06:50: White Blood Count 5.7, Red Blood Count 2.72L, Hemoglobin 8.1L, Hematocrit 25.1L , Mean Corpuscular Volume 92, Mean Corpuscular Hemoglobin 29.9, Mean Corpuscular Hemoglobin Concent 32.4, Red Cell Distribution Width 15.8H, Platelet Count 187, Mean Platelet Volume 5.2L, Neutrophils (%) (Auto) 75.0, Lymphocytes (%) (Auto) 15.0L, Monocytes (%) (Auto) 7.0, Eosinophils (%) (Auto) 2.3, Basophils (%) (Auto) 0.6, Sodium Level 135L, Potassium Level 3.9, Chloride Level 105, Carbon Dioxide Level 28, Anion Gap 3L, Blood Urea Nitrogen 17, Creatinine 1.4H, Estimat Glomerular Filtration Rate , Glucose Level 114H, Calcium Level 9.4, Phosphorus Level 1.7L, Magnesium Level 2.1 Height (Feet): 5 Height (Inches): 5.00 Weight (Pounds): 135 General Appearance: no apparent distress EENT: normal ENT inspection Neck: normal alignment Cardiovascular: normal rate Respiratory/Chest: no respiratory distress Abdomen: soft Extremities: non-tender Edema: 1+ Leg (L), 1+ Leg (R) Edema: mild edema Neurologic: alert Jose Luis Deluna Feb 01, 2017 10:04
[2017-02-01] MEDS ORDERED: HEPARIN SO5000 UNIT2 SUBQ (10:33)
[2017-02-01] MEDS ORDERED: ACETAMINOPHEN325 M1 ORAL (10:33)
[2017-02-01] MEDS ORDERED: NORCO 10-325 T1 EACH ORAL (10:34)
[2017-02-01] MEDS ORDERED: PROTONIX40 MG ORAL (10:35)
[2017-02-01] MEDS ORDERED: NORCO 5-325 TA1 EACH ORAL (10:35)
[2017-02-01] MEDS ORDERED: POTASSIUM40 MEQ/11 PO (10:37)
[2017-02-01] MEDS ORDERED: TAMSULOSIN HCL0.4 MG ORAL (10:37)
--- NOTE | 2017-02-01 10:57 | General Progress Note ---
Progress Note Progress Note Surgery: doing remarkably well. no complaints. no n/v/f/c. states pain improved. no longer having diarrhea and now soft stools. afebrile, HD stable, labs reviewed abdomen soft, nt/nd, bs+, incisions c/d/i sherita removed and steri strips applied. s/p lap left colon for large distal transverse colon tumor. recovering -diet as tolerated -activity as tolerated -okay to shower -wounds healing well. leave steri strips until they fall off. dressings only needed prn -Rx for pain meds written -okay to d/c to SNF today follow up with me in 2 weeks. spoke with daughter who has my office info and will make appointment. Nicholas Danielle Feb 01, 2017 10:57
[2017-02-01 11:41] VITALS: BP 119/67
--- NOTE | 2017-02-01 13:43 | Infectious Diseases Prog Note ---
Assessment/Plan Assessment/Plan A. Sepsis, SIRS resolved anemia Multiple myeloma DM Cholelithiasis Diverticulosis Fatty liver colon mass s/p left colectomy Tachycardia Tubovillous adenoma of colon P: observe off antibiotic Subjective ROS Limited/Unobtainable: No Constitutional: Reports: no symptoms Respiratory: Reports: no symptoms Cardiovascular: Reports: no symptoms Gastrointestinal/Abdominal: Reports: other - pain with eating foot Genitourinary: Reports: no symptoms Allergies: Coded Allergies: No Known Allergies (Unverified , 01/18/17) Objective Vital Signs Last 24 Hour Vital Signs Date Time Temp Pulse Resp B/P (MAP) Pulse Ox O2 Delivery O2 Flow Rate FiO2 02/01/17 11:41 98.3 100 20 119/67 99 02/01/17 09:44 98.0 02/01/17 08:37 98.0 109 20 122/79 99 02/01/17 04:00 97.9 75 18 108/69 97 Room Air 01/31/17 23:59 98.3 102 20 123/65 96 Room Air 01/31/17 20:00 98.6 100 19 113/72 98 01/31/17 16:00 98.6 79 18 106/65 97 Height (Feet): 5 Height (Inches): 5.00 Weight (Pounds): 135 General Appearance: no acute distress HEENT: mucous membranes moist Respiratory/Chest: lungs clear Cardiovascular: normal rate Abdomen: soft, non tender Extremities: no edema Neurologic/Psychiatric: alert, oriented x 3, responsive Laboratory Tests Test 02/01/17 06:50 White Blood Count 5.7 K/UL (4.8-10.8) Red Blood Count 2.72 M/UL (4.70-6.10) L Hemoglobin 8.1 G/DL (14.2-18.0) L Hematocrit 25.1 % (42.0-52.0) L Mean Corpuscular Volume 92 FL (80-99) Mean Corpuscular Hemoglobin 29.9 PG (27.0-31.0) Mean Corpuscular Hemoglobin Concent 32.4 G/DL (32.0-36.0) Red Cell Distribution Width 15.8 % (11.6-14.8) H Platelet Count 187 K/UL (150-450) Mean Platelet Volume 5.2 FL (6.5-10.1) L Neutrophils (%) (Auto) 75.0 % (45.0-75.0) Lymphocytes (%) (Auto) 15.0 % (20.0-45.0) L Monocytes (%) (Auto) 7.0 % (1.0-10.0) Eosinophils (%) (Auto) 2.3 % (0.0-3.0) Basophils (%) (Auto) 0.6 % (0.0-2.0) Sodium Level 135 MMOL/L (136-145) L Potassium Level 3.9 MMOL/L (3.5-5.1) Chloride Level 105 MMOL/L (98-107) Carbon Dioxide Level 28 MMOL/L (21-32) Anion Gap 3 mmol/L (5-15) L Blood Urea Nitrogen 17 mg/dL (7-18) Creatinine 1.4 MG/DL (0.55-1.30) H Estimat Glomerular Filtration Rate mL/min (>60) Glucose Level 114 MG/DL (74-106) H Calcium Level 9.4 MG/DL (8.5-10.1) Phosphorus Level 1.7 MG/DL (2.5-4.9) L Magnesium Level 2.1 MG/DL (1.8-2.4) Current Medications Medications (Trade) Dose Ordered Sig/Ashli Route PRN Reason Start Time Stop Time Status Last Admin Dose Admin Acetaminophen (Tylenol) 650 mg Q4H PRN ORAL Mild Pain/Temp > 100.5 01/23/17 16:00 02/18/17 00:00 Acetaminophen/ Hydrocodone Bitart (Bland 10/325) 1 ea Q4H PRN ORAL Severe Pain (Pain Scale 7-10) 01/31/17 11:15 02/07/17 11:14 02/01/17 08:45 Acetaminophen/ Hydrocodone Bitart (Bland 5/325) 1 tab Q4H PRN ORAL Moderate Pain (Pain Scale 4-6) 01/31/17 11:15 02/07/17 11:14 Heparin Sodium (Porcine) (Heparin 5000 units/ml) 5,000 units EVERY 8 HOURS SUBQ 01/28/17 09:00 02/27/17 08:59 02/01/17 05:39 Pantoprazole (Protonix) 40 mg DAILY ORAL 01/31/17 11:30 03/02/17 11:29 02/01/17 08:44 Potassium Chloride (KCl 10% 20 mEq oral solution) 40 meq DAILY ORAL 01/31/17 09:00 03/02/17 08:59 02/01/17 08:45 Tamsulosin HCl (Flomax) 0.4 mg BEDTIME ORAL 01/30/17 21:00 03/01/17 20:59 01/31/17 21:29 CHINEDU OSORIO Feb 01, 2017 13:43
--- NOTE | 2017-02-01 14:42 | Nephrology Progress Note ---
Assessment/Plan Problem List: (1) Renal insufficiency (2) Anemia (3) Multiple myeloma (4) DM (diabetes mellitus) (5) Altered level of consciousness Assessment Cr up to 1.4- stable Severe Anemia, improved Proteinuria- HypoAlbuminemia- Low K- Low Na- MM- DMII- Plan Stable- Post OP day 5 NS Po Phos liquid diet K supplement- as needed 24 H urine Protein 1.6 grams monitor renal parameters- per consultants add flomax DC plaqnning Subjective ROS Limited/Unobtainable: No Subjective 3 loose BMs Objective Objective Last 24 Hour Vital Signs Date Time Temp Pulse Resp B/P (MAP) Pulse Ox O2 Delivery O2 Flow Rate FiO2 02/01/17 11:41 98.3 100 20 119/67 99 02/01/17 09:44 98.0 02/01/17 08:37 98.0 109 20 122/79 99 02/01/17 04:00 97.9 75 18 108/69 97 Room Air 01/31/17 23:59 98.3 102 20 123/65 96 Room Air 01/31/17 20:00 98.6 100 19 113/72 98 01/31/17 16:00 98.6 79 18 106/65 97 Intake and Output 02/01/17 02/02/17 19:00 07:00 Intake Total 590 ml Balance 590 ml Intake Oral 590 ml # Bowel Movements 1 Laboratory Tests 02/01/17 06:50: White Blood Count 5.7, Red Blood Count 2.72L, Hemoglobin 8.1L, Hematocrit 25.1L , Mean Corpuscular Volume 92, Mean Corpuscular Hemoglobin 29.9, Mean Corpuscular Hemoglobin Concent 32.4, Red Cell Distribution Width 15.8H, Platelet Count 187, Mean Platelet Volume 5.2L, Neutrophils (%) (Auto) 75.0, Lymphocytes (%) (Auto) 15.0L, Monocytes (%) (Auto) 7.0, Eosinophils (%) (Auto) 2.3, Basophils (%) (Auto) 0.6, Sodium Level 135L, Potassium Level 3.9, Chloride Level 105, Carbon Dioxide Level 28, Anion Gap 3L, Blood Urea Nitrogen 17, Creatinine 1.4H, Estimat Glomerular Filtration Rate , Glucose Level 114H, Calcium Level 9.4, Phosphorus Level 1.7L, Magnesium Level 2.1 Height (Feet): 5 Height (Inches): 5.00 Weight (Pounds): 135 Objective PE not changed SHWETHA GAMBOA Feb 01, 2017 14:42
[2017-02-01 15:00] VITALS: BP 115/63
--- NOTE | 2017-02-01 15:10 | General Progress Note ---
Assessment/Plan Status: stable Subjective Neurologic/Psychiatric: Reports: anxiety, depressed, emotional problems Allergies: Coded Allergies: No Known Allergies (Unverified , 01/18/17) Subjective the pt is doing better Objective Last 24 Hour Vital Signs Date Time Temp Pulse Resp B/P (MAP) Pulse Ox O2 Delivery O2 Flow Rate FiO2 02/01/17 11:41 98.3 100 20 119/67 99 02/01/17 09:44 98.0 02/01/17 08:37 98.0 109 20 122/79 99 02/01/17 04:00 97.9 75 18 108/69 97 Room Air 01/31/17 23:59 98.3 102 20 123/65 96 Room Air 01/31/17 20:00 98.6 100 19 113/72 98 01/31/17 16:00 98.6 79 18 106/65 97 Intake and Output 02/01/17 02/02/17 19:00 07:00 Intake Total 590 ml Balance 590 ml Intake Oral 590 ml # Bowel Movements 1 Laboratory Tests 02/01/17 06:50: White Blood Count 5.7, Red Blood Count 2.72L, Hemoglobin 8.1L, Hematocrit 25.1L , Mean Corpuscular Volume 92, Mean Corpuscular Hemoglobin 29.9, Mean Corpuscular Hemoglobin Concent 32.4, Red Cell Distribution Width 15.8H, Platelet Count 187, Mean Platelet Volume 5.2L, Neutrophils (%) (Auto) 75.0, Lymphocytes (%) (Auto) 15.0L, Monocytes (%) (Auto) 7.0, Eosinophils (%) (Auto) 2.3, Basophils (%) (Auto) 0.6, Sodium Level 135L, Potassium Level 3.9, Chloride Level 105, Carbon Dioxide Level 28, Anion Gap 3L, Blood Urea Nitrogen 17, Creatinine 1.4H, Estimat Glomerular Filtration Rate , Glucose Level 114H, Calcium Level 9.4, Phosphorus Level 1.7L, Magnesium Level 2.1 Height (Feet): 5 Height (Inches): 5.00 Weight (Pounds): 135 General Appearance: no apparent distress, alert Neurologic: alert, oriented x 3, responsive Jessica Luna M.D. Feb 01, 2017 15:10
[2017-02-01] MEDS ORDERED: PHOSPHA 250 NE250 M1 PO (15:11)
[2017-02-01] MEDS ORDERED: Tubing IV Secondary IV ONE (15:29)
[2017-02-01] MEDS ORDERED: Tubing Blood Filter IV ONE (15:29)
[2017-02-01] MEDS ORDERED: NS 275ml ONE (15:29)
[2017-02-01] MEDS ORDERED: Phospha 250 Neutral tab ORAL SCH (15:30)
--- NOTE | 2017-02-01 15:58 | GI Progress Note ---
Assessment/Plan Problems: (1) OB + stool ICD Codes: R19.5 - Other fecal abnormalities SNOMED: 02416097, 590627748 (2) ? colon mass (3) Altered level of consciousness ICD Codes: R40.4 - Transient alteration of awareness SNOMED: 2383937 (4) DM (diabetes mellitus) ICD Codes: E11.9 - Type 2 diabetes mellitus without complications SNOMED: 46971267 (5) Multiple myeloma ICD Codes: C90.00 - Multiple myeloma not having achieved remission SNOMED: 300326125 (6) Anemia ICD Codes: D64.9 - Anemia, unspecified SNOMED: 166883940 Qualifiers: Qualified Codes: D64.9 - Anemia, unspecified (7) Encephalopathy ICD Codes: G93.40 - Encephalopathy, unspecified SNOMED: 36430807 Status: stable Status Narrative Discussed with Dr. Heller. Assessment/Plan s/p colonoscopy SUMMARY FINDINGS: 1. Gastritis, status post biopsy. 2. Small hiatal hernia. 3. Large colonic polyp, which was biopsied and tattooed for future surgeries. 4. Two other colonic polyps removed from hepatic flexure area. See above for details. 5. Diverticulosis. 6. Internal hemorrhoids. s/p lap assisted left colectomy for large near obstructing tumor in distal transverse colon. RECOMMENDATIONS: okay for DC per GI standpoint post op management per surgical follow biopsy results of colonoscopy >> negative for malignancy monitor H&H, prn transfusions ppi fu CEA, labs Subjective Subjective limited Objective Last 24 Hour Vital Signs Date Time Temp Pulse Resp B/P (MAP) Pulse Ox O2 Delivery O2 Flow Rate FiO2 02/01/17 15:00 98.7 97 18 115/63 97 02/01/17 11:41 98.3 100 20 119/67 99 02/01/17 11:41 99 Room Air 02/01/17 09:44 98.0 02/01/17 08:37 98.0 109 20 122/79 99 02/01/17 08:37 99 Room Air 02/01/17 04:00 97.9 75 18 108/69 97 Room Air 01/31/17 23:59 98.3 102 20 123/65 96 Room Air 01/31/17 20:00 98.6 100 19 113/72 98 01/31/17 16:00 98.6 79 18 106/65 97 Intake and Output 02/01/17 02/02/17 19:00 07:00 Intake Total 590 ml Balance 590 ml Intake Oral 590 ml # Voids 2 # Bowel Movements 1 Laboratory Tests Test 02/01/17 06:50 White Blood Count 5.7 K/UL (4.8-10.8) Red Blood Count 2.72 M/UL (4.70-6.10) L Hemoglobin 8.1 G/DL (14.2-18.0) L Hematocrit 25.1 % (42.0-52.0) L Mean Corpuscular Volume 92 FL (80-99) Mean Corpuscular Hemoglobin 29.9 PG (27.0-31.0) Mean Corpuscular Hemoglobin Concent 32.4 G/DL (32.0-36.0) Red Cell Distribution Width 15.8 % (11.6-14.8) H Platelet Count 187 K/UL (150-450) Mean Platelet Volume 5.2 FL (6.5-10.1) L Neutrophils (%) (Auto) 75.0 % (45.0-75.0) Lymphocytes (%) (Auto) 15.0 % (20.0-45.0) L Monocytes (%) (Auto) 7.0 % (1.0-10.0) Eosinophils (%) (Auto) 2.3 % (0.0-3.0) Basophils (%) (Auto) 0.6 % (0.0-2.0) Sodium Level 135 MMOL/L (136-145) L Potassium Level 3.9 MMOL/L (3.5-5.1) Chloride Level 105 MMOL/L (98-107) Carbon Dioxide Level 28 MMOL/L (21-32) Anion Gap 3 mmol/L (5-15) L Blood Urea Nitrogen 17 mg/dL (7-18) Creatinine 1.4 MG/DL (0.55-1.30) H Estimat Glomerular Filtration Rate mL/min (>60) Glucose Level 114 MG/DL (74-106) H Calcium Level 9.4 MG/DL (8.5-10.1) Phosphorus Level 1.7 MG/DL (2.5-4.9) L Magnesium Level 2.1 MG/DL (1.8-2.4) Height (Feet): 5 Height (Inches): 5.00 Weight (Pounds): 135 General Appearance: WD/WN, no apparent distress, alert Cardiovascular: normal rate Respiratory/Chest: normal breath sounds, no respiratory distress Abdominal Exam: normal bowel sounds, non tender, soft Extremities: non-tender Kady Verma N.P. Feb 01, 2017 15:58
--- NOTE | 2017-02-03 15:22 | Discharge Summary ---
Discharge Summary Hospital Course Date of Admission Jan 18, 2017 at 22:03 Date of Discharge Feb 01, 2017 at 15:30 Admitting Diagnosis ALTERED MENTAL STATUS HPI Stephan Fraser is a 81 year old male who was admitted on Jan 18, 2017 at 22:03 for Altered Mental Status Hospital Course [id number] Discharge Discharge Disposition Patient was discharged to SNF/Subacute Facility(03) Discharge Diagnoses: Patricia Shahid NP Feb 03, 2017 15:22
--- NOTE | 2017-02-03 17:30 | Discharge Summary 2 SIG ---
DATE OF ADMISSION: 01/18/2017 DATE OF DISCHARGE: 02/01/2017 CONSULTANTS: 1. Bradly Heller M.D. 2. Steffen Quigley M.D. 3. Jeremias Huynh M.D. 4. Kristopher Tompkins M.D. 5. Toby Vu M.D. 6. Nicholas Danielle M.D. 7. Jose Luis Deluna M.D. BRIEF HOSPITAL COURSE: The patient is an 81-year-old male with history of multiple myeloma, apparently has been falling a lot recently. He has history of CHF, chronic renal insufficiency, BPH, and has been appeared more lethargic than usual. He was taken to [facility] via EMS and on evaluation, the patient had low-grade fever. Temperature was 100.8 degrees and pulse 110. Blood work showed no leukocytosis, however, had anemia. Hemoglobin 7.3 and hematocrit 23.4. Potassium 3.0 and creatinine 1.5. BNP 1892. Troponin was negative. He had a chest x-ray done that showed no definite acute process. Head CT with chronic age-related changes. Negative acute intracranial bleed or mass effect. EKG was in normal sinus rhythm with no acute ischemic changes. The patient davila multiple myeloma and was previously on Revlimid, which can potentially cause myelosuppression. He was admitted for anemia and altered level of consciousness. He was given blood transfusion. The patient had sepsis and SIRS syndrome with fever and tachycardia. He was started empirically on ceftriaxone and Zithromax. Low-grade fever eventually resolved. Pulmonary status was stable. Echocardiogram was done. EF 55% to 60%. Venous duplex of lower extremity was negative for DVT. He underwent EGD on 01/25/[address] Heller. Findings showed gastritis with large colonic polyp, which was biopsied and tattooed for future surgeries. There were two other colonic polyps that were removed from hepatic flexure area. There were findings of diverticulosis and internal hemorrhoids. He was recommended surgical evaluation for removal of large polyp and was seen by Dr. Danielle. CAT scan of the abdomen and pelvis demonstrated a large distal transverse colon mass and recent endoscopy showed large polyp in the distal transverse colon, could not be resected endoscopically. Given size, this could potentially become obstructive requiring emergent high risk surgery. On 01/27/2017, he underwent laparoscopic-assisted colectomy by Dr. Danielle. He tolerated procedure well and postoperatively, he was given incentive spirometry. Diet was slowly advanced, awaiting return of bowel function. He was encouraged to ambulate out of bed and was given PT, OT. He was given Ancef perioperatively. Blood cultures did not isolate any growth. He was taken off antibiotic treatment. 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 Invasive carcinoma measures 1.1 cm, tubulovillous adenoma measures 3.1 cm. There is a tumor extending into submucosa. All surgical resection margins were negative for dysplasia or malignancy. Eight lymph nodes were negative for metastatic carcinoma. He was eventually started on diet. He had episodes of agitation and was treated with Zyprexa. He was tolerating diet well. He was cleared for discharge to SNF to follow up with surgeon in two weeks and to follow up with the oncologist. FINAL DIAGNOSES: 1. Altered level of consciousness/ acute encephalopathy. 2. Multiple myeloma. 3. 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 4. Anemia. 5. Renal insufficiency. 6. Proteinuria. 7. Hypoalbuminemia. 8. Acute anemia requiring blood transfusion. 9. Leukopenia secondary to Revlimid. 10. Hypokalemia. 11. Status post esophagogastroduodenoscopy. 12. Status postop laparoscopic-assisted left colectomy. DISPOSITION: The patient was discharged to [facility]. DISCHARGE MEDICATIONS: Refer to medication list. DISCHARGE INSTRUCTIONS: Diet as tolerated. Activity as tolerated. Okay to shower. Leave Steri-Strips until they fall off. Dressing only as needed p.r.n. Follow up with Dr. Danielle in two weeks. Parth Gallo M.D. I have been assigned to dictate discharge summary on this account and I was not involved in the patient's management. Patricia Shahid N.P. DR: Truman JOB#: [id number] CC: BRAD
== END 2017-02-01 15:30 | DRG 853 ==
LOC: EDBD 18:46 → EMR 19:10 → EDBEDREQ 21:28 → EDBEDREQSVC 21:28 → EDBEDREQ 21:47 → 2W 22:03 → 3E 01-23 12:50
PROC: 0DB68ZX Excision of Stomach, Via Natural or Artificial Opening Endoscopic, Diagnostic (ICD-10-PCS; principal; 2017-01-25 08:30)
PROC: 0DBL8ZX Excision of Transverse Colon, Via Natural or Artificial Opening Endoscopic, Diagnostic (ICD-10-PCS; principal; 2017-01-25 08:30)
PROC: 0DTG0ZZ Resection of Left Large Intestine, Open Approach (ICD-10-PCS; 2017-01-27)
DX: A41.9 Sepsis, unspecified organism (principal); G93.40 Encephalopathy, unspecified; N17.9 Acute kidney failure, unspecified; C90.00 Multiple myeloma not having achieved remission; E87.1 Hypo-osmolality and hyponatremia; I11.0 Hypertensive heart disease with heart failure; I50.9 Heart failure, unspecified; K56.7 Ileus, unspecified; C18.4 Malignant neoplasm of transverse colon; J98.11 Atelectasis; D64.9 Anemia, unspecified; E88.09 Other disorders of plasma-protein metabolism, not elsewhere classified; E11.9 Type 2 diabetes mellitus without complications; E87.6 Hypokalemia; K57.90 Diverticulosis of intestine, part unspecified, without perforation or abscess without bleeding; N28.9 Disorder of kidney and ureter, unspecified; K63.5 Polyp of colon; R65.20 Severe sepsis without septic shock; N40.0 Benign prostatic hyperplasia without lower urinary tract symptoms; R29.6 Repeated falls
CPT/HCPCS: 36415; 70450; 71010; 74177; 80048; 80053; 80076; 81003; 81050; 82247; 82270; 82378; 82550; 82553; 82607; 82728; 82746; 83036; 83540; 83550; 83605; 83615; 83735; 83880; 84100; 84156; 84443; 84484; 84550; 85007; 85025; 85044; 85384; 85610; 85730; 86140; 86850; 86900; 86901; 86920; 87040; 93005; 93306; 93970; 94003; 94150; 99285; C9399; J2250; J2370; J2405; J8499